=== PATIENT | female | born 1950 | race Caucasian/White ===

== ENCOUNTER 2017-08-01 09:49 | Inpatient (IN) ==
--- NOTE | 2017-08-01 10:32 | Cat Scan Report ---
CLINICAL INFORMATION: History of seizures. Decreased level consciousness question CVA COMPARISON: None. TECHNIQUE: 2.5 mm helical slices were obtained in the skull base to vertex. Following reconstruction, axial reformatted images were reviewed at bone and parenchymal windows. The exam was performed using radiation dose optimization techniques including, but not limited to, automated exposure control, adjustment of the mA and/or kV according to patient size and use of iterative reconstruction technique. FINDINGS: The ventricles, sulci, fissures, and cisterns are normal in size and configuration. No extra-axial fluid collections are identified. The cerebrum, brainstem and cerebellum are unremarkable. There is no evidence of hemorrhage, mass effect, or edema. Bone windows show benign hyperostosis in the inner skull table of the frontal temporal calvaria. IMPRESSION: No intracerebral abnormality. Interpreted and Authenticated by: Zach Tang 08/01/17
[2017-08-01 11:10] LABS: Basophils # (Auto) 0 K/mcL (0.0-0.3); Basophils % (Auto) 0.6 % (0.0-2.0); Eosinophils # (Auto) 0.2 K/mcL (0.0-0.7); Eosinophils % (Auto) 2.1 % (0.0-7.0); Granulocytes % (Auto) 66.1 % (38.0-78.0); Lymphocytes # (Auto) 1.5 K/mcL (1.5-4.8); Lymphocytes % (Auto) 19.6 % (15.5-49.0); Mean Cell Volume 93.9 fL (80.0-100.0); Mean Corpuscular HGB Conc 34.3 g/dL (31.0-36.0); Mean Corpuscular Hemoglobin 32.2 pg (26.0-34.0); Monocytes # (Auto) 0.9 K/mcL (0.1-0.9); Monocytes % (Auto) 11.6 % (1.0-12.0); Platelet Count 291 K/mcL (140-440); RBC 4.17 M/mcL (4.00-5.20); Red Cell Distribution Width 12.4 % (11.5-14.5)
--- NOTE | 2017-08-01 11:11 | Emergency Department Note ---
Altered Mental Status HPI - General Chief Complaint: Altered Mental Status Stated Complaint: Altered LOC Time Seen by Provider: 08/01/17 11:04 Source: patient Mode of arrival: ambulatory Limitations: no limitations - History of Present Illness HPI Narrative: This 66-year-old female comes in brought by her family. She lives alone and was in her usual state of mind 3 days ago when she was last called by 1 of her family members. Today she is accompanied by her brother Geovani, sister- in-law Jeri who is to Geovani, and her sister Coco. Patient reportedly called another brother named Bill who called Coco the sister and the 3 of these people Geovani, Jeri, Coco went to her home. She had called Dr. Herron' s office and Skyla had called 911 from his office. This was due to apparent confusion. They found her weak and very difficult to get into the car. EMS had evaluated her and she was brought by private car here. She was quite wobbly but no specific extremity weakness per se. She seems some confused. She could not find her purse. She wondered about her car thinking it was in town. She is very private about her health and medical conditions and so there is a question of some of the history and difficult to obtain from these pleasant family members. Patient reports a history of her urine being brown for 1 week. She also reports that she stopped taking her medications around a week ago and that she stopped drinking water around a week ago. She says she was told to do this. She reports that Medicare has put a motion detector in her home. Also that the density trap for her so she could get out. She admits to a fall recently when going up stairs but no head injury. She states that Medicare has decided "to play God" and there was a loss of coverage of some of her medications. She has a history of insomnia, her previous past medical history includes schizophrenia and depression but she denies schizophrenia. She has significant pauses in the answers to her questions were family states that this is normal. - Related Data Home Medications Medication Instructions Recorded Confirmed buspirone 5 mg tablet 5 mg PO TID PRN tab 03/26/15 03/16/17 cyclobenzaprine 10 mg tablet 10 mg PO TID PRN tab 03/26/15 03/16/17 dicyclomine 20 mg tablet 20 mg PO QDAY tab 03/26/15 03/16/17 orphenadrine citrate ER 100 mg See Dose Instructions PO .COMPLEX 03/26/15 tablet,extended release tab bimatoprost 0.01 % eye drops 1 drp OPHTHALMIC QPM ml 05/23/15 03/16/17 omeprazole 20 mg capsule,delayed 20 mg PO .COMPLEX cap 07/07/17 release Previous Rx's Medication Instructions Recorded Acetaminophen W/Codeine #3 1 tab PO Q6HP PRN #20 tab 05/28/16 [Tylenol #3] albendazole 200 mg tablet 400 mg PO BID #20 tab 06/01/16 silver ER topical gel,extended 1 applic TOPICAL QDAY #7.4 ml 06/01/16 release albuterol sulfate HFA 90 2 puff INHALATION Q6H PRN #18 g 08/04/16 mcg/actuation aerosol inhaler nortriptyline 25 mg capsule 25 mg PO QHS #30 cap 08/11/16 meclizine 25 mg tablet 25 mg PO QDAY PRN #30 tab 10/27/16 gemfibrozil 600 mg tablet 600 mg PO BID #60 tab 11/29/16 olanzapine 10 mg tablet 10 mg PO QDAY #30 tab 12/23/16 clindamycin 150 mg capsule 150 mg PO BID #20 cap 03/25/17 duloxetine 60 mg capsule,delayed 60 mg PO QDAY #90 cap 04/08/17 release phenytoin sodium extended 100 mg See Dose Instructions PO .COMPLEX 04/08/17 capsule #360 cap armodafinil 150 mg tablet 150 mg PO .COMPLEX #60 tab 04/22/17 oxybutynin chloride 5 mg tablet 10 mg PO BID PRN #120 tab 05/12/17 carvedilol 12.5 mg tablet 12.5 mg PO BID #60 tab 06/20/17 Allergies Allergy/AdvReac Type Severity Reaction Status Date / Time Amoxicillin Allergy Unknown Hives Verified 08/01/17 09:59 azithromycin Allergy Unknown Unknown Verified 08/01/17 09:59 Penicillins Allergy Unknown Unknown Verified 08/01/17 09:59 cefuroxime [From Ceftin] Allergy Diarrhea Verified 08/01/17 09:59 ciprofloxacin [From Cipro] Allergy Hives Verified 08/01/17 09:59 sulfamethoxazole Allergy Hives Verified 08/01/17 09:59 [From ] trimethoprim [From ] Allergy Hives Verified 08/01/17 09:59 Tetracycline AdvReac Unknown Unknown Verified 08/01/17 09:59 Review of Systems Constitutional: Reports: weakness. Denies: fever, chills Eyes: Reports: vision change (Has a history of macular degeneration.) ENT ED: Reports: other (Dry throat/mouth) Cardiovascular: Reports: other (Previously her heart was beating really fast. She was on Corgard 40 mg but this was increased to 80 mg but this was years ago. ). Denies: chest pain, palpitations Respiratory: Denies: cough, shortness of breath Gastrointestinal: Denies: nausea, vomiting, diarrhea, constipation Genitourinary: Reports: frequency (In her medications I find oxybutynin and darifenacin.) Neurological: Reports: headache (Intermittently), weakness, paresthesias ( Sometimes of her left leg.) Psychiatric: Reports: depression. Denies: anxiety Hematological/Lymphatic: Reports: other (Is not on any anticoagulants. She does take Excedrin sometimes for headaches.) Past Medical History - Past Medical History Medical history: Reports: hyperlipidemia, hypertension, other. Denies: atrial fibrillation, cancer, CVA, dementia, diabetes, myocardial infarction Psychiatric history: Reports: depression (She relates this to the passing of her brother Pipe, in January but family corrects the timing on this to be March.), schizophrenia Surgical history ED: Reports: cataract - Social History smoking status: Never smoker Alcohol use: Reports: None Drug use: Reports: none Physical Exam Limitations: no limitations General appearance: alert, in no apparent distress Head: atraumatic, normocephalic Eye: Present: PERRL, EOMI, other (Bilateral IOL) ENT: mucous membranes dry, other (Bilateral cerumen impaction) Neck: Present: trachea midline. Absent: tenderness, lymphadenopathy, thyromegaly Respiratory: Present: normal lung sounds bilaterally. Absent: respiratory distress, wheezes, stridor, accessory muscle use, prolonged expiratory phase Cardiovascular: Present: regular rate, normal rhythm. Absent: systolic murmur, diastolic murmur Abdominal: Present: soft. Absent: distention, tenderness Extremities: Absent: pedal edema, pretibial edema Back: Absent: CVA tenderness (R), CVA tenderness (L) Neurological: Present: alert, oriented X3, other (Was oriented to circumstances and place as well. Oriented in time. Thought that the president was Alli. There is a significant pause with her eyes staring not looking always at me for 3-6 seconds before responding to questions.) Psychiatric: Present: flat affect. Absent: agitated, anxious, manic Skin: Present: warm, dry Course Vital Signs Temperature 98.4 F 08/01/17 09:51 Pulse Rate 68 08/01/17 09:51 Respiratory Rate 18 08/01/17 09:51 Blood Pressure 141/63 08/01/17 09:51 Pulse Oximetry (%) 98 08/01/17 09:51 Temperature 98.4 F 08/01/17 09:51 Pulse Rate 65 08/01/17 13:31 Respiratory Rate 16 08/01/17 13:31 Blood Pressure 129/49 08/01/17 13:31 Pulse Oximetry (%) 100 08/01/17 13:31 Altered Mental Status - [facility] Narrative Medical decision making narrative: Altered mental status with mainly confusion. No focal deficits encountered on exam. CT was done quickly and was negative. Labs pending including phenytoin level and UDS. Possible psychosis or missed medications causing such. Some paranoid ideation. Possible need for APS to help with home circumstances. 12:02 PM UA seems positive for UTI. Anion gap was 27 so serum alcohol, salicylate and lactic acid added. 1:00 PM CPK was elevated at 2600. Case was discussed with hospitalist, Dr. Lubin, with agreement that patient needs to be monitored and treated. Ceftriaxone 1 g given. She has multiple antibiotic allergies. Cephalexin previously was diarrhea only. She had multiple other hive-like reactions to penicillin, amoxicillin, ciprofloxacin. Magnesium and phosphorus were also added. Patient will be admitted to telemetry bed. Overall seems relatively stable. She does not have particular signs of distress. Needing to get back on her medications and be monitored and stabilized from her psychiatric site if things seems important as well. [place] was involved early on but will have to wait until she is stabilized before further intervention could be or need to be made. Discussions with staff and family includes that patient is a lifelong chronic severe hoarder and taking her out of her home environment could certainly be a difficult thing for her. - Lab Data Result diagrams: 08/01/17 10:03 08/01/17 10:03 Lab Results 08/01/17 08/01/17 08/01/17 Range/Units 10:03 10:03 10:03 WBC 7.8 (4.5-11.0) K/mcL RBC 4.17 (4.00-5.20) M/mcL Hgb 13.4 (12.0-15.0) g/dL Hct 39.1 (36.0-48.0) % POC Hct 38.0 (36.0-48.0) % MCV 93.9 (80.0-100.0) fL MCH 32.2 (26.0-34.0) pg MCHC 34.3 (31.0-36.0) g/dL RDW 12.4 (11.5-14.5) % Plt Count 291 (140-440) K/mcL MPV 7.9 (7.4-10.4) fL Gran % 66.1 (38.0-78.0) % Lymph % (Auto) 19.6 (15.5-49.0) % [place] % (Auto) 11.6 (1.0-12.0) % Eos % (Auto) 2.1 (0.0-7.0) % Baso % (Auto) 0.6 (0.0-2.0) % Gran # 5.2 (1.8-8.0) K/mcL Lymph # (Auto) 1.5 (1.5-4.8) K/mcL [place] # (Auto) 0.9 (0.1-0.9) K/mcL Eos # (Auto) 0.2 (0.0-0.7) K/mcL Baso # (Auto) 0 (0.0-0.3) K/mcL POC PT 16.1 H (11.9-14.5) sec POC INR 1.4 H (0.9-1.2) APTT 29 (20-37) sec VBG Lactic Acid (0.5-2.2) mmol/L POC Sodium 139 (133-145) mmol/L Sodium 140 (133-145) mmol/L POC Potassium 3.7 (3.3-5.1) mmol/L Potassium 3.8 (3.3-5.1) mmol/L POC Chloride 107 (96-108) mmol/L Chloride 100 (96-108) mmol/L Carbon Dioxide 13 L (22-30) mmol/L POC Total CO2 15 L (22-30) mmol/L Anion Gap 27.0 H (8-16) POC BUN 19 (8-23) mg/dl BUN 20 (8-23) mg/dl Creatinine 0.8 (0.6-1.1) mg/dl POC Creatinine 0.5 L (0.6-1.1) mg/dl GFR Calculation 77 Glucose 166 H (70-105) mg/dL POC Glucose 160 H (70-105) mg/dL Calcium 9.8 (8.6-10.4) mg/dl POC WB Ioniz Calcium 1.23 (1.16-1.32) mmol/L Total Bilirubin 0.5 (0.0-1.0) mg/dL AST 92 H (0-37) U/l ALT 31 (0-40) U/l Alkaline Phosphatase 155 H (39-117) U/L Total Creatine Kinase (24-170) IU/L CK-MB (CK-2) (0-2.9) ng/ml Troponin T (0-0.03) ng/ml Total Protein 7.1 (5.9-8.4) gm/dL Albumin 4.4 (3.2-5.2) gm/dL Globulin 2.7 (2.2-3.7) gm/dL Albumin/Globulin Ratio 1.6 (1.0-2.3) Urine Color Urine Appearance Urine pH (5.0-9.0) Ur Specific [place] (1.000-1.035) Urine Protein (NEG) mg/dL Urine Glucose (UA) (NEG) mg/dL Urine Ketones (NEG) mg/dL Urine Occult Blood (<0.03) mg/dL Urine Nitrate (NEG) Urine Bilirubin (NEG) mg/dL Urine Urobilinogen (NEG) mg/dL Ur Leukocyte Esterase (NEG) /uL Urine RBC (0-1) /hpf Urine WBC (0-4) /hpf Ur Squamous Epith Cells (0-4) /hpf Ur Transition Epith Cell (0-2) /hpf Urine Bacteria (0) /hpf Hyaline Casts (0-2) /lpf Ur Culture Indicated? Salicylates mg/dL Urine Opiates Screen (NONDETECTED) Urine Methadone Screen (NONDETECTED) Ur Barbiturates Screen (NONDETECTED) Phenytoin ug/mL Phenytoin Dose Pheny Last Dose Time Ur Phencyclidine Scrn (NONDETECTED) Ur Amphetamines Screen (NONDETECTED) U Benzodiazepines Scrn (NONDETECTED) Urine Cocaine Screen (NONDETECTED) U Marijuana (THC) Screen (NONDETECTED) Ethyl Alcohol (<0.010) gm/dl 08/01/17 08/01/17 08/01/17 Range/Units 10:03 10:03 10:03 WBC (4.5-11.0) K/mcL RBC (4.00-5.20) M/mcL Hgb (12.0-15.0) g/dL Hct (36.0-48.0) % POC Hct (36.0-48.0) % MCV (80.0-100.0) fL MCH (26.0-34.0) pg MCHC (31.0-36.0) g/dL RDW (11.5-14.5) % Plt Count (140-440) K/mcL MPV (7.4-10.4) fL Gran % (38.0-78.0) % Lymph % (Auto) (15.5-49.0) % [place] % (Auto) (1.0-12.0) % Eos % (Auto) (0.0-7.0) % Baso % (Auto) (0.0-2.0) % Gran # (1.8-8.0) K/mcL Lymph # (Auto) (1.5-4.8) K/mcL [place] # (Auto) (0.1-0.9) K/mcL Eos # (Auto) (0.0-0.7) K/mcL Baso # (Auto) (0.0-0.3) K/mcL POC PT (11.9-14.5) sec POC INR (0.9-1.2) APTT (20-37) sec VBG Lactic Acid (0.5-2.2) mmol/L POC Sodium (133-145) mmol/L Sodium (133-145) mmol/L POC Potassium (3.3-5.1) mmol/L Potassium (3.3-5.1) mmol/L POC Chloride (96-108) mmol/L Chloride (96-108) mmol/L Carbon Dioxide (22-30) mmol/L POC Total CO2 (22-30) mmol/L Anion Gap (8-16) POC BUN (8-23) mg/dl BUN (8-23) mg/dl Creatinine (0.6-1.1) mg/dl POC Creatinine (0.6-1.1) mg/dl GFR Calculation Glucose (70-105) mg/dL POC Glucose (70-105) mg/dL Calcium (8.6-10.4) mg/dl POC WB Ioniz Calcium (1.16-1.32) mmol/L Total Bilirubin (0.0-1.0) mg/dL AST (0-37) U/l ALT (0-40) U/l Alkaline Phosphatase (39-117) U/L Total Creatine Kinase 2633 H (24-170) IU/L CK-MB (CK-2) 12.5 H (0-2.9) ng/ml Troponin T < 0.01 (0-0.03) ng/ml Total Protein (5.9-8.4) gm/dL Albumin (3.2-5.2) gm/dL Globulin (2.2-3.7) gm/dL Albumin/Globulin Ratio (1.0-2.3) Urine Color Urine Appearance Urine pH (5.0-9.0) Ur Specific [place] (1.000-1.035) Urine Protein (NEG) mg/dL Urine Glucose (UA) (NEG) mg/dL Urine Ketones (NEG) mg/dL Urine Occult Blood (<0.03) mg/dL Urine Nitrate (NEG) Urine Bilirubin (NEG) mg/dL Urine Urobilinogen (NEG) mg/dL Ur Leukocyte Esterase (NEG) /uL Urine RBC (0-1) /hpf Urine WBC (0-4) /hpf Ur Squamous Epith Cells (0-4) /hpf Ur Transition Epith Cell (0-2) /hpf Urine Bacteria (0) /hpf Hyaline Casts (0-2) /lpf Ur Culture Indicated? Salicylates mg/dL Urine Opiates Screen (NONDETECTED) Urine Methadone Screen (NONDETECTED) Ur Barbiturates Screen (NONDETECTED) Phenytoin 1.9 ug/mL Phenytoin Dose Not Reportable Pheny Last Dose Time Not Reportable Ur Phencyclidine Scrn (NONDETECTED) Ur Amphetamines Screen (NONDETECTED) U Benzodiazepines Scrn (NONDETECTED) Urine Cocaine Screen (NONDETECTED) U Marijuana (THC) Screen (NONDETECTED) Ethyl Alcohol (<0.010) gm/dl 08/01/17 08/01/17 08/01/17 Range/Units 10:03 10:56 10:57 WBC (4.5-11.0) K/mcL RBC (4.00-5.20) M/mcL Hgb (12.0-15.0) g/dL Hct (36.0-48.0) % POC Hct (36.0-48.0) % MCV (80.0-100.0) fL MCH (26.0-34.0) pg MCHC (31.0-36.0) g/dL RDW (11.5-14.5) % Plt Count (140-440) K/mcL MPV (7.4-10.4) fL Gran % (38.0-78.0) % Lymph % (Auto) (15.5-49.0) % [place] % (Auto) (1.0-12.0) % Eos % (Auto) (0.0-7.0) % Baso % (Auto) (0.0-2.0) % Gran # (1.8-8.0) K/mcL Lymph # (Auto) (1.5-4.8) K/mcL [place] # (Auto) (0.1-0.9) K/mcL Eos # (Auto) (0.0-0.7) K/mcL Baso # (Auto) (0.0-0.3) K/mcL POC PT (11.9-14.5) sec POC INR (0.9-1.2) APTT (20-37) sec VBG Lactic Acid (0.5-2.2) mmol/L POC Sodium (133-145) mmol/L Sodium (133-145) mmol/L POC Potassium (3.3-5.1) mmol/L Potassium (3.3-5.1) mmol/L POC Chloride (96-108) mmol/L Chloride (96-108) mmol/L Carbon Dioxide (22-30) mmol/L POC Total CO2 (22-30) mmol/L Anion Gap (8-16) POC BUN (8-23) mg/dl BUN (8-23) mg/dl Creatinine (0.6-1.1) mg/dl POC Creatinine (0.6-1.1) mg/dl GFR Calculation Glucose (70-105) mg/dL POC Glucose (70-105) mg/dL Calcium (8.6-10.4) mg/dl POC WB Ioniz Calcium (1.16-1.32) mmol/L Total Bilirubin (0.0-1.0) mg/dL AST (0-37) U/l ALT (0-40) U/l Alkaline Phosphatase (39-117) U/L Total Creatine Kinase (24-170) IU/L CK-MB (CK-2) (0-2.9) ng/ml Troponin T (0-0.03) ng/ml Total Protein (5.9-8.4) gm/dL Albumin (3.2-5.2) gm/dL Globulin (2.2-3.7) gm/dL Albumin/Globulin Ratio (1.0-2.3) Urine Color Yellow Urine Appearance Hazy Urine pH 5.0 (5.0-9.0) Ur Specific [place] 1.017 (1.000-1.035) Urine Protein 30 A (NEG) mg/dL Urine Glucose (UA) Negative (NEG) mg/dL Urine Ketones 80 A (NEG) mg/dL Urine Occult Blood 0.03 A (<0.03) mg/dL Urine Nitrate Neg (NEG) Urine Bilirubin Neg (NEG) mg/dL Urine Urobilinogen 2.0 A (NEG) mg/dL Ur Leukocyte Esterase 250 A (NEG) /uL Urine RBC 1 (0-1) /hpf Urine WBC 48 H (0-4) /hpf Ur Squamous Epith Cells < 1 (0-4) /hpf Ur Transition Epith Cell < 1 (0-2) /hpf Urine Bacteria Many A (0) /hpf Hyaline Casts 2 (0-2) /lpf Ur Culture Indicated? Yes Salicylates mg/dL Urine Opiates Screen None detected (NONDETECTED) Urine Methadone Screen None detected (NONDETECTED) Ur Barbiturates Screen None detected (NONDETECTED) Phenytoin ug/mL Phenytoin Dose Pheny Last Dose Time Ur Phencyclidine Scrn None detected (NONDETECTED) Ur Amphetamines Screen None detected (NONDETECTED) U Benzodiazepines Scrn None detected (NONDETECTED) Urine Cocaine Screen None detected (NONDETECTED) U Marijuana (THC) Screen None detected (NONDETECTED) Ethyl Alcohol < 0.010 (<0.010) gm/dl 08/01/17 08/01/17 Range/Units 12:22 12:22 WBC (4.5-11.0) K/mcL RBC (4.00-5.20) M/mcL Hgb (12.0-15.0) g/dL Hct (36.0-48.0) % POC Hct (36.0-48.0) % MCV (80.0-100.0) fL MCH (26.0-34.0) pg MCHC (31.0-36.0) g/dL RDW (11.5-14.5) % Plt Count (140-440) K/mcL MPV (7.4-10.4) fL Gran % (38.0-78.0) % Lymph % (Auto) (15.5-49.0) % [place] % (Auto) (1.0-12.0) % Eos % (Auto) (0.0-7.0) % Baso % (Auto) (0.0-2.0) % Gran # (1.8-8.0) K/mcL Lymph # (Auto) (1.5-4.8) K/mcL [place] # (Auto) (0.1-0.9) K/mcL Eos # (Auto) (0.0-0.7) K/mcL Baso # (Auto) (0.0-0.3) K/mcL POC PT (11.9-14.5) sec POC INR (0.9-1.2) APTT (20-37) sec VBG Lactic Acid 1.1 (0.5-2.2) mmol/L POC Sodium (133-145) mmol/L Sodium (133-145) mmol/L POC Potassium (3.3-5.1) mmol/L Potassium (3.3-5.1) mmol/L POC Chloride (96-108) mmol/L Chloride (96-108) mmol/L Carbon Dioxide (22-30) mmol/L POC Total CO2 (22-30) mmol/L Anion Gap (8-16) POC BUN (8-23) mg/dl BUN (8-23) mg/dl Creatinine (0.6-1.1) mg/dl POC Creatinine (0.6-1.1) mg/dl GFR Calculation Glucose (70-105) mg/dL POC Glucose (70-105) mg/dL Calcium (8.6-10.4) mg/dl POC WB Ioniz Calcium (1.16-1.32) mmol/L Total Bilirubin (0.0-1.0) mg/dL AST (0-37) U/l ALT (0-40) U/l Alkaline Phosphatase (39-117) U/L Total Creatine Kinase (24-170) IU/L CK-MB (CK-2) (0-2.9) ng/ml Troponin T (0-0.03) ng/ml Total Protein (5.9-8.4) gm/dL Albumin (3.2-5.2) gm/dL Globulin (2.2-3.7) gm/dL Albumin/Globulin Ratio (1.0-2.3) Urine Color Urine Appearance Urine pH (5.0-9.0) Ur Specific [place] (1.000-1.035) Urine Protein (NEG) mg/dL Urine Glucose (UA) (NEG) mg/dL Urine Ketones (NEG) mg/dL Urine Occult Blood (<0.03) mg/dL Urine Nitrate (NEG) Urine Bilirubin (NEG) mg/dL Urine Urobilinogen (NEG) mg/dL Ur Leukocyte Esterase (NEG) /uL Urine RBC (0-1) /hpf Urine WBC (0-4) /hpf Ur Squamous Epith Cells (0-4) /hpf Ur Transition Epith Cell (0-2) /hpf Urine Bacteria (0) /hpf Hyaline Casts (0-2) /lpf Ur Culture Indicated? Salicylates < 0.3 mg/dL Urine Opiates Screen (NONDETECTED) Urine Methadone Screen (NONDETECTED) Ur Barbiturates Screen (NONDETECTED) Phenytoin ug/mL Phenytoin Dose Pheny Last Dose Time Ur Phencyclidine Scrn (NONDETECTED) Ur Amphetamines Screen (NONDETECTED) U Benzodiazepines Scrn (NONDETECTED) Urine Cocaine Screen (NONDETECTED) U Marijuana (THC) Screen (NONDETECTED) Ethyl Alcohol (<0.010) gm/dl Disposition Pt seen by [facility]BAC[facility] ROLLER/PA only: No Clinical Impression: Confusion, Paranoid ideation, Bacterial cystitis Mental status change Qualifiers: Altered mental status type: unspecified Qualified Code(s): R41.82 - Altered mental status, unspecified Rhabdomyolysis Qualifiers: Rhabdomyolysis type: non-traumatic Qualified Code(s): M62.82 - Rhabdomyolysis Disposition: Xfer As Inpt ([facility]) Referrals: Cali Herron MD [Primary Care Provider] -
[2017-08-01 11:23] LABS: ALT/SGPT 31 U/l (0-40); Albumin 4.4 gm/dL (3.2-5.2); Albumin/Globulin Ratio 1.6 (1.0-2.3); Alkaline Phosphatase 155 U/L (39-117); Blood Urea Nitrogen 20 mg/dl (8-23)
[2017-08-01 11:35] LABS: Creatine Kinase MB 12.5 ng/ml (0-2.9)
[2017-08-01 11:47] LABS: Appearance,Urine HAZY; Bacteria,Urine MANY /hpf (0); Bilirubin,Urine NEG (NEG); Color,Urine YELLOW; Glucose,Urine (UA) NEGATIVE (NEG); Leukocyte Esterase,Urine 250 /uL (NEG); Nitrate,Urine NEG (NEG); Protein,Urine 30 mg/dL (NEG); Specific Gravity,Urine 1.017 (1.000-1.035); Urine Blood 0.03 mg/dL (<0.03); Urine Hyaline Cast 2 /lpf (0-2); Urine RBC 1 /hpf (0-1); Urine Squamous Epithelial Cell < 1 /hpf (0-4); Urine Transitional Epi Cells < 1 /hpf (0-2); Urine WBC 48 /hpf (0-4)
[2017-08-01 12:02] LABS: Amphetamine Screen,Urine NONE DETECTED (NONDETECTED); Benzodiazepines Screen,Urine NONE DETECTED (NONDETECTED); Cocaine Screen,Urine NONE DETECTED (NONDETECTED); Opiate Screen,Urine NONE DETECTED (NONDETECTED)
[2017-08-01] MEDS ORDERED: LACTATED RINGERS 1,000 ML IV ONE (12:26)
[2017-08-01] MEDS ORDERED: cefTRIAXone 1 GM in DEXTROSE 5% IN WATER 50 ML IV SCH (14:00)
[2017-08-01 14:25] LABS: Magnesium 1.8 mg/dL (1.6-2.5)
--- NOTE | 2017-08-01 15:20 | Internal Med History&Physical ---
Medical - H&P: HPI Patient information: Note initiated : 08/01/17 at 3:19 pm Service Date, if different from initiated Date: [] Patient: Bibi Murrell a 66 y/o F admitted on for Altered LOC. Chief Complaint: Found confused and weak by family History of present illness: Ms. Murrell is a 66 year old F with a history of schizophrenia, glaucoma, seizures who is brought in by her family because of weakness and confusion. History is obtained in interviewing the patient as well as her family, reviewing records in the chart. This morning the patient called one of her brothers. She seemed confused. Another brother, his as well as his sister saw the patient and her home. She was confused and weak. She had some complaints of people being in her home. She gave a history of being told that she had to be on "bed rest". Paramedics were called and she was eventually brought to the hospital after evaluation by private vehicle. When I interviewed the patient, she says that she's been at home in bed for at least a week. She states that there were people in her house that told her that she had to be at bed rest. She noted that [place], and the people had been sent by Medicare to keep her from going to the hospital. Though she reports that was "not working" and she was getting weaker. During the week that she was in bed, she is apparently up using the commode though is complaining of being very weak and difficult to stand from the commode. She's had minimal water or oral intake during that time, and has stopped taking her medicines. She states that she is filled a pill container ( pharmacy sized pill bottle) with water and drank approximately 2 of those a day. She states she may have been in bed for longer than a week. At one point she apparently was on the floor, had to scoot herself to the stairs, to help pull herself to a standing position. Patient has a constant refrain of Medicare changing around her medications and not paying for some and that she was then told to stop taking all of them. This seems to plate into her perception that Medicare and sent people to her home to install motion detectors and to care for her there to keep her from coming to the hospital. In discussing with her family, one of them had a phone conversation with her a few days ago and she seemed her normal self. The last visited her about a week ago apparently. Patient complains of her legs aching. She "feels wobbly" on standing. This is gotten worse over the last several days or week. She complains of a dry mouth. She complains of ringing in her ear which is chronic and about the same as usual. She has noted heartburn symptoms in the last week or so which are more frequently and more intense than usual for her. She has not had any chest pain , abdominal pain, nausea, vomiting, dysuria. She feels cold, though she feels cold most the time. She has noted decreased urine output and her urine has darkened. She denies any attempts or thoughts of self harm, no ingestions of antifreeze, brake fluid or other solvents. No thoughts of harming others. In reviewing clinic notes, I see in March she was seen by primary care, at which point some of her medicines had to be changed due to her chcf and change in insurance policies and having to find new formulary alternatives. The emergency department, she was acidotic with an anion gap metabolic acidosis though a normal lactate. She also had rhabdomyolysis with CPK in the 2600 range. She is being admitted from the hospital for further evaluation and treatment of metabolic acidosis and rhabdomyolysis. Review of systems: Except as noted in history of present illness, the remainder of 12 point review of systems is negative Medical - H&P: PMH Medical history: Hypertension, essential (Chronic) Hyperlipemia (Chronic) Depressive disorder (Chronic) recurrent, recent grief reaction from brother's Schizophrenia (Chronic) Unspec/Chronic Menopausal syndrome (Chronic) Menopausal-Postmenopausal Disorder NOS Postmenopausal related mood disorder (Resolved) Acute bronchitis (Acute) Repetitive strain injury of lower back (Acute) Trigger finger, acquired (Chronic) Neck sprain and strain (Resolved) Impacted cerumen (Resolved) Decubitus ulcer of buttock, stage 2 (Acute) Surgical history: No reported surgeries Pertinent family history: Father had CVA at 80, also had DM Social history: The patient lives alone. 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 She does not smoke or drink. Medical - H&P: Meds Home Medications Medication Instructions Recorded Confirmed Type buspirone 5 mg tablet 5 mg PO TID tab 03/26/15 08/01/17 History orphenadrine citrate ER 100 mg 1 - 3 tab PO DAILYP PRN tab 03/26/15 08/01/17 History tablet,extended release bimatoprost 0.01 % eye drops 1 drp OU HS ml 05/23/15 08/01/17 History Acetaminophen W/Codeine #3 1 tab PO Q6HP PRN #20 tab 05/28/16 08/01/17 Rx [Tylenol #3] albuterol sulfate HFA 90 2 puff INHALATION Q6H PRN #18 g 08/04/16 08/01/17 Rx mcg/actuation aerosol inhaler nortriptyline 25 mg capsule 25 mg PO QHS #30 cap 08/11/16 08/01/17 Rx meclizine 25 mg tablet 25 mg PO QDAY PRN #30 tab 10/27/16 08/01/17 Rx gemfibrozil 600 mg tablet 600 mg PO BID #60 tab 11/29/16 08/01/17 Rx olanzapine 10 mg tablet 10 mg PO QDAY #30 tab 12/23/16 08/01/17 Rx duloxetine 60 mg capsule,delayed 60 mg PO QDAY #90 cap 04/08/17 08/01/17 Rx release oxybutynin chloride 5 mg tablet 10 mg PO BID PRN #120 tab 05/12/17 08/01/17 Rx carvedilol 12.5 mg tablet 12.5 mg PO BID #60 tab 06/20/17 08/01/17 Rx omeprazole 20 mg capsule,delayed 20 mg PO ACB cap 07/07/17 08/01/17 History release Armodafinil [Nuvigil] 150 mg PO BID@0400,1100 08/01/17 08/01/17 History Nadolol [Corgard] 80 mg PO DAILY 08/01/17 08/01/17 History Phenytoin Sod [Dilantin] 100 mg PO DAILY@0800,1200 08/01/17 08/01/17 History Phenytoin Sodium Extended 200 mg PO HS 08/01/17 08/01/17 History [Phenytek] Allergies Allergy/AdvReac Type Severity Reaction Status Date / Time azithromycin Allergy Unknown Unknown Verified 08/01/17 09:59 Penicillins Allergy Unknown Hives Verified 08/01/17 16:46 cefuroxime [From Ceftin] Allergy Diarrhea Verified 08/01/17 09:59 ciprofloxacin [From Cipro] Allergy Hives Verified 08/01/17 09:59 sulfamethoxazole Allergy Hives Verified 08/01/17 09:59 [From Septra] trimethoprim [From Septra] Allergy Hives Verified 08/01/17 09:59 Tetracycline AdvReac Unknown Unknown Verified 08/01/17 09:59 Medical - H&P: Exam - Constitutional Vitals: Temp Pulse Resp BP Pulse Ox 98.4 F 73 13 130/73 100 08/01/17 09:51 08/01/17 14:15 08/01/17 14:15 08/01/17 14:15 08/01/17 14:15 Exam: General: Alert, in no acute distress, lying on the emergency department gurney. HEENT: Normocephalic. Pupils are 4 mm and equally round and reactive to light. Extraocular movements are intact without nystagmus. Sclera are anicteric. No conjunctival injection. Oropharynx is with tachy mucous membranes, no lip or gum lesions. Tongue is midline. Neck: Supple, no meningismus. No thyromegaly. Chest: Clear to auscultation bilaterally with no rales or wheezes. No accessory muscle use. Cardiovascular: Regular rate and rhythm without murmur gallop or rub. Carotid pulses are 2+ without bruit. There is no lower extremity edema. JVP is normal. Abdomen: Soft, nontender without guarding or rebound. Active bowel sounds. No hepatosplenomegaly. Lymphatic: No cervical or supraclavicular lymphadenopathy. There is 1 subcentimeter submental lymph node on the right is palpable. Skin: Warm, dry. No rash. Skin turgor is normal Musculoskeletal: No joint erythema or tenderness. Normal range of motion in the upper and lower extremities. Strength 5-/5 in upper and lower extremities without focal weakness. Digits without cyanosis or clubbing. Neuro: Alert, oriented to person, place and appears to be oriented to situation. Cranial nerves II through XII intact (VF not tested). Sensation intact to light touch. DTR 2+ in the upper and lower extremity. Psychiatric: Affect appears a bit flat, there is a delay in responses to questions, though family notes that is somewhat chronic. She makes good eye contact during the interview. Responses to questions appeared to be goal- directed. She reports visual hallucinations of people being in her house and installing motion detectors. Denies auditory hallucinations. Denies any suicidal thoughts or intent. Denies any homicidal thoughts or intent. Medical - H&P: Reslt - Labs CBC & Chem 7: 08/01/17 10:03 08/01/17 17:50 Labs: Short CBC 08/01/17 Range/Units 10:03 WBC 7.8 (4.5-11.0) K/mcL Hgb 13.4 (12.0-15.0) g/dL Hct 39.1 (36.0-48.0) % Plt Count 291 (140-440) K/mcL BMP 08/01/17 10:03 Sodium 140 Potassium 3.8 Chloride 100 Carbon Dioxide 13 L BUN 20 Creatinine 0.8 Glucose 166 H Calcium 9.8 Cardiac Enzymes 08/01/17 08/01/17 Range/Units 10:03 10:03 Total Creatine Kinase 2633 H (24-170) IU/L CK-MB (CK-2) 12.5 H (0-2.9) ng/ml Troponin T < 0.01 (0-0.03) ng/ml Liver Function 08/01/17 Range/Units 10:03 Total Bilirubin 0.5 (0.0-1.0) mg/dL AST 92 H (0-37) U/l ALT 31 (0-40) U/l Alkaline Phosphatase 155 H (39-117) U/L Albumin 4.4 (3.2-5.2) gm/dL Urine 08/01/17 Range/Units 10:56 Urine Color Yellow Urine Appearance Hazy Urine pH 5.0 (5.0-9.0) Ur Specific [place] 1.017 (1.000-1.035) Urine Protein 30 A (NEG) mg/dL Urine Glucose (UA) Negative (NEG) mg/dL Urine also positive for ketones; positive for leukocyte esterase, 48 white cells and many bacteria/HPF on microscopic. - Imaging and Cardiology CT scan - head Additional comments: IMPRESSION: No intracerebral abnormality Medical - H&P: A/P (1) Metabolic acidosis Current visit: Yes Status: Acute (2) Delusions Current visit: Yes Status: Acute (3) Bacterial cystitis Current visit: Yes Status: Acute (4) Rhabdomyolysis Current visit: Yes Status: Acute (5) Schizophrenia Problem details: Unspec/Chronic Current visit: Yes Status: Chronic - Narrative A/P Narrative: 66-year-old female with a history of schizophrenia, depression, seizure disorder , on phenytoin, presents with confusion and weakness. She has delusions, and subsequently has metabolic acidosis and rhabdomyolysis likely related to prolonged inactivity and starvation. Anion gap metabolic acidosis. Serum bicarbonate 13, anion gap 27 at presentation. Patient denies any ingestions and salicylates and ethanol undetectable. Denies any suicidality or ingestions. Lactate is normal. Urinalysis without evidence of crystals. She does have a history of being at home with minimal by mouth intake and being in bed for approximately a week, possibly longer. She does have ketones in her urine. This may be starvation ketosis with a metabolic acidosis, as no other etiology has been found. Plan: 1. Inpatient admission, as anticipated greater than 2 minutes were required to correct acidosis as well as expected electrolyte abnormalities. 2. Fluid hydration, follow anion gap 3. Close attention to electrolytes, particularly potassium with correction of acidosis 4. Follow remainder of electrolytes during introduction of nourishment. In particular follow phosphorus. Rhabdomyolysis mild. Likely secondary to being in bed most of the time for the last week or 2. Plan: IV fluids and hydration, follow CPK. Starvation ketosis. Ketones in the urine, no evidence of DKA. Suspect this is due to decreased food intake over the last week or so. Plan: Reintroduce diet, follow electrolytes as noted above. Schizophrenia with delusions. Patient has delusions of Medicare sending people into her home to keep her from going to the hospital. Also delusions and complaints of Medicare not covering her medications that she needs. This latter may stem from the need to change some medications for formulary reasons when she retired in insurance changed earlier this year. Unclear what triggered the current episode. No evidence of intent for self-harm or for harm of others. She is easily redirectable. Plan: Resume antipsychotic medications. Urinary tract infection. His may have contributed to her decline in function and development of delusions. Patient reports that cefuroxime causes diarrhea. She has multiple other drug allergies. She apparently did not have hives or rash with cefuroxime. She is amenable to trying ceftriaxone as initial treatment for UTI. As she has not had a rash or other reaction to cephalosporin , this likely will not cross-react with her penicillin allergy. Plan: Ceftriaxone, follow-up urine culture. Seizure disorder. Cannot find details in initial review of chart. Has been on phenytoin at least as far back as 2014. No reported seizures. Phenytoin level subtherapeutic at presentation. Plan: Resume phenytoin at home dose. CODE STATUS is full code.
[2017-08-01] MEDS ORDERED: ONDANSETRON 4 MG/2 ML VIAL IV PRN (17:07)
[2017-08-01] MEDS: LACTATED RINGERS 1,000 ML IV SCH (17:51)
[2017-08-01 19:40] LABS: Blood Urea Nitrogen 14 mg/dl (8-23)
[2017-08-01] MEDS ORDERED: OXYBUTYNIN CHLORIDE 5 MG TABLET PO PRN (20:17)
[2017-08-01] MEDS: PHENYTOIN SOD 100 MG CAPSULE PO SCH (21:01)
[2017-08-01] MEDS: NORTRIPTYLINE 25 MG CAPSULE PO SCH (21:02)
[2017-08-01] MEDS: CARVEDILOL 12.5 MG TABLET PO SCH (21:02)
[2017-08-01] MEDS: busPIRone 5 MG TABLET PO SCH (21:02)
[2017-08-01] MEDS: BIMATOPROST OU SCH (21:09)
[2017-08-01] MEDS ORDERED: POTASSIUM PHOSPHATE 20 MEQ in DEXTROSE 5% IN WATER 250 ML IV PRN (22:22)
[2017-08-01] MEDS ORDERED: POTASSIUM CHLORIDE 20 MEQ in DEXTROSE 5% IN WATER 250 ML IV ONE (22:22)
[2017-08-01] MEDS ORDERED: POTASSIUM CHLORIDE 20 MEQ in DEXTROSE 5% IN WATER 250 ML IV PRN (22:24)
[2017-08-02] MEDS: LACTATED RINGERS 1,000 ML IV SCH ×5 (00:48→22:00)
[2017-08-02 02:53] LABS: ALT/SGPT 21 U/l (0-40); Albumin 3.2 gm/dL (3.2-5.2); Albumin/Globulin Ratio 1.7 (1.0-2.3); Alkaline Phosphatase 115 U/L (39-117); Bilirubin,Direct < 0.2 mg/dL (0.0-0.3); Blood Urea Nitrogen 12 mg/dl (8-23); Gamma Glutamyl Transpeptidase 66 U/L (5-36); Magnesium 1.5 mg/dL (1.6-2.5)
[2017-08-02] MEDS ORDERED: POTASSIUM CHLORIDE 20 MEQ/10 ML VIAL IV ONE (03:34)
[2017-08-02] MEDS ORDERED: MAGNESIUM SULFATE 2 GM/50 ML BAG IV ONE (03:34)
[2017-08-02] MEDS ORDERED: MAGNESIUM SULFATE 2 GM/50 ML BAG IV PRN (03:50)
[2017-08-02 06:47] LABS: ALT/SGPT 21 U/l (0-40); Albumin/Globulin Ratio 1.4 (1.0-2.3); Alkaline Phosphatase 116 U/L (39-117); Bilirubin,Direct < 0.2 mg/dL (0.0-0.3); Blood Urea Nitrogen 10 mg/dl (8-23); Creatine Kinase 792 IU/L (24-170); Gamma Glutamyl Transpeptidase 65 U/L (5-36); Magnesium 2.5 mg/dL (1.6-2.5); Uric Acid 9.4 mg/dL (2.5-8.0)
[2017-08-02] MEDS: CARVEDILOL 12.5 MG TABLET PO SCH ×2 (07:51→17:56)
[2017-08-02] MEDS: PHENYTOIN SOD 100 MG CAPSULE PO SCH ×3 (07:51→21:22)
--- NOTE | 2017-08-02 08:02 | Internal Med Progress Note ---
Medical - PN: Subj Patient information: Note initiated : 08/02/17 at 7:57 am Service Date, if different from initiated Date: [] Patient: Bibi Murrell 66 y/o F admitted on 08/01/17 for Altered LOC. Chief Complaint: f/u acidosis, rhabdo Interval history: August 01: Admitted after family noticed she sounded confused on the phone. Was weak. Found to have rhabdomyolysis, anion gap metabolic acidosis with ketosis. Underlying schizophrenia, with paranoid delusions that she been told to stay in bed by the people in her house who been sent by Medicare help take care of her social she wouldn't go to the hospital. Had been down in bed without eating for about a week by her account. August 02: Acidosis is improved though still persist. Electrolytes have dropped, as were required repletion of potassium, magnesium and now phosphorus. Appetite good, eating well. Less concerned about Medicare today, though comments "I should be covered". - Constitutional Vitals: Vital Signs Temp Pulse Resp BP Pulse Ox 97.8 F 67 16 125/54 100 08/02/17 03:49 08/01/17 17:35 08/02/17 03:49 08/02/17 03:49 08/02/17 03:49 Period Temp Pulse Resp BP Sys/Jessica Pulse Ox Last 24 Hr 97.8 F-98.4 F 61-73 10-20 68-142/44-103 95-100 Intake and Output 08/01/17 08/02/17 08/02/17 21:59 05:59 13:59 Intake Total 650 / 650 1603 / 1603 Output Total 300 / 300 500 / 500 300 / 300 Balance 350 / 350 1103 / 1103 -300 / -300 Weight 177 lb 2 oz Intake & Output: Intake & Output 08/01/17 08/02/17 08/02/17 21:59 05:59 13:59 Intake Total 650 / 650 1603 / 1603 Output Total 300 / 300 500 / 500 300 / 300 Balance 350 / 350 1103 / 1103 -300 / -300 Weight 177 lb 2 oz Intake: IV 50 / 50 1423 / 1423 Lactated Ringers 1,000 ml @ 150 1423 / 1423 mls/hr IV .Q6H40M [facility] Rx#: [id number] Rocephin 1 gm In Dextrose 5% in 50 / 50 Water 50 ml @ 100 mls/hr IV Q24H [facility] Rx#:[id number] Oral 600 / 600 180 / 180 Output: Void Amount 300 / 300 500 / 500 300 / 300 Other: # Bowel Movements 0 Exam: General: Sitting up in chair in no acute distress Chest: Clear, respirations unlabored Cardio vascular: Regular, no edema Abdomen: Soft, active bowel sounds Neuro: Alert, oriented to person and place. Nonfocal Psych: Affect is mildly flat, good eye contact, less but delay with responses today. Seems to be less evidence of delusion today. No auditory or visual hallucinations. Medical - PN: Obj Da - Labs CBC & Chem 7: 08/01/17 10:03 08/02/17 05:08 Labs: Abnormal Lab Results 08/02/17 08/02/17 08/01/17 05:08 01:50 17:50 POC PT POC INR Potassium 3.1 L Carbon Dioxide 18 L 19 L 15 L POC Total CO2 Anion Gap 17.0 H 17.0 H 23.0 H POC Creatinine Glucose 182 H 120 H POC Glucose Uric Acid 9.4 H 10.0 H Calcium 8.5 L Phosphorus 2.5 L Magnesium 1.5 L GGT 65 H 66 H AST 41 H 46 H Alkaline Phosphatase Total Creatine Kinase 792 H CK-MB (CK-2) Total Protein 5.1 L 5.1 L Albumin 3.0 L Globulin 2.1 L 1.9 L Triglycerides 231 H 241 H Urine Protein Urine Ketones Urine Occult Blood Urine Urobilinogen Ur Leukocyte Esterase Urine WBC Urine Bacteria 08/01/17 08/01/17 08/01/17 10:56 10:03 10:03 POC PT POC INR Potassium Carbon Dioxide 13 L POC Total CO2 15 L Anion Gap 27.0 H POC Creatinine 0.5 L Glucose 166 H POC Glucose 160 H Uric Acid Calcium Phosphorus Magnesium GGT AST 92 H Alkaline Phosphatase 155 H Total Creatine Kinase 2633 H CK-MB (CK-2) 12.5 H Total Protein Albumin Globulin Triglycerides Urine Protein 30 A Urine Ketones 80 A Urine Occult Blood 0.03 A Urine Urobilinogen 2.0 A Ur Leukocyte Esterase 250 A Urine WBC 48 H Urine Bacteria Many A 08/01/17 10:03 POC PT 16.1 H POC INR 1.4 H Potassium Carbon Dioxide POC Total CO2 Anion Gap POC Creatinine Glucose POC Glucose Uric Acid Calcium Phosphorus Magnesium GGT AST Alkaline Phosphatase Total Creatine Kinase CK-MB (CK-2) Total Protein Albumin Globulin Triglycerides Urine Protein Urine Ketones Urine Occult Blood Urine Urobilinogen Ur Leukocyte Esterase Urine WBC Urine Bacteria Meds: Medications Acetaminophen (Tylenol) 650 mg PO Q6HP PRN PRN Reason: PAIN/FEVER > 101 Buspirone HCl (Buspar) 5 mg PO TID [facility] Last Admin: 08/01/17 21:02 Dose: 5 mg Carvedilol (Coreg) 6.25 mg PO BIDCC [facility] Last Admin: 08/02/17 07:51 Dose: 6.25 mg Ceftriaxone Sodium (Rocephin) 1 gm IV DAILY [facility] Duloxetine HCl (Cymbalta) 60 mg PO DAILY [facility] Enoxaparin Sodium (Lovenox) 40 mg SQ DAILY [facility] Lactated Ringer's (Lactated Ringers) 1,000 mls @ 150 mls/hr IV .Q6H40M [facility] Last Admin: 08/02/17 07:00 Dose: Not Given Potassium Phosphate 20 meq/ (Dextrose) 254.5455 mls @ 127.273 mls/hr IV PRN PRN PRN Reason: phos less than 1.6 Potassium Chloride 20 meq/ (Dextrose) 260 mls @ 130 mls/hr IV PRN PRN PRN Reason: administer for K less tahn 3.5 Magnesium Sulfate (Magnesium Sulfate) 2 gm in 50 mls @ 50 mls/hr IV PRN PRN PRN Reason: mag less than 1.7 Nortriptyline HCl (Pamelor) 25 mg PO QHS [facility] Last Admin: 08/01/17 21:02 Dose: 25 mg Olanzapine (Zyprexa) 10 mg PO DAILY [facility] Ondansetron HCl (Zofran) 4 mg IV Q4HP PRN PRN Reason: Nausea And Vomiting Oxybutynin Chloride (Ditropan) 10 mg PO BIDP PRN PRN Reason: bladder spasms Last Admin: 08/01/17 21:02 Dose: 10 mg Bimatoprost [Lumigan (] Ophth Dps) 1 dose OU HS [facility] Last Admin: 08/01/17 21:09 Dose: 1 dose Phenytoin Sodium (Dilantin) 100 mg PO DAILY@0800,1200 [facility] Last Admin: 08/02/17 07:51 Dose: 100 mg Phenytoin Sodium (Dilantin) 200 mg PO HS [facility] Last Admin: 08/01/17 21:01 Dose: 200 mg Pneumococcal Polyvalent Vaccine (Pneumovax 23) 0.5 ml IM .ONCE ONE Stop: 08/02/17 10:01 Medical - PN: A/P - Time Spent With Patient Total time spent is greater than 50% in coordination of care (as documented) at patient's floor/unit and/or counseling patient: (1) Metabolic acidosis Status: Acute Current Visit: Yes (2) Delusions Status: Acute Current Visit: Yes (3) Bacterial cystitis Status: Acute Current Visit: Yes (4) Rhabdomyolysis Status: Acute Current Visit: Yes (5) Schizophrenia Problem details: Unspec/Chronic Status: Chronic Current Visit: Yes - Narrative A/P Narrative: 66-year-old female with a history of schizophrenia, depression, seizure disorder , on phenytoin, presented with confusion and weakness. She has delusions, and subsequently has metabolic acidosis and rhabdomyolysis likely related to prolonged inactivity and starvation. Anion gap metabolic acidosis. Improving, though still present. Suspect may be starvation ketosis with a metabolic acidosis, as no other etiology has been found. Plan: Continue with hydration, replete electrolytes as needed. Rhabdomyolysis, mild. Improving. Likely secondary to being in bed most of the time for the last week or more. Plan: Continue IV fluids and hydration, follow CPK, suspect will normalize by Wed. Starvation ketosis. Ketones in the urine, no evidence of DKA. Suspect this is due to decreased food intake over the last week or so. Plan: Continue to reintroduce diet, follow electrolytes. Will keep on telemetry due to anticipated flux in electrolytes. Schizophrenia with delusions. Improved after resuming medications. At admission, patient had delusions of Medicare sending people into her home to keep her from going to the hospital. Also delusions and complaints of Medicare not covering her medications that she needs. This latter may stem from the need to change some medications for formulary reasons when she retired in insurance changed earlier this year. UTI may have triggered the current episode. No evidence of intent for self-harm or for harm of others. Plan: Resumed antipsychotic medications. Urinary tract infection. His may have contributed to her decline in function and development of delusions. Cefuroxime causes diarrhea, but is tolerating ceftriaxone. Plan: Continue ceftriaxone, follow-up urine culture. Seizure disorder. Cannot find details in initial review of chart. Has been on phenytoin at least as far back as 2014. No reported seizures. Phenytoin level subtherapeutic at presentation. Plan: Resume phenytoin at home dose. Medical - PN: Qual - Stroke Symptom Onset Unknown: No - VTE Deep Vein Thrombosis/Pulmonary Embolism Present on Admission: No
[2017-08-02] MEDS: busPIRone 5 MG TABLET PO SCH ×3 (09:50→21:21)
[2017-08-02] MEDS: DULoxetine 30 MG CAPSULE PO SCH (09:51)
[2017-08-02] MEDS: OLANZapine 5 MG TABLET PO SCH (09:51)
[2017-08-02] MEDS: ENOXAPARIN 40 MG/0.4 ML SYRINGE SQ SCH (09:51)
[2017-08-02] MEDS: cefTRIAXone 1 GM VIAL IV SCH (09:52)
[2017-08-02] MEDS ORDERED: FLU VACC QS2017-18 36MOS UP/PF 60 MCG/0.5 ML SYRINGE IM ONE (10:00)
[2017-08-02] MEDS ORDERED: PNEUMOCOCCAL 23-VAL P-SAC VAC 0.5 ML VIAL IM ONE (10:00)
[2017-08-02] MEDS ORDERED: cefTRIAXone 1 GM in DEXTROSE 5% IN WATER 50 ML IV SCH (14:00)
[2017-08-02 17:38] LABS: Blood Urea Nitrogen 11 mg/dl (8-23); Magnesium 1.9 mg/dL (1.6-2.5)
[2017-08-02] MEDS: NEUTRA PHOS 1 PACKET PO SCH (21:20)
[2017-08-02] MEDS: NORTRIPTYLINE 25 MG CAPSULE PO SCH (21:21)
[2017-08-02] MEDS: ACETAMINOPHEN 325 MG TABLET PO PRN (21:21)
[2017-08-02] MEDS: BIMATOPROST OU SCH (21:24)
[2017-08-03] MEDS: LACTATED RINGERS 1,000 ML IV SCH ×2 (00:08→04:41)
[2017-08-03 06:15] LABS: ALT/SGPT 17 U/l (0-40); Albumin/Globulin Ratio 1.7 (1.0-2.3); Alkaline Phosphatase 108 U/L (39-117); Bilirubin,Direct < 0.2 mg/dL (0.0-0.3); Blood Urea Nitrogen 10 mg/dl (8-23); Gamma Glutamyl Transpeptidase 63 U/L (5-36); Magnesium 1.6 mg/dL (1.6-2.5); Uric Acid 6.8 mg/dL (2.5-8.0)
[2017-08-03] MEDS ORDERED: POTASSIUM CHLORIDE 20 MEQ PACKET PO ONE ×2 (06:24→17:39)
[2017-08-03] MEDS: ENOXAPARIN 40 MG/0.4 ML SYRINGE SQ SCH (08:47)
[2017-08-03] MEDS: NEUTRA PHOS 1 PACKET PO SCH (08:47)
[2017-08-03] MEDS: cefTRIAXone 1 GM VIAL IV SCH (08:48)
[2017-08-03] MEDS: OLANZapine 5 MG TABLET PO SCH (08:48)
[2017-08-03] MEDS: PHENYTOIN SOD 100 MG CAPSULE PO SCH ×2 (08:48→14:20)
[2017-08-03] MEDS: CARVEDILOL 12.5 MG TABLET PO SCH ×2 (08:49→17:55)
[2017-08-03] MEDS: busPIRone 5 MG TABLET PO SCH ×2 (08:49→17:55)
[2017-08-03] MEDS: DULoxetine 30 MG CAPSULE PO SCH (08:51)
[2017-08-03] MEDS: ACETAMINOPHEN 325 MG TABLET PO PRN (08:59)
--- NOTE | 2017-08-03 14:02 | Discharge Summary ---
Medical - DS: Prov Patient information: Note initiated : 08/03/17 at 1:58 pm Service Date, if different from initiated Date: [] Patient: Bibi Murrell 66 y/o F admitted on 08/01/17 for Altered LOC/Metabolic Acidosis, Bacterial Cystitis. Chief Complaint: [] Date of admission: 08/01/17 16:23 Discharge date: 08/03/17 Primary care physician: Cali Herron Admitting clinician: Liz Garcia Consults: 08/01/17 14:09 Consult to Physician [CONS] Stat Comment: Consulting Provider: Liz Garcia Reason For Exam: Physician to Consult Discharging clinician: Anamaria Lerma Medical - DS: Meds - Discharge Medications Prescriptions: Nitrofurantoin Monohyd/M-Cryst [Macrobid 100 mg Capsule] 100 mg PO BID #14 cap Active and Home Medications: Home Medications buspirone 5 mg tablet 5 mg PO TID tab 03/26/15 [History Confirmed 08/01/17 Last Taken Unknown] orphenadrine citrate ER 100 mg tablet,extended release 1 - 3 tab PO DAILYP PRN tab 03/26/15 [History Confirmed 08/01/17 Last Taken Unknown] bimatoprost 0.01 % eye drops 1 drp OU HS ml 05/23/15 [History Confirmed Last Taken Unknown] Acetaminophen W/Codeine #3 [Tylenol #3] 1 tab PO Q6HP PRN #20 tab 05/28/16 [Rx Confirmed 08/01/17 Last Taken Unknown] albuterol sulfate HFA 90 mcg/actuation aerosol inhaler 2 puff INHALATION Q6H PRN #18 g 08/04/16 [Rx Confirmed 08/01/17 Last Taken Unknown] nortriptyline 25 mg capsule 25 mg PO QHS #30 cap 08/11/16 [Rx Confirmed Last Taken Unknown] meclizine 25 mg tablet 25 mg PO QDAY PRN #30 tab 10/27/16 [Rx Confirmed Last Taken Unknown] gemfibrozil 600 mg tablet 600 mg PO BID #60 tab 11/29/16 [Rx Confirmed 08/01/17 Last Taken Unknown] olanzapine 10 mg tablet 10 mg PO QDAY #30 tab 12/23/16 [Rx Confirmed 08/01/17 Last Taken Unknown] duloxetine 60 mg capsule,delayed release 60 mg PO QDAY #90 cap 04/08/17 [Rx Confirmed 08/01/17 Last Taken Unknown] oxybutynin chloride 5 mg tablet 10 mg PO BID PRN #120 tab 05/12/17 [Rx Confirmed 08/01/17 Last Taken Unknown] carvedilol 12.5 mg tablet 12.5 mg PO BID #60 tab 06/20/17 [Rx Confirmed Last Taken Unknown] omeprazole 20 mg capsule,delayed release 20 mg PO ACB cap 07/07/17 [History Confirmed 08/01/17 Last Taken Unknown] Armodafinil [Nuvigil] 150 mg PO BID@0400,1100 08/01/17 [History Confirmed Last Taken Unknown] Nadolol [Corgard] 80 mg PO DAILY 08/01/17 [History Confirmed 08/01/17 Last Taken Unknown] Phenytoin Sod [Dilantin] 100 mg PO DAILY@0800,1200 08/01/17 [History Confirmed 08/01/17 Last Taken Unknown] Phenytoin Sodium Extended [Phenytek] 200 mg PO HS 08/01/17 [History Confirmed Last Taken Unknown] Medical - DS: Hosp Hospital course: Ms. Murrell is a 66 year old F with a history of schizophrenia, glaucoma, seizures who is brought in by her family because of weakness and confusion. History is obtained in interviewing the patient as well as her family, reviewing records in the chart. The morning of admission the patient called one of her brothers. She seemed confused. Another brother, his as well as his sister saw the patient at her home. She was confused and weak. She had some complaints of people being in her home. She gave a history of being told that she had to be on "bed rest" . Paramedics were called and she was eventually brought to the hospital. According to the patient she has been at home in bed for at least a week. She states that there were people in her house that told her that she had to be at bed rest. She noted that [place], and the people had been sent by Medicare to keep her from going to the hospital. Though she reports that was "not working" and she was getting weaker. During the week that she was in bed, she is apparently up using the commode though is complaining of being very weak and difficult to stand from the commode. She's had minimal water or oral intake during that time, and has stopped taking her medicines. She states that she is filled a pill container (pharmacy sized pill bottle) with water and drank approximately 2 of those a day. She states she may have been in bed for longer than a week. At one point she apparently was on the floor, had to scoot herself to the stairs, to help pull herself to a standing position. Patient has a constant concern of Medicare changing around her medications and not paying for some and that she was then told to stop taking all of them. This seems to plate into her perception that Medicare and sent people to her home to install motion detectors and to care for her there to keep her from coming to the hospital. In discussing with her family, one of them had a phone conversation with her a few days ago and she seemed her normal self. The last visited her about a week ago apparently. In reviewing clinic notes in March she was seen by primary care, at which point some of her medicines had to be changed due to her chcf and change in insurance policies and having to find new formulary alternatives. The emergency department, she was acidotic with an anion gap metabolic acidosis though a normal lactate. She also had rhabdomyolysis with CPK in the 2600 range. She is being admitted from the hospital for further evaluation and treatment of metabolic acidosis and rhabdomyolysis. The patient was treated with IV fluids and replacement of electrolytes, She responded to treatment very well, at the time of discharge today her ck was improved significantly and she was able to resume oral intake. The patient behavior was also much improved, after resumption of her home medications. she has h/o seizure disorder and takes dilantin for same, her level was subtherapeutic on admission, I expect this to normalize once she is more compliant. The patient was offered placement to rehab which she declined, she was offered home health and home PT which was also declined, the patient is a hoarder and does not want anyone to come in. I had [facility] review her case to see if she would meet criteria or warrant inpatient hospitalization, however after evaluation the patient did not meet criteria for admission. The patients case was reviewed with family who are concerned with the patients living condition, but are aware this is a chr issue for her, we offered adult protective services which was declined at this time. The patient at baseline is stable, and it seems that her acute change in mental status was due to changes done to her chr medication as she switched from work place insurance to medicare. The patient also lost her brother which may have exacerbated the issue. The patient UA is suggestive of UTI, klebsiella, was given IV Rocephin in hospital, she apparently is allergic to many antibiotics. She will be discharged on macrobid 100mg bid. x 7 days At this time however the patient is hemodynamically stable, tolerating po diet well, she is weak but does not wish any intervention. She is willing to to go outpatient PT which will be ordered. The patients family has been advised to monitor her closely Discharge diagnosis: Rhabdomyolysis, Starvation Ketosis, Delusions/ paranoia. - Time Spent with Patient Total time spent providing and/or coordinating discharge services: Greater than 30 minutes Medical - DS: Exam - Constitutional Vitals: Vital Signs Temp Pulse Pulse Resp BP BP Pulse Ox 08/03/17 12:00 99.6 F H 89 18 108/60 96 08/03/17 08:00 99.8 F H 79 18 112/98 96 08/03/17 04:00 98.8 F 81 16 128/58 97 08/03/17 00:00 98.8 F 87 16 115/49 95 08/02/17 20:00 98.4 F 84 16 126/47 98 08/02/17 17:08 100.0 F H 81 16 119/53 100 08/02/17 17:05 100.0 F H 16 119/53 98 Intake and Output 08/02/17 08/03/17 08/03/17 21:59 05:59 13:59 Intake Total 2893 / 2893 1300 / 1300 630 / 630 Output Total 251 / 251 Balance 2642 / 2642 1300 / 1300 630 / 630 Intake: IV 1992 1000 / 1000 Lactated Ringers 1,000 ml @ 150 1992 1000 / 1000 mls/hr IV .[id number] [facility] Rx#: [id number] Oral 900 / 900 300 / 300 630 / 630 Output: Void Amount 250 / 250 # of times incontinent of urine Other: Meal Nourishment/Supplement Lunch Percent of Meal Consumed 100% 75% Feeding Ability Assist with Tray Set Up # Voids 1 1 # Bowel Movements 1 1 Weight 187 lb Additional comments: Constitutional; Afebrile, cooperative, alert, not in distress. Eyes- No icterus, , No periorbital swelling Ears- Ext ear normal, hearing normal to conversation. Neck- Midline trachea, supple Respiratory system: Air Entry equal on both sides, No crackles or wheezing, no rhonchi. CVS- Rate rhythm regular, S1,S2 heard, no gallop, no rub. Abdomen- Soft nontender abdomen, no organomegaly, no tenderness, no guarding or rigidity, [employer]- AOOx3, moving all extremities, no gross focal deficit noted. Medical - DS: Data Labs on day of discharge: Labs from last 24 hours 08/03/17 08/03/17 08/02/17 03:36 03:36 16:28 Sodium 141 142 Potassium 3.5 3.4 Chloride 104 104 Carbon Dioxide 22 22 Anion Gap 15.0 16.0 BUN 10 11 Creatinine 0.5 L 0.8 GFR Calculation 102 77 Glucose 170 H 156 H Uric Acid 6.8 Calcium 8.1 L 8.9 Phosphorus 2.1 L 1.8 L Magnesium 1.6 1.9 Total Bilirubin 0.2 Direct Bilirubin < 0.2 GGT 63 H AST 27 ALT 17 Alkaline Phosphatase 108 Lactate Dehydrogenase 218 Total Creatine Kinase 365 H Total Protein 4.8 L Albumin 3.0 L Globulin 1.8 L Albumin/Globulin Ratio 1.7 Triglycerides 186 H Medical - DS: A/P - Patient/Caregiver Discharge Instructions Activity: increase activity as tolerated Diet: Regular Diet Additional Instructions: Take Your medications as prescribed by your Primary care doctor Use pill box or pill bubbles to help manage your prescription. If you are confused about your medications call your doctors office You also have UTI and need antibiotics, I have prescribed some make sure you take those as prescribed. Go to the ER if any worsening of condition, chest pain, shortness of breath and of fever or any other concerning symptom. Follow up with your PCP in 1 week. Prescriptions: Nitrofurantoin Monohyd/M-Cryst [Macrobid 100 mg Capsule] 100 mg PO BID #14 cap - Follow up Plan Follow up with: Cali Herron MD [Primary Care Provider] - 08/10/17 11:15 am Disposition: Home, Self-Care Prognosis: Fair Rehab Potential: Fair I certify that the patient requires SNF services: No Overall status at discharge: patient is progressing back to baseline Medical - DS: Qual - VTE Deep Vein Thrombosis/Pulmonary Embolism Present on Admission: No
== END 2017-08-03 19:15 | disposition home or self-care (01) | DRG 558 ==
LOC: ED 09:49 → ICU 16:23
PROVIDERS: ADMIT Internal Medicine; ATTEND Internal Medicine

== ENCOUNTER 2021-03-07 20:42 | Inpatient (IN) ==
--- NOTE | 2021-03-07 21:25 | Emergency Department Note ---
Altered Mental Status HPI General Chief Complaint: Altered Mental Status Stated Complaint: altered mental status Time Seen by Provider: 03/07/21 21:17 Source: EMS Mode of arrival: EMS Limitations: altered mental status History of Present Illness HPI Narrative: 70-year-old female arrives by EMS patient was last seen last night by her sister. Sister felt that she was acting strange last night. Today her brother checked on her and patient was on the toilet, and leaning her neck to the left. Patient states she may have fallen. Patient is sleepy is confused. She is oriented to self only. No additional history is available at this time. Patient does have a history of diabetes hypertension depression schizophrenia. No prior history of stroke or heart attack per the brothers who give some history. Related Data Previous Rx's Medication Instructions Recorded albuterol sulfate 90 mcg/actuation 2 puff INHALATION Q6H PRN #18 g 08/04/16 aerosol inhaler TRUEplus Lancets 28 gauge #400 each NS 09/26/17 True Metrix Glucose Meter #1 each NS 09/26/17 metformin 850 mg tablet 850 mg PO BID #180 tab 11/22/17 sitagliptin 100 mg tablet 100 mg PO QDAY #90 tab 11/28/17 phenytoin sodium extended 100 mg See Rx Instructions PO .COMPLEX 12/01/17 capsule #60 cap duloxetine 60 mg capsule,delayed 60 mg PO QDAY #30 cap 12/21/17 release gemfibrozil 600 mg tablet 600 mg PO BID #60 tab 12/21/17 olanzapine 10 mg tablet 10 mg PO QDAY #30 tab 12/21/17 oxybutynin chloride 10 mg 10 mg PO QDAY #30 tab 01/23/18 tablet,extended release 24 hr omeprazole 40 mg capsule,delayed 40 mg PO ACB #90 cap 03/27/18 release alendronate 70 mg tablet 70 mg PO QWEEK #12 tab 03/29/18 latanoprost 0.005 % eye drops 1 drp OPHTHALMIC .COMPLEX #7.5 ml 03/29/18 True Metrix Glucose Test Strip #100 each NS 05/29/18 carvedilol 12.5 mg tablet 12.5 mg PO BID #60 tab 07/06/18 dextromethorphan-guaifenesin 30 1 tab PO Q12H #20 tab 08/28/18 mg-600 mg tablet extended hr buspirone 5 mg tablet 5 mg PO TID #90 tab 09/07/18 nortriptyline 25 mg capsule 25 mg PO QHS #30 cap 09/07/18 meclizine 12.5 mg PO BID PRN #10 tab 02/07/21 nitrofurantoin monohyd/m-cryst 100 mg PO BID #14 cap 02/07/21 [Macrobid] Allergies Allergy/AdvReac Type Severity Reaction Status Date / Time azithromycin Allergy Unknown Unknown Verified 02/17/21 18:34 Penicillins Allergy Unknown Hives Verified 02/17/21 18:34 cefuroxime [From Ceftin] Allergy Diarrhea Verified 02/17/21 18:34 ciprofloxacin [From Cipro] Allergy Hives Verified 02/17/21 18:34 sulfamethoxazole Allergy Hives Verified 02/17/21 18:34 [From Septra] trimethoprim [From Septra] Allergy Hives Verified 02/17/21 18:34 tetracycline [Tetracycline] AdvReac Unknown Unknown Verified 02/17/21 18:34 Review of Systems ROS ROS Narrative: Unobtainable due to altered mental status PFSH Narrative Patient History Narrative: Narrative: Medical/Surgical/Family History All Active Problems (Updated 03/08/21 @ 00:40 by Raheem Germain MD) Acute dehydration (Acute) Acute UTI (urinary tract infection) (Acute) Abrasion of ankle without infection (Acute) Pressure sore on ankle (Acute) Diabetic keto-acidosis (Acute) Acute alteration in mental status (Acute) Hypokalemia (Acute) Metabolic acidosis (Acute) Diabetes mellitus type 2 in nonobese (Chronic) Excessive cerumen in both ear canals (Acute) Mental status change (Acute) Confusion (Acute) Paranoid ideation (Acute) Bacterial cystitis (Acute) Rhabdomyolysis (Acute) Metabolic acidosis (Acute) Delusions (Acute) GERD (gastroesophageal reflux disease) (Chronic) Diabetes mellitus type 2 in nonobese (Chronic) Pyelonephritis (Acute) Decubitus Ulcer (Acute) Paronychia of finger of left hand (Acute) Diarrhea of presumed infectious origin (Chronic) Decubitus Ulcer (Acute) Diarrhea due to drug (Acute) Trigger finger, acquired (Chronic) Schizophrenia (Chronic) Menopausal syndrome (Chronic) Hypertension, essential (Chronic) Hyperlipemia (Chronic) Depressive disorder (Chronic) Medical History (Updated 03/08/21 @ 00:40 by Raheem Germain MD) Acute bronchitis Decubitus ulcer of buttock, stage 2 Depressive disorder recurrent, recent grief reaction from brother's Hyperlipemia Hypertension, essential Impacted cerumen Menopausal syndrome Menopausal-Postmenopausal Disorder NOS Neck sprain and strain Postmenopausal related mood disorder Repetitive strain injury of lower back Schizophrenia Unspec/Chronic Trigger finger, acquired Type 2 diabetes mellitus Surgical History History of colonoscopy (04/04/18) No history of previous surgery Family History Unknown Diabetes mellitus Cardiac disease Malignant neoplasm colon cancer Presence of cardiac pacemaker Father Cerebrovascular accident, Onset Age: 80 Malignant neoplasm of colon Family/Other Malignant neoplasm of colon uncle Social History Smoking Status: Never smoker Alcohol Intake Frequency: holiday/special occasion only Exam Narrative Narrative: \ Constitutional: Awake alert no acute distress well-nourished well-developed HEENT: Normocephalic, atraumatic PERRLA, EOMI, oral mucosa moist, pharynx clear, Neck: Supple, no lymphadenopathy, no JVD, mild diffuse paracervical tenderness Lungs: Breathing unlabored, lungs clear Cardiac: Regular rate and rhythm, normal distal pulses, GI: Soft nontender nondistended no guarding no rebound Musculoskeletal: No obvious deformities or, Neuro: Sleepy but arousable oriented to name only. Will hold both of her arms above without being supported and not hitting the bed. Does not keep either of her legs above the bed without being supported. Psychiatric: Unable to assess Skin: Warm dry no rash, cap refill less than 2 seconds General Limitations: altered mental status Course Consultations Consultation #1: Discussed with Dr. Pineda who agrees to admit patient. Time: 00:25 Vital Signs Vital signs: Vital Signs Pulse Rate 100 H 03/07/21 20:46 Blood Pressure 145/58 03/07/21 20:46 Pulse Oximetry (%) 99 03/07/21 20:46 Temperature 98.4 F 03/07/21 20:52 Pulse Rate 96 H 03/07/21 23:34 Respiratory Rate 16 03/08/21 00:16 Blood Pressure 145/63 03/08/21 00:16 Pulse Oximetry (%) 100 03/07/21 23:34 MDM MDM Narrative Medical decision making narrative: 70-year-old female was found by her brothers this evening confused on the toilet. Patient has history of diabetes. Also has some psychiatric history including schizophrenia and depression. Patient states she may have fallen but this is unclear as she was confused. CT of the brain and cervical spine showed no acute abnormality chest x-ray was clear basic labs came back showing a normal CBC metabolic profile sodium 146 potassium 2.9 chloride 106 bicarb 9 BUN 23 creatinine 0.9 glucose 192 with an anion gap of 31 beta hydroxybutyrate was elevated 6.25. Suspect a component acute diabetic ketoacidosis although glucose only 192 so possibility of starvation ketosis is also a .. ABG showed pH 7.36 PCO2 23 PO2 101 bicarb of 13. Urine dip showed specific gravity 1.025+ for ketones negative for nitrite negative leukocyte esterase negative glucose. Patient given IV fluids. Started on D5 normal saline with 20 mEq of potassium . Patient will be admitted for further evaluation treatment. Case discussed with hospitalist Dr. Pineda who agrees to admit patient. Placed on sliding scale insulin rather than insulin drip at this time as it is not clear that the ketoacidosis is entirely due to diabetes.. Lab Data Result diagrams: 03/07/21 21:26 03/07/21 21:25 Labs: Lab Results 03/07/21 03/07/21 03/07/21 Range/Units 21:25 21:25 21:25 WBC (4.5-11.0) K/mcL RBC (4.00-5.20) M/mcL Hgb (12.0-15.0) g/dL Hct (36.0-48.0) % MCV (80.0-100.0) fL MCH (26.0-34.0) pg MCHC (31.0-36.0) g/dL RDW (11.5-14.5) % Plt Count (140-440) K/mcL MPV (7.4-10.4) fL Seg Neutrophils % (38-78) % Band Neutrophils % (0-10) % Lymphocytes % (15-49) % Monocytes % (Manual) (1-12) % Platelet Estimate (Normal) RBC Morphology (Normal) Sodium 146 H (133-145) mmol/L Potassium 2.9 L* (3.3-5.1) mmol/L Chloride 106 (96-108) mmol/L Carbon Dioxide 9 L* (22-30) mmol/L Anion Gap 31.0 H (8.0-16.0) BUN 23 (8-23) mg/dL Creatinine 0.9 (0.6-1.1) mg/dL POC Creatinine 0.5 L (0.6-1.2) mg/dL GFR Calculation 65 Glucose 192 H (70-105) mg/dL Calcium 10.3 (8.6-10.4) mg/dL Total Bilirubin 0.4 (0.1-1.0) mg/dL AST 28 (<32) U/L ALT 15 (<40) U/L Alkaline Phosphatase 104 (39-117) U/L Total Creatine Kinase 626 H (24-170) U/L Troponin T < 0.01 (<0.03) ng/mL Total Protein 6.8 (5.9-8.4) gm/dL Albumin 4.7 (3.2-5.2) gm/dL Globulin 2.1 L (2.2-3.7) gm/dL Albumin/Globulin Ratio 2.2 (1.0-2.3) Beta-Hydroxybutyrate (<0.27) mmol/L Phenytoin ug/mL Ethyl Alcohol (<0.010) gm/dL 03/07/21 03/07/21 03/07/21 Range/Units 21:25 21:26 21:26 WBC 7.8 (4.5-11.0) K/mcL RBC 3.71 L (4.00-5.20) M/mcL Hgb 12.7 (12.0-15.0) g/dL Hct 36.6 (36.0-48.0) % MCV 98.7 (80.0-100.0) fL MCH 34.2 H (26.0-34.0) pg MCHC 34.7 (31.0-36.0) g/dL RDW 14.3 (11.5-14.5) % Plt Count 168 (140-440) K/mcL MPV 10.3 (7.4-10.4) fL Seg Neutrophils % 79 H (38-78) % Band Neutrophils % 2 (0-10) % Lymphocytes % 10 L (15-49) % Monocytes % (Manual) 9 (1-12) % Platelet Estimate Normal (Normal) RBC Morphology Normal (Normal) Sodium (133-145) mmol/L Potassium (3.3-5.1) mmol/L Chloride (96-108) mmol/L Carbon Dioxide (22-30) mmol/L Anion Gap (8.0-16.0) BUN (8-23) mg/dL Creatinine (0.6-1.1) mg/dL POC Creatinine (0.6-1.2) mg/dL GFR Calculation Glucose (70-105) mg/dL Calcium (8.6-10.4) mg/dL Total Bilirubin (0.1-1.0) mg/dL AST (<32) U/L ALT (<40) U/L Alkaline Phosphatase (39-117) U/L Total Creatine Kinase (24-170) U/L Troponin T (<0.03) ng/mL Total Protein (5.9-8.4) gm/dL Albumin (3.2-5.2) gm/dL Globulin (2.2-3.7) gm/dL Albumin/Globulin Ratio (1.0-2.3) Beta-Hydroxybutyrate (<0.27) mmol/L Phenytoin 1.1 ug/mL Ethyl Alcohol < 0.010 (<0.010) gm/dL 03/07/21 Range/Units 23:02 WBC (4.5-11.0) K/mcL RBC (4.00-5.20) M/mcL Hgb (12.0-15.0) g/dL Hct (36.0-48.0) % MCV (80.0-100.0) fL MCH (26.0-34.0) pg MCHC (31.0-36.0) g/dL RDW (11.5-14.5) % Plt Count (140-440) K/mcL MPV (7.4-10.4) fL Seg Neutrophils % (38-78) % Band Neutrophils % (0-10) % Lymphocytes % (15-49) % Monocytes % (Manual) (1-12) % Platelet Estimate (Normal) RBC Morphology (Normal) Sodium (133-145) mmol/L Potassium (3.3-5.1) mmol/L Chloride (96-108) mmol/L Carbon Dioxide (22-30) mmol/L Anion Gap (8.0-16.0) BUN (8-23) mg/dL Creatinine (0.6-1.1) mg/dL POC Creatinine (0.6-1.2) mg/dL GFR Calculation Glucose (70-105) mg/dL Calcium (8.6-10.4) mg/dL Total Bilirubin (0.1-1.0) mg/dL AST (<32) U/L ALT (<40) U/L Alkaline Phosphatase (39-117) U/L Total Creatine Kinase (24-170) U/L Troponin T (<0.03) ng/mL Total Protein (5.9-8.4) gm/dL Albumin (3.2-5.2) gm/dL Globulin (2.2-3.7) gm/dL Albumin/Globulin Ratio (1.0-2.3) Beta-Hydroxybutyrate 6.25 H (<0.27) mmol/L Phenytoin ug/mL Ethyl Alcohol (<0.010) gm/dL ED POC Tests ED POC Tests: RADHA - SARS Antigen Negative Radiology Data Radiology results reviewed: Yes I reviewed the patient's radiology results. Radiology results narrative: CT of the head without contrast shows no acute infarct hemorrhage or mass-effect per radiology. CT of the cervical spine. Allergy shows no acute fracture or subluxation, there is multilevel degenerative disc disease, C4-5 through C6-7 annular bulges with osteophyte complex with mild spinal stenosis EKG Data EKG #1: EKG attestation: Yes I reviewed and interpreted this EKG. and Yes There are no EKG findings of acute coronary syndrome EKG results narrative: EKG performed at 2127 shows sinus rhythm rate of [address] changes PACs present CC TIME Critical Care Time Critical Care Time: Yes Total Critical Care Time: 35 Attestation: 35 minutes of critical care performed including history physical interpretation of labs consultation with hospitalist. Without intervention patient could have decompensation with first further worsening of metabolic derangements and potentially . Discharge Plan Patient/Caregiver Discharge Instructions Pt seen by INTERVENTIONAL TECH/PA only: No Clinical Impression: Diabetic keto-acidosis, Acute alteration in mental status, Hypokalemia, Metabolic acidosis Patient Disposition: Xfer As Inpt ([facility]) Condition: Serious Follow up with: Cali Herron MD [Primary Care Provider] - Prescriptions: No Action albuterol sulfate 90 mcg/actuation HFA aerosol inhaler 2 puff INHALATION Q6H PRN (Reason: for cough wheeze or shortness of breath) Qty: 18 RF: 12 (DME) lancets [TRUEplus Lancets] 28 gauge misc See Dose Instructions .ROUTE .MEDSUPPLY Qty: 400 RF: 3 (DME) blood-glucose meter [True Metrix Glucose Meter] misc See Dose Instructions .ROUTE .MEDSUPPLY Qty: 1 RF: 0 metformin 850 mg tablet 850 mg PO BID Qty: 180 RF: 3 Hold Instructions: stomach problem recheck on the at her appointment phenytoin sodium extended 100 mg capsule See Rx Instructions PO .COMPLEX Qty: 60 RF: 12 duloxetine 60 mg capsule,delayed release(DR/EC) 60 mg PO QDAY Qty: 30 RF: 12 gemfibrozil 600 mg tablet 600 mg PO BID Qty: 60 RF: 12 olanzapine 10 mg tablet 10 mg PO QDAY Qty: 30 RF: 12 oxybutynin chloride 10 mg tablet extended release 24hr 10 mg PO QDAY Qty: 30 RF: 12 omeprazole 40 mg capsule,delayed release(DR/EC) 40 mg PO ACB Qty: 90 RF: 3 alendronate [Fosamax] 70 mg tablet 70 mg PO QWEEK Qty: 12 RF: 3 latanoprost 0.005 % drops 1 drp OPHTHALMIC .COMPLEX Qty: 7.5 RF: 12 carvedilol 12.5 mg tablet 12.5 mg PO BID Qty: 60 RF: 12 buspirone 5 mg tablet 5 mg PO TID Qty: 90 RF: 12 nortriptyline 25 mg capsule 25 mg PO QHS Qty: 30 RF: 12 sitagliptin [Januvia] 100 mg tablet 100 mg PO QDAY Qty: 90 RF: 3 (DME) blood sugar diagnostic [True Metrix Glucose Test Strip] strip See Dose Instructions .ROUTE .MEDSUPPLY Qty: 100 RF: 3 dextromethorphan-guaifenesin [Mucinex DM] 30-600 mg tablet extended release 12 hr 1 tab PO Q12H Qty: 20 RF: 0 nitrofurantoin monohyd/m-cryst [Macrobid] 100 mg capsule 100 mg PO BID Qty: 14 RF: 0 meclizine 12.5 mg tablet 12.5 mg PO BID PRN (Reason: dizziness) Qty: 10 RF: 0
[2021-03-07] MEDS ORDERED: 0.9 % SODIUM CHLORIDE 1,000 ML IV SCH (21:30)
[2021-03-07 21:32] LABS: POC Creatinine 0.5 mg/dL (0.6-1.2)
[2021-03-07 22:24] LABS: Hematocrit 36.6 % (36.0-48.0); Hemoglobin 12.7 g/dL (12.0-15.0); Mean Cell Volume 98.7 fL (80.0-100.0); Mean Corpuscular HGB Conc 34.7 g/dL (31.0-36.0); Mean Platelet Volume 10.3 fL (7.4-10.4); Platelet Count 168 K/mcL (140-440); RBC 3.71 M/mcL (4.00-5.20); Red Cell Distribution Width 14.3 % (11.5-14.5); WBC 7.8 K/mcL (4.5-11.0)
[2021-03-07 22:34] LABS: Creatine Kinase 626 U/L (24-170)
[2021-03-07 22:36] LABS: Dilantin Test 1.1 ug/mL
[2021-03-07 22:38] LABS: Alcohol, Blood < 10.0 mg/dL; Alcohol,Blood < 0.010 gm/dL (<0.010)
[2021-03-07 22:43] LABS: ALT/SGPT 15 U/L (<40); AST/SGOT 28 U/L (<32); Albumin 4.7 gm/dL (3.2-5.2); Albumin/Globulin Ratio 2.2 (1.0-2.3); Alkaline Phosphatase 104 U/L (39-117); Bilirubin,Total 0.4 mg/dL (0.1-1.0); Blood Urea Nitrogen 23 mg/dL (8-23); Calcium 10.3 mg/dL (8.6-10.4); Carbon Dioxide 9 mmol/L (22-30); Chloride 106 mmol/L (96-108); Globulin 2.1 gm/dL (2.2-3.7); Glomerular Filtration Rate 65; Glucose 192 mg/dL (70-105)
[2021-03-07] MEDS ORDERED: 0.9 % SODIUM CHLORIDE 1,000 ML IV ONE (22:58)
[2021-03-07 23:15] LABS: Band Neutrophils % 2 % (0-10); Lymphocytes % 10 % (15-49); Monocytes % (Manual) 9 % (1-12); Platelet Estimate NORMAL (Normal); RBC Morphology NORMAL (Normal); Segmented Neutrophils % 79 % (38-78)
[2021-03-07] MEDS ORDERED: SODIUM BICARBONATE 50 MEQ/50 ML VIAL IV ONE (23:24)
[2021-03-08] MEDS ORDERED: DEXTROSE 5%-NS W/20MEQ KCL 1,000 ML IV SCH (00:15)
[2021-03-08] MEDS ORDERED: DEXTROSE 50% 50 ML VIAL IV PRN ×2 (00:37→01:04)
[2021-03-08] MEDS ORDERED: DEXTROSE 31 GM ORAL.SUSP PO PRN ×2 (00:37→01:04)
[2021-03-08] MEDS ORDERED: POTASSIUM CHLORIDE 40 MEQ in DEXTROSE 5% IN WATER 500 ML IV ONE ×2 (01:23→17:30)
[2021-03-08 01:58] LABS: Appearance,Urine CLEAR (Clear); Bilirubin,Urine Negative (Negative); Color,Urine YELLOW; Culture Indicated,Urine No; Glucose,Urine (UA) Negative (Negative); Ketones,Urine 80 mg/dL (Negative); Leukocyte Esterase,Urine Negative /ug (Negative); Mucus,Urine FEW /hpf; Nitrate,Urine Negative (Negative); Protein,Urine 30 mg/dL (Negative); Specific Gravity,Urine 1.014 (1.000-1.035); Urine Blood Negative (Negative); Urine RBC < 1 /hpf (0-3); Urine Squamous Epithelial Cell 0 /hpf (0-4); Urine WBC 1 /hpf (0-4); Urobilinogen,Urine Negative
[2021-03-08] MEDS: INSULIN LISPRO 1 UNIT/0.01 ML UNIT SQ SCH ×9 (02:10→23:51)
[2021-03-08] MEDS ORDERED: POTASSIUM CHLORIDE 20 MEQ/10 ML VIAL IV ONE ×2 (02:11→20:47)
[2021-03-08 05:30] LABS: Basophils # (Auto) 0.01 K/mcL (0.00-0.20); Basophils % (Auto) 0.2 % (0.0-2.0); Eosinophils # (Auto) 0.12 K/mcL (0.00-0.70); Eosinophils % (Auto) 2.3 % (0.0-7.0); Hematocrit 30.7 % (36.0-48.0); Hemoglobin 10.7 g/dL (12.0-15.0); Lymphocytes # (Auto) 1.11 K/mcL (1.50-4.80); Mean Cell Volume 97.2 fL (80.0-100.0); Mean Corpuscular HGB Conc 34.9 g/dL (31.0-36.0); Mean Platelet Volume 10.1 fL (7.4-10.4); Monocytes # (Auto) 0.65 K/mcL (0.10-0.90); Monocytes % (Auto) 12.3 % (1.0-12.0); Neutrophils % (Auto) 64.2 % (38.0-78.0); Platelet Count 125 K/mcL (140-440); RBC 3.16 M/mcL (4.00-5.20); WBC 5.3 K/mcL (4.5-11.0)
[2021-03-08 05:54] LABS: ALT/SGPT 14 U/L (<40); AST/SGOT 28 U/L (<32); Albumin 3.8 gm/dL (3.2-5.2); Albumin/Globulin Ratio 2.2 (1.0-2.3); Alkaline Phosphatase 82 U/L (39-117); Bilirubin,Direct < 0.2 mg/dL (0-0.3); Bilirubin,Total 0.3 mg/dL (0.1-1.0); Blood Urea Nitrogen 13 mg/dL (8-23); Calcium 8.9 mg/dL (8.6-10.4); Carbon Dioxide 18 mmol/L (22-30); Chloride 115 mmol/L (96-108); Globulin 1.7 gm/dL (2.2-3.7); Glomerular Filtration Rate 88; Glucose 208 mg/dL (70-105); Lactate Dehydrogenase 176 U/L (135-225); Phosphorous 1.2 mg/dL (2.5-4.5); Triglycerides 125 mg/dL (<150); Uric Acid 9.8 mg/dL (2.5-8.0)
--- NOTE | 2021-03-08 06:41 | XRay Report ---
CLINICAL INFORMATION: Acute mental status change COMPARISON: 02/07/2021 TECHNIQUE: Portable FINDINGS: The heart size, mediastinum and pulmonary vessels are unremarkable. The lungs are clear. There are no effusions. 3-4 loose bodies in the right glenohumeral joint ranging up to 1 cm appreciated.. IMPRESSION: Normal chest. Loose bodies in the right glenohumeral joint Interpreted and Authenticated by: Zach Tang 03/08/21
--- NOTE | 2021-03-08 07:00 | Cat Scan Report ---
CLINICAL INFORMATION: Obtundation COMPARISON: 02/07/2021 TECHNIQUE: 2.5 mm helical slices were obtained in the skull base to vertex. Following reconstruction, axial reformatted images were reviewed at bone and parenchymal windows. The exam was performed using radiation dose optimization techniques including, but not limited to, automated exposure control, adjustment of the mA and/or kV according to patient size and use of iterative reconstruction technique. FINDINGS: The ventricles, sulci, fissures, and cisterns are symmetrically enlarged patible with mild age-related atrophy. No extra-axial fluid collections are identified. Severe hyperostosis frontalis interna is unchanged. Mild chronic ischemic changes in the cerebral white matter are stable.. There is no evidence of hemorrhage, mass effect, or edema. Bone windows show no osseous abnormality. IMPRESSION: Mild atrophy and minimal chronic ischemic changes in the deep cerebral white matter - stable. No acute finding. Interpreted and Authenticated by: Zach Tang 03/08/21
[2021-03-08] MEDS ORDERED: INSULIN LISPRO 1 UNIT/0.01 ML UNIT SQ SCH (07:30)
[2021-03-08] MEDS ORDERED: MAGNESIUM SULFATE 2 GM/50 ML BAG IV ONE (07:39)
--- NOTE | 2021-03-08 07:39 | Internal Med History&Physical ---
HPI History of Present Illness Patient information: Note initiated : 03/08/21 at 7:31 am Service Date, if different from initiated Date: [] Patient: Bibi Murrell a 70 y/o F admitted on 03/08/21 for altered mental status. Chief Complaint: [] History of present illness: Ms. Murrell is a 70 year old F Was brought in by EMS after she was found on the toilet by her brother for unknown duration but was on the toilet for least 2 hours while this brother was there waiting for her to be done. per EMS She was unable answer questions, she knew where she was at but did not answer any other questions. Sister felt she was acting strange prior to being found. Per sister she has had quite a bit of diarrhea recently as well. No episodes since admission. Unable to gather any history from the patient as she will not answer questions. Patient did have a similar presentation July 2017. At that time his felt related to starvation ketosis. She is found to be anion gap metabolic acidosis. pH is 7.36, positive ketones and blood in urine. Blood glucose only 192. Patient found to be mildly hyponatremic and hypokalemic as well . CT brain and chest x-ray unremarkable. January she had a UTI with Klebsiella and a gram-positive. UA this time unremark able. She was quite agitated overnight and needed one-on-one but is now sleeping Review of Systems: Unable to gather as patient would not answer questions PFS PFS All Active Problems (Updated 03/08/21 @ 00:40 by Raheem Germain MD) Acute dehydration (Acute) Acute UTI (urinary tract infection) (Acute) Abrasion of ankle without infection (Acute) Pressure sore on ankle (Acute) Diabetic keto-acidosis (Acute) Acute alteration in mental status (Acute) Hypokalemia (Acute) Metabolic acidosis (Acute) Diabetes mellitus type 2 in nonobese (Chronic) Excessive cerumen in both ear canals (Acute) Mental status change (Acute) Confusion (Acute) Paranoid ideation (Acute) Bacterial cystitis (Acute) Rhabdomyolysis (Acute) Metabolic acidosis (Acute) Delusions (Acute) GERD (gastroesophageal reflux disease) (Chronic) Diabetes mellitus type 2 in nonobese (Chronic) Pyelonephritis (Acute) Decubitus Ulcer (Acute) Paronychia of finger of left hand (Acute) Diarrhea of presumed infectious origin (Chronic) Decubitus Ulcer (Acute) Diarrhea due to drug (Acute) Trigger finger, acquired (Chronic) Schizophrenia (Chronic) Menopausal syndrome (Chronic) Hypertension, essential (Chronic) Hyperlipemia (Chronic) Depressive disorder (Chronic) Medical History (Updated 03/08/21 @ 00:40 by Raheem Germain MD) Acute bronchitis Decubitus ulcer of buttock, stage 2 Depressive disorder recurrent, recent grief reaction from brother's Hyperlipemia Hypertension, essential Impacted cerumen Menopausal syndrome Menopausal-Postmenopausal Disorder NOS Neck sprain and strain Postmenopausal related mood disorder Repetitive strain injury of lower back Schizophrenia Unspec/Chronic Trigger finger, acquired Type 2 diabetes mellitus Surgical History History of colonoscopy (04/04/18) No history of previous surgery Family History Unknown Diabetes mellitus Cardiac disease Malignant neoplasm colon cancer Presence of cardiac pacemaker Father Cerebrovascular accident, Onset Age: 80 Malignant neoplasm of colon Family/Other Malignant neoplasm of colon uncle Social History (Updated 08/28/18 @ 10:28 by Cali Herron MD) household members: alone lives independently: Yes marital status: single alcohol intake frequency: holiday/special occasion only MEDS/ALLERGIES Home Medications and Allergies Home Medications Medication Instructions Recorded Confirmed Type albuterol sulfate 90 mcg/actuation 2 puff INHALATION Q6H PRN #18 g 08/04/16 03/08/21 Rx aerosol inhaler TRUEplus Lancets 28 gauge #400 each NS 09/26/17 03/08/21 Rx True Metrix Glucose Meter #1 each NS 09/26/17 03/08/21 Rx sitagliptin 100 mg tablet 100 mg PO QDAY #90 tab 11/28/17 03/08/21 Rx phenytoin sodium extended 100 mg See Rx Instructions PO .COMPLEX 12/01/17 03/08/21 Rx capsule #60 cap duloxetine 60 mg capsule,delayed 60 mg PO QDAY #30 cap 12/21/17 03/08/21 Rx release gemfibrozil 600 mg tablet 600 mg PO BID #60 tab 12/21/17 03/08/21 Rx oxybutynin chloride 10 mg 10 mg PO QDAY #30 tab 01/23/18 03/08/21 Rx tablet,extended release 24 hr omeprazole 40 mg capsule,delayed 40 mg PO ACB #90 cap 03/27/18 03/08/21 Rx release True Metrix Glucose Test Strip #100 each NS 05/29/18 03/08/21 Rx carvedilol 12.5 mg tablet 12.5 mg PO BID #60 tab 07/06/18 03/08/21 Rx buspirone 7.5 mg PO BID 03/08/21 03/08/21 History meclizine 12.5 mg PO TID 03/08/21 03/08/21 History metformin 500 mg PO BID 03/08/21 03/08/21 History nortriptyline 50 mg PO QHS 03/08/21 03/08/21 History olanzapine 10 mg PO QHS 03/08/21 03/08/21 History Allergies Allergy/AdvReac Type Severity Reaction Status Date / Time azithromycin Allergy Unknown Unknown Verified 02/17/21 18:34 Penicillins Allergy Unknown Hives Verified 02/17/21 18:34 cefuroxime [From Ceftin] Allergy Diarrhea Verified 02/17/21 18:34 ciprofloxacin [From Cipro] Allergy Hives Verified 02/17/21 18:34 sulfamethoxazole Allergy Hives Verified 02/17/21 18:34 [From Septra] trimethoprim [From Septra] Allergy Hives Verified 02/17/21 18:34 tetracycline [Tetracycline] AdvReac Unknown Unknown Verified 02/17/21 18:34 EXAM Constitutional Vitals: Temp Pulse Resp BP Pulse Ox 97.6 F 88 14 135/65 100 03/08/21 04:01 03/08/21 07:01 03/08/21 07:01 03/08/21 07:01 03/08/21 07:01 Exam: General: drowsy, No acute Distress Eyes/N/T: EOMI, PERRL, dMM Head/Neck: neck supple, normocephalic atraumatic CV: RRR, No murmurs, normal s1/s2 Pulm: Clear b/l, no wheezing/rhonchi/rales Abd: soft, nontender, +BS x4 Ext: no clubbing/cyanosis/edema Neuro: Was agitated overnight requiring one-on-one but is not sleeping now and will arouse partially to sternal rub and opens eyes. Follows commands but does not answer questions symmetrical strength b/l upper/lower, sensations intact b/l upper/lower Skin: warm/dry DATA Data Completed and Pending Labs: Labs from last 24 hours 03/08/21 03/08/21 03/08/21 05:07 05:06 00:48 WBC 5.3 RBC 3.16 L Hgb 10.7 L Hct 30.7 L MCV 97.2 MCH 33.9 MCHC 34.9 RDW 14.0 Plt Count 125 L MPV 10.1 Neut % (Auto) 64.2 Lymph % (Auto) 21.0 Citrus % (Auto) 12.3 H Eos % (Auto) 2.3 Baso % (Auto) 0.2 Lymph # (Auto) 1.11 L [place] # (Auto) 0.65 Eos # (Auto) 0.12 Baso # (Auto) 0.01 Seg Neutrophils % Band Neutrophils % Lymphocytes % Monocytes % (Manual) Absolute Neutrophils 3.39 Platelet Estimate RBC Morphology Sodium 149 H Potassium 3.2 L Chloride 115 H Carbon Dioxide 18 L Anion Gap 16.0 BUN 13 Creatinine 0.7 POC Creatinine GFR Calculation 88 Glucose 208 H Uric Acid 9.8 H Calcium 8.9 Phosphorus 1.2 L Magnesium 1.4 L Total Bilirubin 0.3 Direct Bilirubin < 0.2 GGT 31 AST 28 ALT 14 Alkaline Phosphatase 82 Lactate Dehydrogenase 176 Total Creatine Kinase Troponin T Total Protein 5.5 L Albumin 3.8 Globulin 1.7 L Albumin/Globulin Ratio 2.2 Triglycerides 125 Beta-Hydroxybutyrate Urine Color Yellow Urine Appearance Clear Urine pH 5.[address] [place] 1.014 Urine Protein 30 A Urine Glucose (UA) Negative Urine Ketones 80 A Urine Occult Blood Negative Urine Nitrate Negative Urine Bilirubin Negative Urine Urobilinogen Negative Ur Leukocyte Esterase Negative Urine RBC < 1 Urine WBC 1 Ur Squamous Epith Cells 0 Urine Bacteria None Urine Mucus Few A Ur Culture Indicated? No Urine Opiates Screen Ur Opiates Confirm Ur Oxycodone Screen Urine Methadone Screen Ur Methadone Confirm Ur Barbiturates Screen Ur Barbiturate Confirm Phenytoin Ur Phencyclidine Scrn Urine PCP Confirm Ur Amphetamines Screen U Amphetamines Confirm U Benzodiazepines Scrn U Benzodiazepine Confm Urine Cocaine Screen Urine Cocaine Confirm U Cannabinoids Confirm U Marijuana (THC) Screen Ethyl Alcohol 03/07/21 03/07/21 03/07/21 23:02 21:56 21:26 WBC RBC Hgb Hct MCV MCH MCHC RDW Plt Count MPV Neut % (Auto) Lymph % (Auto) Citrus % (Auto) Eos % (Auto) Baso % (Auto) Lymph # (Auto) [place] # (Auto) Eos # (Auto) Baso # (Auto) Seg Neutrophils % Band Neutrophils % Lymphocytes % Monocytes % (Manual) Absolute Neutrophils Platelet Estimate RBC Morphology Sodium Potassium Chloride Carbon Dioxide Anion Gap BUN Creatinine POC Creatinine GFR Calculation Glucose Uric Acid Calcium Phosphorus Magnesium Total Bilirubin Direct Bilirubin GGT AST ALT Alkaline Phosphatase Lactate Dehydrogenase Total Creatine Kinase Troponin T Total Protein Albumin Globulin Albumin/Globulin Ratio Triglycerides Beta-Hydroxybutyrate 6.25 H Urine Color Urine Appearance Urine pH Ur Specific [place] Urine Protein Urine Glucose (UA) Urine Ketones Urine Occult Blood Urine Nitrate Urine Bilirubin Urine Urobilinogen Ur Leukocyte Esterase Urine RBC Urine WBC Ur Squamous Epith Cells Urine Bacteria Urine Mucus Ur Culture Indicated? Urine Opiates Screen Pending Ur Opiates Confirm Pending Ur Oxycodone Screen Pending Urine Methadone Screen Pending Ur Methadone Confirm Pending Ur Barbiturates Screen Pending Ur Barbiturate Confirm Pending Phenytoin 1.1 Ur Phencyclidine Scrn Pending Urine PCP Confirm Pending Ur Amphetamines Screen Pending U Amphetamines Confirm Pending U Benzodiazepines Scrn Pending U Benzodiazepine Confm Pending Urine Cocaine Screen Pending Urine Cocaine Confirm Pending U Cannabinoids Confirm Pending U Marijuana (THC) Screen Pending Ethyl Alcohol 03/07/21 03/07/21 03/07/21 21:26 21:25 21:25 WBC 7.8 RBC 3.71 L Hgb 12.7 Hct 36.6 MCV 98.7 MCH 34.2 H MCHC 34.7 RDW 14.3 Plt Count 168 MPV 10.3 Neut % (Auto) Lymph % (Auto) Citrus % (Auto) Eos % (Auto) Baso % (Auto) Lymph # (Auto) [place] # (Auto) Eos # (Auto) Baso # (Auto) Seg Neutrophils % 79 H Band Neutrophils % 2 Lymphocytes % 10 L Monocytes % (Manual) 9 Absolute Neutrophils Platelet Estimate Normal RBC Morphology Normal Sodium Potassium Chloride Carbon Dioxide Anion Gap BUN Creatinine POC Creatinine GFR Calculation Glucose Uric Acid Calcium Phosphorus Magnesium Total Bilirubin Direct Bilirubin GGT AST ALT Alkaline Phosphatase Lactate Dehydrogenase Total Creatine Kinase Troponin T < 0.01 Total Protein Albumin Globulin Albumin/Globulin Ratio Triglycerides Beta-Hydroxybutyrate Urine Color Urine Appearance Urine pH Ur Specific [place] Urine Protein Urine Glucose (UA) Urine Ketones Urine Occult Blood Urine Nitrate Urine Bilirubin Urine Urobilinogen Ur Leukocyte Esterase Urine RBC Urine WBC Ur Squamous Epith Cells Urine Bacteria Urine Mucus Ur Culture Indicated? Urine Opiates Screen Ur Opiates Confirm Ur Oxycodone Screen Urine Methadone Screen Ur Methadone Confirm Ur Barbiturates Screen Ur Barbiturate Confirm Phenytoin Ur Phencyclidine Scrn Urine PCP Confirm Ur Amphetamines Screen U Amphetamines Confirm U Benzodiazepines Scrn U Benzodiazepine Confm Urine Cocaine Screen Urine Cocaine Confirm U Cannabinoids Confirm U Marijuana (THC) Screen Ethyl Alcohol < 0.010 03/07/21 03/07/21 21:25 21:25 WBC RBC Hgb Hct MCV MCH MCHC RDW Plt Count MPV Neut % (Auto) Lymph % (Auto) [place] % (Auto) Eos % (Auto) Baso % (Auto) Lymph # (Auto) [place] # (Auto) Eos # (Auto) Baso # (Auto) Seg Neutrophils % Band Neutrophils % Lymphocytes % Monocytes % (Manual) Absolute Neutrophils Platelet Estimate RBC Morphology Sodium 146 H Potassium 2.9 L* Chloride 106 Carbon Dioxide 9 L* Anion Gap 31.0 H BUN 23 Creatinine 0.9 POC Creatinine 0.5 L GFR Calculation 65 Glucose 192 H Uric Acid Calcium 10.3 Phosphorus Magnesium Total Bilirubin 0.4 Direct Bilirubin GGT AST 28 ALT 15 Alkaline Phosphatase 104 Lactate Dehydrogenase Total Creatine Kinase 626 H Troponin T Total Protein 6.8 Albumin 4.7 Globulin 2.1 L Albumin/Globulin Ratio 2.2 Triglycerides Beta-Hydroxybutyrate Urine Color Urine Appearance Urine pH Ur Specific [place] Urine Protein Urine Glucose (UA) Urine Ketones Urine Occult Blood Urine Nitrate Urine Bilirubin Urine Urobilinogen Ur Leukocyte Esterase Urine RBC Urine WBC Ur Squamous Epith Cells Urine Bacteria Urine Mucus Ur Culture Indicated? Urine Opiates Screen Ur Opiates Confirm Ur Oxycodone Screen Urine Methadone Screen Ur Methadone Confirm Ur Barbiturates Screen Ur Barbiturate Confirm Phenytoin Ur Phencyclidine Scrn Urine PCP Confirm Ur Amphetamines Screen U Amphetamines Confirm U Benzodiazepines Scrn U Benzodiazepine Confm Urine Cocaine Screen Urine Cocaine Confirm U Cannabinoids Confirm U Marijuana (THC) Screen Ethyl Alcohol A/P Narrative A/P Narrative: A: *likely starvation ketosis (h/o same): -improving *AG MEt acidosis: improved with IVF *Encephalopathy: *DM: A1c *Dehydration w/hypernatremia: *Hypomagnesemia/hypophosphatemia/hypokalemia: *HTN/HLD: *GERD: *Schizophrenia: *h/o persistently elevated CPK: is on gemfibrozil which could be a cause *h/o Sz d/o: on phenytoin *Diarrhea: none since admit P: -D5W, f/u sodium and other electrolytes -SSI -cont psych meds -cont BB -f/u cpk, d/c gemfibrozil and f/u with PCP -stool studies, c. diff if diarrhea -dietary consult - -PT/OT -CM for placement needs -ppx: lonvenox/home ppi Time Spent With Patient Time: Total time spent is greater than 50% in coordination of care (as documented) at patient's floor/unit and/or counseling patient: QUALITY VTE Deep Vein Thrombosis/Pulmonary Embolism Present on Admission: No
--- NOTE | 2021-03-08 07:44 | Cat Scan Report ---
CLINICAL INFORMATION: Trauma COMPARISON: Cervical spine CT 02/07/2021 TECHNIQUE: 0.625 mm helical slices were obtained from the skull base through the superior T2 end plate, and following reconstruction, 2.5 mm sagittal, coronal and axial reformations were then processed. The exam was reviewed at bone and soft tissue windows. The exam was performed using radiation dose optimization techniques including, but not limited to, automated exposure control, adjustment of the mA and/or kV according to patient size and use of iterative reconstruction technique. FINDINGS: The sagittal reformatted images show the cervical spine is anatomically aligned. There is no fracture or other osseous abnormality. The cervical cord is normal in contour and caliber without hemorrhage or other abnormality. Multinodular thyroid adenoma is stable. Small amount of calcific plaque present in the carotid bifurcations. No other soft tissue abnormalities. Lung apices are normal. The C2-3 and C3-4 disc levels are normal. At C4-5, mild broad disc protrusion mildly impinges the anterior thecal sac. At C5-6, moderate broad disc protrusion left-sided asymmetry results in moderate left lateral recess narrowing. There is impingement of the exiting left C6 nerve root. Mild central canal narrowing noted. At C6-7, moderate broad disc protrusion with left-sided asymmetry results in severe left lateral recess/ IV foraminal narrowing with impingement of the exiting left C7 nerve root. Mild central canal narrowing The C7-T1 disc level is normal IMPRESSION: No fracture or posttraumatic change. Multilevel degeneration. At C5-6 and C6-7, significant left lateral recess and IV foraminal narrowing results in exiting left C6 and left C7 nerve root impingement. Please correlate with left upper extremity radiculopathy Interpreted and Authenticated by: Zach Tang 03/08/21
[2021-03-08] MEDS ORDERED: POTASSIUM PHOSPHATE 20 MEQ in DEXTROSE 5% IN WATER 250 ML IV ONE (08:00)
[2021-03-08] MEDS: DEXTROSE 5% IN WATER 1,000 ML IV SCH ×3 (08:07→17:22)
[2021-03-08 08:37] LABS: Acetaminophen < 5.0 ug/mL; Salicylate < 0.3 mg/dL
[2021-03-08 08:58] LABS: Hemoglobin A1C 4.9 % Hgb (4.0-6.0)
[2021-03-08] MEDS ORDERED: PHOSPHORUS 250 MG TABLET PO SCH (09:00)
[2021-03-08] MEDS ORDERED: POTASSIUM CHLORIDE 20 MEQ TABLET PO PRN ×2 (11:06)
[2021-03-08] MEDS ORDERED: POLYETHYLENE GLYCOL 3350 17 GM PACKET PO PRN (11:06)
[2021-03-08] MEDS ORDERED: ONDANSETRON 4 MG/2 ML VIAL IV PRN (11:06)
[2021-03-08] MEDS ORDERED: POTASSIUM CHLORIDE 40 MEQ in DEXTROSE 5% IN WATER 500 ML IV PRN (11:06)
[2021-03-08] MEDS ORDERED: ACETAMINOPHEN 325 MG TABLET PO PRN (11:06)
[2021-03-08] MEDS ORDERED: SENNOSIDES 1 TABLET PO PRN (11:06)
[2021-03-08] MEDS ORDERED: IPRATROPIUM/ALBUTEROL 3 ML AMPUL.NEB NEB PRN (11:06)
[2021-03-08] MEDS ORDERED: MECLIZINE 25 MG TABLET PO PRN (11:16)
--- NOTE | 2021-03-08 15:33 | EKG ---
[facility] Test Date: 2021-03-07 Pat Name: Bibi Murrell Department: ED Room: Gender: Female Licensed Audiologist: : 1950 Requested By: Raheem Germain Order Number: [id number] Reading MD: Geronimo Kay M.D. Measurements Intervals [place] Rate: 96 P: 27 RI: 180 QRS: 14 QRSD: 82 T: 239 QT: 350 QTc: 443 Interpretive Statements Sinus rhythm Atrial premature complexes Borderline repolarization abnormality Since previous ECG of 02-07-2021, sinus rhythm, shorter QTc, ABNORMAL TRACING Electronically Signed On 03-08-2021 15:32:45 PDT by Geronimo Kay M.D. /[facility] [place]/[id number]
[2021-03-08] MEDS: 0.9 % SODIUM CHLORIDE 10 ML SYRINGE IV SCH ×2 (16:01→21:35)
[2021-03-08 17:14] LABS: Phosphorous 1.9 mg/dL (2.5-4.5)
[2021-03-08] MEDS: CARVEDILOL 12.5 MG TABLET PO SCH (17:22)
[2021-03-08 17:27] LABS: Blood Urea Nitrogen 8 mg/dL (8-23); Calcium 8.4 mg/dL (8.6-10.4); Carbon Dioxide 18 mmol/L (22-30); Chloride 109 mmol/L (96-108); Glomerular Filtration Rate 93; Glucose 118 mg/dL (70-105)
[2021-03-08] MEDS ORDERED: POTASSIUM CHLORIDE 20 MEQ TABLET PO ONE (17:30)
[2021-03-08] MEDS ORDERED: MAGNESIUM SULFATE 8.12 MEQ in DEXTROSE 5% IN WATER 50 ML IV ONE (17:30)
[2021-03-08] MEDS ORDERED: 0.45 % SODIUM CHLORIDE 1,000 ML IV SCH (17:45)
[2021-03-08] MEDS: PHENYTOIN SOD 100 MG CAPSULE PO SCH (21:26)
[2021-03-08] MEDS: PHOSPHORUS 250 MG TABLET PO SCH (21:27)
[2021-03-08] MEDS: NORTRIPTYLINE 25 MG CAPSULE PO SCH (21:27)
[2021-03-08] MEDS: busPIRone 5 MG TABLET PO SCH (21:27)
[2021-03-08] MEDS: OLANZapine 5 MG TABLET PO SCH (21:27)
[2021-03-08] MEDS ORDERED: INSULIN LISPRO 1 UNIT/0.01 ML UNIT SQ ONE (23:53)
[2021-03-09] MEDS ORDERED: DEXTROSE 50% 50 ML VIAL IV PRN
[2021-03-09] MEDS: INSULIN LISPRO 1 UNIT/0.01 ML UNIT SQ SCH ×5 (03:33→21:29)
[2021-03-09] MEDS: 0.9 % SODIUM CHLORIDE 10 ML SYRINGE IV SCH ×3 (05:40→21:35)
--- NOTE | 2021-03-09 07:15 | Internal Med Progress Note ---
SUBJECTIVE Subjective Patient information: Note initiated : 03/09/21 at 7:07 am Service Date, if different from initiated Date: [] Patient: Bibi Murrell a 70 y/o F admitted on 03/08/21 for altered mental status. Chief Complaint: [] Interval history: History of present illness: Ms. Murrell is a 70 year old F Was brought in by EMS after she was found on the toilet by her brother for unknown duration but was on the toilet for least 2 hours while this brother was there waiting for her to be done. per EMS She was unable answer questions, she knew where she was at but did not answer any other questions. Sister felt she was acting strange prior to being found. Per sister she has had quite a bit of diarrhea recently as well. No episodes since admission. Unable to gather any history from the patient as she will not answer questions. Patient did have a similar presentation July 2017. At that time his felt related to starvation ketosis. She is found to be anion gap metabolic acidosis. pH is 7.36, positive ketones and blood in urine. Blood glucose only 192. Patient found to be mildly hyponatremic and hypokalemic as well . CT brain and chest x-ray unremarkable. January she had a UTI with Klebsiella and a gram-positive. UA this time u nremarkable. She was quite agitated overnight and needed one-on-one but is now sleeping 03/09 Patient feeling better. She says she slept for the first time in a long time. No new complaints. Potassium much improved. Phosphorus still low. Review of Systems: denies headache/fever/chills/nausea/vomiting/chest or abdominal pain/cough/dyspnea/diarrhea. Otherwise see above. Constitutional Vitals: Vital Signs Temp Pulse Resp BP Pulse Ox 97.8 F 76 18 121/51 100 03/09/21 02:35 03/09/21 06:01 03/09/21 06:01 03/09/21 06:01 03/09/21 06:01 Period Temp Pulse Resp BP Sys/Jessica Pulse Ox Last 24 Hr 97.4 F-99.8 F 56-85 12-19 91-144/47-75 98-100 Intake and Output 03/08/21 03/09/21 03/09/21 21:59 05:59 13:59 Intake Total 1060 520 Output Total 302 3 Balance 758 517 Weight 73.119 kg Intake & Output: Intake & Output 03/08/21 03/09/21 03/09/21 21:59 05:59 13:59 Intake Total 1060 520 Output Total 302 3 Balance 758 517 Weight 73.119 kg Intake: IV 1060 520 Sodium Chloride 0.45% 1,000 ml 100 0 @ 50 mls/hr IV .Q20H [facility] Rx#: [id number] Dextrose 5% in Water 1,000 ml @ 908 100 mls/hr IV .Q10H [facility] Rx#: [id number] Magnesium Sulfate 8.12 Meq In 52 Dextrose 5% in Water 50 ml @ 52 mls/hr IV ONCE ONE Rx#: [id number] Potassium Chloride 40 Meq In 520 Dextrose 5% in Water 500 ml @ 130 mls/hr IV ONCE ONE Rx#: [id number] Oral 0 Output: Void Amount 300 # of times incontinent of urine 2 3 Other: Urine Appearance Clear Urine Color Dark Yellow Urine Odor Normal # Voids 1 Exam: General: Awake, no acute Distress Eyes/N/T: EOMI, Head/Neck: neck supple, CV: RRR, No murmurs, Pulm: Clear b/l, no wheezing/rhonchi/rales Abd: soft, nontender, +BS x4 Ext: no clubbing/cyanosis/edema Neuro: Alert. Answering questions appropriately. Follows commands and moves extremities Skin: warm/dry OBJ DATA Labs CBC & Chem 7: 03/08/21 05:07 03/09/21 05:05 Labs: Abnormal Lab Results 03/08/21 03/08/21 03/08/21 16:00 05:07 05:06 RBC 3.16 L Hgb 10.7 L Hct 30.7 L MCH Plt Count 125 L [place] % (Auto) 12.3 H Lymph # (Auto) 1.11 L Seg Neutrophils % Lymphocytes % Sodium 149 H Potassium 2.9 L* 3.2 L Chloride 109 H 115 H Carbon Dioxide 18 L 18 L Anion Gap POC Creatinine Glucose 118 H 208 H Uric Acid 9.8 H Calcium 8.4 L Phosphorus 1.9 L 1.2 L Magnesium 1.4 L Total Creatine Kinase Total Protein 5.5 L Globulin 1.7 L Beta-Hydroxybutyrate Urine Protein Urine Ketones Urine Mucus 03/08/21 03/07/21 03/07/21 00:48 23:02 21:26 RBC 3.71 L Hgb Hct MCH 34.2 H Plt Count [place] % (Auto) Lymph # (Auto) Seg Neutrophils % 79 H Lymphocytes % 10 L Sodium Potassium Chloride Carbon Dioxide Anion Gap POC Creatinine Glucose Uric Acid Calcium Phosphorus Magnesium Total Creatine Kinase Total Protein Globulin Beta-Hydroxybutyrate 6.25 H Urine Protein 30 A Urine Ketones 80 A Urine Mucus Few A 03/07/21 03/07/21 21:25 21:25 RBC Hgb Hct MCH Plt Count [place] % (Auto) Lymph # (Auto) Seg Neutrophils % Lymphocytes % Sodium 146 H Potassium 2.9 L* Chloride Carbon Dioxide 9 L* Anion Gap 31.0 H POC Creatinine 0.5 L Glucose 192 H Uric Acid Calcium Phosphorus Magnesium Total Creatine Kinase 626 H Total Protein Globulin 2.1 L Beta-Hydroxybutyrate Urine Protein Urine Ketones Urine Mucus Meds: Medications Acetaminophen (Acetaminophen 325 Mg Tablet) 650 mg PO Q6HP PRN PRN Reason: PAIN/FEVER > 101 Albuterol/Ipratropium (Ipratropium/Albuterol 3 Ml Ampul.Neb) 3 ml NEB Q4HP PRN PRN Reason: Shortness Of Breath Buspirone HCl (Buspirone 5 Mg Tablet) 7.5 mg PO BID [facility] Last Admin: 03/08/21 21:27 Dose: 7.5 mg Documented by: Carvedilol (Carvedilol 12.5 Mg Tablet) 12.5 mg PO BIDCC [facility] Last Admin: 03/08/21 17:22 Dose: 12.5 mg Documented by: Dextrose (Dextrose 50% 50 Ml Vial) 0 ml IV UD PRN PRN Reason: Hypoglycemia Diagnostic Test (Pha) (Accu-Chek 1 Each Strip) 1 each FS Q4H [facility] Last Admin: 03/09/21 03:30 Dose: 1 each Documented by: Duloxetine HCl (Duloxetine 30 Mg Capsule) 60 mg PO DAILY [facility] Enoxaparin Sodium (Enoxaparin 40 Mg/0.4 Ml Syringe) 40 mg SQ DAILY [facility] Glucose (Dextrose 31 Gm Oral.Susp) 15 gm PO PRN PRN PRN Reason: Hypoglycemia Potassium Chloride 40 meq/ (Dextrose) 520 mls @ 130 mls/hr IV UD PRN PRN Reason: Potassium < 3 Magnesium Sulfate (Magnesium Sulfate) 2 gm in 50 mls @ 50 mls/hr IV UD PRN PRN Reason: Magnesium </= 1.6 Sodium Chloride (Sodium Chloride 0.45%) 1,000 mls @ 50 mls/hr IV .Q20H [facility] Last Infusion: 03/09/21 02:27 Dose: 50 mls/hr Documented by: Insulin Human Lispro (Insulin Lispro 1 Unit/0.01 Ml Unit) 0 unit SQ Q4H [facility]; Protocol Last Admin: 03/09/21 03:33 Dose: Not Given Documented by: Meclizine HCl (Meclizine 25 Mg Tablet) 12.5 mg PO TIDP PRN PRN Reason: Vertigo Nortriptyline HCl (Nortriptyline 25 Mg Capsule) 50 mg PO [facility] Last Admin: 03/08/21 21:27 Dose: 50 mg Documented by: Olanzapine (Olanzapine 5 Mg Tablet) 10 mg PO [facility] Last Admin: 03/08/21 21:27 Dose: 10 mg Documented by: Omeprazole (Omeprazole 20 Mg Capsule) 40 mg PO ACB [facility] Ondansetron HCl (Ondansetron 4 Mg/2 Ml Vial) 4 mg IV Q4HP PRN PRN Reason: Nausea And Vomiting Oxybutynin Chloride (Oxybutynin Chloride 5 Mg Tab.Xl.24h) 10 mg PO DAILY [facility] Phenytoin Sodium (Phenytoin Sod 100 Mg Capsule) 200 mg PO [facility] Last Admin: 03/08/21 21:26 Dose: 200 mg Documented by: Polyethylene Glycol (Polyethylene Glycol 3350 17 Gm Packet) 17 gm PO DAILYP PRN PRN Reason: Constipation Potassium Chloride (Potassium Chloride 20 Meq Tablet) 40 meq PO UD PRN PRN Reason: Potssium is 3-3.5 Potassium Chloride (Potassium Chloride 20 Meq Tablet) 40 meq PO UD PRN PRN Reason: Potassium < 3 Senna (Sennosides 1 Tablet) 2 tab PO DAILYP PRN PRN Reason: Constipation Sodium Chloride (0.9 % Sodium Chloride 10 Ml Syringe) 10 ml IV Q8 [facility] Last Admin: 03/09/21 05:40 Dose: 10 ml Documented by: Sodium Phosphate (Phosphorus 250 Mg Tablet) 250 mg PO BID [facility] Stop: 03/09/21 09:01 Last Admin: 03/08/21 21:27 Dose: 250 mg Documented by: A/P Narrative A/P Narrative: A: *likely starvation ketosis (h/o same): -improving *AG MEt acidosis: improved with IVF *Encephalopathy: 2/2 above + underly psych -much improved *Schizophrenia: *DM: A1c *Dehydration w/hypernatremia: *Hypomagnesemia/hypophosphatemia/hypokalemia: *HTN/HLD: *GERD: *h/o persistently elevated CPK on past/current labs: is on gemfibrozil which could be a cause *h/o Sz d/o: on phenytoin *Diarrhea: none since admit P: -s/p IVF -replace electrolytes -SSI -cont psych meds -cont come coreg but decrease -f/u cpk, d/c gemfibrozil and f/u with PCP -stool studies, c. diff if diarrhea -dietary consult - -PT/OT -CM for placement needs -ppx: lonvenox/home ppi Time Spent With Patient Time: Total time spent is greater than 50% in coordination of care (as documented) at patient's floor/unit and/or counseling patient: QUALITY VTE Deep Vein Thrombosis/Pulmonary Embolism Present on Admission: No
[2021-03-09] MEDS: OMEPRAZOLE 20 MG CAPSULE PO SCH (07:17)
[2021-03-09] MEDS: CARVEDILOL 12.5 MG TABLET PO SCH ×3 (07:18→17:18)
[2021-03-09 07:57] LABS: ALT/SGPT 15 U/L (<40); AST/SGOT 33 U/L (<32); Albumin 3.3 gm/dL (3.2-5.2); Albumin/Globulin Ratio 2.1 (1.0-2.3); Alkaline Phosphatase 79 U/L (39-117); Bilirubin,Direct < 0.2 mg/dL (0-0.3); Bilirubin,Total 0.3 mg/dL (0.1-1.0); Blood Urea Nitrogen 4 mg/dL (8-23); Calcium 8.1 mg/dL (8.6-10.4); Carbon Dioxide 17 mmol/L (22-30); Chloride 113 mmol/L (96-108); Globulin 1.6 gm/dL (2.2-3.7); Glomerular Filtration Rate 99; Glucose 113 mg/dL (70-105); Lactate Dehydrogenase 222 U/L (135-225); Phosphorous 1.7 mg/dL (2.5-4.5); Triglycerides 133 mg/dL (<150); Uric Acid 6.8 mg/dL (2.5-8.0)
[2021-03-09] MEDS: busPIRone 5 MG TABLET PO SCH ×2 (08:23→21:33)
[2021-03-09] MEDS: ENOXAPARIN 40 MG/0.4 ML SYRINGE SQ SCH (08:23)
[2021-03-09] MEDS: OXYBUTYNIN CHLORIDE 5 MG TAB.XL.24H PO SCH (08:24)
[2021-03-09] MEDS: PHOSPHORUS 250 MG TABLET PO SCH ×3 (08:24→21:33)
[2021-03-09] MEDS: DULoxetine 30 MG CAPSULE PO SCH (08:24)
[2021-03-09] MEDS ORDERED: POTASSIUM PHOSPHATE 40 MEQ in DEXTROSE 5% IN WATER 500 ML IV ONE (09:00)
[2021-03-09] MEDS: MAGNESIUM SULFATE 2 GM/50 ML BAG IV PRN (09:23)
[2021-03-09] MEDS: PHENYTOIN SOD 100 MG CAPSULE PO SCH (21:30)
[2021-03-09] MEDS: OLANZapine 5 MG TABLET PO SCH (21:30)
[2021-03-09] MEDS: NORTRIPTYLINE 25 MG CAPSULE PO SCH (21:33)
[2021-03-10] MEDS: 0.9 % SODIUM CHLORIDE 10 ML SYRINGE IV SCH ×3 (04:49→20:50)
[2021-03-10] MEDS: OMEPRAZOLE 20 MG CAPSULE PO SCH (06:58)
[2021-03-10 06:59] LABS: ALT/SGPT 15 U/L (<40); AST/SGOT 24 U/L (<32); Albumin/Globulin Ratio 1.6 (1.0-2.3); Alkaline Phosphatase 88 U/L (39-117); Bilirubin,Direct < 0.2 mg/dL (0-0.3); Bilirubin,Total 0.2 mg/dL (0.1-1.0); Blood Urea Nitrogen 8 mg/dL (8-23); Calcium 8.6 mg/dL (8.6-10.4); Carbon Dioxide 22 mmol/L (22-30); Chloride 111 mmol/L (96-108); Creatine Kinase 182 U/L (24-170); Globulin 1.9 gm/dL (2.2-3.7); Glomerular Filtration Rate 99; Glucose 126 mg/dL (70-105); Lactate Dehydrogenase 202 U/L (135-225); Phosphorous 2.6 mg/dL (2.5-4.5); Triglycerides 184 mg/dL (<150); Uric Acid 5.3 mg/dL (2.5-8.0)
[2021-03-10] MEDS: INSULIN LISPRO 1 UNIT/0.01 ML UNIT SQ SCH ×5 (07:10→20:20)
[2021-03-10] MEDS: CARVEDILOL 12.5 MG TABLET PO SCH ×3 (08:42→17:02)
[2021-03-10] MEDS: ENOXAPARIN 40 MG/0.4 ML SYRINGE SQ SCH (08:42)
[2021-03-10] MEDS: DULoxetine 30 MG CAPSULE PO SCH (08:45)
[2021-03-10] MEDS: OXYBUTYNIN CHLORIDE 5 MG TAB.XL.24H PO SCH (08:45)
[2021-03-10] MEDS: busPIRone 5 MG TABLET PO SCH ×2 (08:45→20:19)
[2021-03-10] MEDS: MAGNESIUM SULFATE 2 GM/50 ML BAG IV PRN (09:00)
--- NOTE | 2021-03-10 15:45 | Internal Med Progress Note ---
SUBJECTIVE Subjective Patient information: Note initiated : 03/10/21 at 3:41 pm Service Date, if different from initiated Date: [] Patient: Bibi Murrell 70 y/o F admitted on 03/08/21 for altered mental status. Chief Complaint: [] Interval history: Pt is feeling well. No CP,SOB, N/V, fever, chills . A&Ox 2. comfortable. Constitutional Vitals: Vital Signs Temp Pulse Resp BP Pulse Ox 97.4 F 74 23 H 109/61 98 03/10/21 12:00 03/10/21 14:19 03/10/21 14:19 03/10/21 14:01 03/10/21 14:19 Period Temp Pulse Resp BP Sys/Jessica Pulse Ox Last 24 Hr 97.4 F-98.8 F 66-98 10-24 108-144/49-110 97-100 Intake and Output 03/10/21 03/10/21 03/10/21 05:59 13:59 21:59 Intake Total 240 390 Output Total 575 375 Balance -335 15 Intake & Output: Intake & Output 03/10/21 03/10/21 03/10/21 05:59 13:59 21:59 Intake Total 240 390 Output Total 575 375 Balance -335 15 Intake: IV 50 Oral 240 340 Output: Void Amount 575 375 Other: Meal Breakfast Percent of Meal Consumed 100% Urine Appearance Clear Urine Color Bright Yellow Urine Odor Normal Stool Size Large Stool Color Brown Stool Consistency Formed # Voids 1 Additional findings Additional findings: General: Awake , A&Ox 2. No acute Distress Eyes/N/T: EOMI, Head/Neck: neck supple, No JVD CV: RRR, No murmurs, Pulm: Clear b/l, no wheezing/rhonchi/rales Abd: soft, nontender, +BS x4 Ext: no clubbing/cyanosis/edema Neuro: Alert. Answering questions appropriately. Follows commands and moves extremities Skin: warm/dry OBJ DATA Labs CBC & Chem 7: 03/08/21 05:07 03/10/21 05:00 Labs: Abnormal Lab Results 03/10/21 03/09/21 03/09/21 05:00 05:05 05:05 RBC Hgb Hct MCH Plt Count [place] % (Auto) Lymph # (Auto) Seg Neutrophils % Lymphocytes % Sodium Potassium Chloride 111 H 113 H Carbon Dioxide 17 L Anion Gap BUN 4 L Creatinine 0.5 L 0.5 L POC Creatinine Glucose 126 H 113 H Uric Acid Calcium 8.1 L Phosphorus 1.7 L Magnesium 1.5 L AST 33 H Total Creatine Kinase 182 H 462 H Total Protein 4.9 L 4.9 L Albumin 3.0 L Globulin 1.9 L 1.6 L Triglycerides 184 H Beta-Hydroxybutyrate 1.70 H Urine Protein Urine Ketones Urine Mucus 03/08/21 03/08/21 03/08/21 16:00 05:07 05:06 RBC 3.16 L Hgb 10.7 L Hct 30.7 L MCH Plt Count 125 L [place] % (Auto) 12.3 H Lymph # (Auto) 1.11 L Seg Neutrophils % Lymphocytes % Sodium 149 H Potassium 2.9 L* 3.2 L Chloride 109 H 115 H Carbon Dioxide 18 L 18 L Anion Gap BUN Creatinine POC Creatinine Glucose 118 H 208 H Uric Acid 9.8 H Calcium 8.4 L Phosphorus 1.9 L 1.2 L Magnesium 1.4 L AST Total Creatine Kinase Total Protein 5.5 L Albumin Globulin 1.7 L Triglycerides Beta-Hydroxybutyrate Urine Protein Urine Ketones Urine Mucus 03/08/21 03/07/21 03/07/21 00:48 23:02 21:26 RBC 3.71 L Hgb Hct MCH 34.2 H Plt Count [place] % (Auto) Lymph # (Auto) Seg Neutrophils % 79 H Lymphocytes % 10 L Sodium Potassium Chloride Carbon Dioxide Anion Gap BUN Creatinine POC Creatinine Glucose Uric Acid Calcium Phosphorus Magnesium AST Total Creatine Kinase Total Protein Albumin Globulin Triglycerides Beta-Hydroxybutyrate 6.25 H Urine Protein 30 A Urine Ketones 80 A Urine Mucus Few A 03/07/21 03/07/21 21:25 21:25 RBC Hgb Hct MCH Plt Count [place] % (Auto) Lymph # (Auto) Seg Neutrophils % Lymphocytes % Sodium 146 H Potassium 2.9 L* Chloride Carbon Dioxide 9 L* Anion Gap 31.0 H BUN Creatinine POC Creatinine 0.5 L Glucose 192 H Uric Acid Calcium Phosphorus Magnesium AST Total Creatine Kinase 626 H Total Protein Albumin Globulin 2.1 L Triglycerides Beta-Hydroxybutyrate Urine Protein Urine Ketones Urine Mucus Meds: Medications Acetaminophen (Acetaminophen 325 Mg Tablet) 650 mg PO Q6HP PRN PRN Reason: PAIN/FEVER > 101 Last Admin: 03/10/21 06:58 Dose: 650 mg Documented by: Albuterol/Ipratropium (Ipratropium/Albuterol 3 Ml Ampul.Neb) 3 ml NEB Q4HP PRN PRN Reason: Shortness Of Breath Buspirone HCl (Buspirone 5 Mg Tablet) 7.5 mg PO BID [facility] Last Admin: 03/10/21 08:45 Dose: 7.5 mg Documented by: [facility]il[facility] ([facility]5 [facility] Last Admin: 03/10/21 08:42 Dose: 6.25 mg Documented by: Dextrose (Dextrose 50% 50 Ml Vial) 0 ml IV UD PRN PRN Reason: Hypoglycemia Diagnostic Test (Pha) (Accu-Chek 1 Each Strip) 1 each FS [facility] Last Admin: 03/10/21 11:56 Dose: 1 each Documented by: Duloxetine HCl (Duloxetine 30 Mg Capsule) 60 mg PO DAILY [facility] Last Admin: 03/10/21 08:45 Dose: 60 mg Documented by: Enoxaparin Sodium (Enoxaparin 40 Mg/0.4 Ml Syringe) 40 mg SQ DAILY [facility] Last Admin: 03/10/21 08:42 Dose: 40 mg Documented by: Glucose (Dextrose 31 Gm Oral.Susp) 15 gm PO PRN PRN PRN Reason: Hypoglycemia Potassium Chloride 40 meq/ (Dextrose) 520 mls @ 130 mls/hr IV UD PRN PRN Reason: Potassium < 3 Magnesium Sulfate (Magnesium Sulfate) 2 gm in 50 mls @ 50 mls/hr IV UD PRN PRN Reason: Magnesium </= 1.6 Last Infusion: 03/10/21 10:02 Dose: Infused Documented by: Insulin Human Lispro (Insulin Lispro 1 Unit/0.01 Ml Unit) 0 unit SQ [facility]; Protocol Last Admin: 03/10/21 11:56 Dose: 3 units Documented by: Meclizine HCl (Meclizine 25 Mg Tablet) 12.5 mg PO TIDP PRN PRN Reason: Vertigo Nortriptyline HCl (Nortriptyline 25 Mg Capsule) [address] [facility] Last Admin: 03/09/21 21:33 Dose: 50 mg Documented by: Olanzapine (Olanzapine 5 Mg Tablet) [address] [facility] Last Admin: 03/09/21 21:30 Dose: 10 mg Documented by: Omeprazole (Omeprazole 20 Mg Capsule) 40 mg PO ACB [facility] Last Admin: 03/10/21 06:58 Dose: 40 mg Documented by: Ondansetron HCl (Ondansetron 4 Mg/2 Ml Vial) 4 mg IV Q4HP PRN PRN Reason: Nausea And Vomiting Oxybutynin Chloride (Oxybutynin Chloride 5 Mg Tab.Xl.24h) 10 mg PO DAILY [facility] Last Admin: 03/10/21 08:45 Dose: 10 mg Documented by: Phenytoin Sodium (Phenytoin Sod 100 Mg Capsule) 200 mg PO HS [facility] Last Admin: 03/09/21 21:30 Dose: 200 mg Documented by: Polyethylene Glycol (Polyethylene Glycol 3350 17 Gm Packet) 17 gm PO DAILYP PRN PRN Reason: Constipation Potassium Chloride (Potassium Chloride 20 Meq Tablet) 40 meq PO UD PRN PRN Reason: Potssium is 3-3.5 Potassium Chloride (Potassium Chloride 20 Meq Tablet) 40 meq PO UD PRN PRN Reason: Potassium < 3 Senna (Sennosides 1 Tablet) 2 tab PO DAILYP PRN PRN Reason: Constipation Sodium Chloride (0.9 % Sodium Chloride 10 Ml Syringe) 10 ml IV Q8 [facility] Last Admin: 03/10/21 14:52 Dose: 10 ml Documented by: A/P Narrative A/P Narrative: 70 year old F was brought in by EMS after she was found on the toilet by her brother for unknown duration but was on the toilet for least 2 hours while this brother was there waiting for her to be done. per EMS She was unable answer questions, she knew where she was at but did not answer any other questions. Sister felt she was acting strange prior to being found. # Suspect starvation ketosis (h/o same): - Improved. Dietitian following. # Anion gap acidosis: improved with IVF # Acute Metabolic Encephalopathy: 2/2 above + underly psych - Much improved. Now A&Ox 2. - Cont home Psych meds # Deconditioning. - Cont PT/OT -CM for placement needs # Schizophrenia: # DM: A1c 6.4. Cont SSI # HTN Cont come Coreg but decrease # Dehydration w/hypernatremia:Rxed with IVF. # Hypomagnesemia/hypophosphatemia/hypokalemia: # H/o persistently elevated CPK on past/current labs: is on Gemfibrozil which could be a cause - CPK Peaked 2633. Trended down to 180. Cont to Hold Gemfibrozil and f/u with PCP # H/o Sz d/o: on Phenytoin # Diarrhea: none since admit. -Stool studies, c. diff if diarrhea -DVT ppx Lonvenox/home ppi Code. services coordinator Spent With Patient Time: Total time spent is greater than 50% in coordination of care (as documented) at patient's floor/unit and/or counseling patient: QUALITY VTE Deep Vein Thrombosis/Pulmonary Embolism Present on Admission: No
[2021-03-10] MEDS ORDERED: POLYETHYLENE GLYCOL 3350 17 GM PACKET PO PRN (16:55)
[2021-03-10] MEDS ORDERED: POTASSIUM CHLORIDE 40 MEQ in DEXTROSE 5% IN WATER 500 ML IV PRN (16:55)
[2021-03-10] MEDS ORDERED: MAGNESIUM SULFATE 2 GM/50 ML BAG IV PRN (16:55)
[2021-03-10] MEDS ORDERED: ACETAMINOPHEN 325 MG TABLET PO PRN (16:55)
[2021-03-10] MEDS ORDERED: IPRATROPIUM/ALBUTEROL 3 ML AMPUL.NEB NEB PRN (16:55)
[2021-03-10] MEDS ORDERED: ONDANSETRON 4 MG/2 ML VIAL IV PRN (16:55)
[2021-03-10] MEDS ORDERED: MECLIZINE 25 MG TABLET PO PRN (16:55)
[2021-03-10] MEDS ORDERED: DEXTROSE 50% 50 ML VIAL IV PRN (16:55)
[2021-03-10] MEDS ORDERED: DEXTROSE 31 GM ORAL.SUSP PO PRN (16:55)
[2021-03-10] MEDS ORDERED: POTASSIUM CHLORIDE 20 MEQ TABLET PO PRN ×2 (16:55)
[2021-03-10] MEDS ORDERED: SENNOSIDES 1 TABLET PO PRN (16:55)
[2021-03-10] MEDS ORDERED: PHENYTOIN SOD 100 MG CAPSULE PO SCH (21:00)
[2021-03-10] MEDS ORDERED: NORTRIPTYLINE 25 MG CAPSULE PO SCH (21:00)
[2021-03-10] MEDS ORDERED: OLANZapine 5 MG TABLET PO SCH (21:00)
[2021-03-11] MEDS: 0.9 % SODIUM CHLORIDE 10 ML SYRINGE IV SCH ×2 (05:39→14:06)
[2021-03-11] MEDS: INSULIN LISPRO 1 UNIT/0.01 ML UNIT SQ SCH ×2 (07:20→11:54)
[2021-03-11] MEDS ORDERED: OMEPRAZOLE 20 MG CAPSULE PO SCH (07:30)
[2021-03-11] MEDS: CARVEDILOL 12.5 MG TABLET PO SCH (07:42)
[2021-03-11] MEDS ORDERED: OXYBUTYNIN CHLORIDE 5 MG TAB.XL.24H PO SCH (09:00)
[2021-03-11] MEDS ORDERED: DULoxetine 30 MG CAPSULE PO SCH (09:00)
[2021-03-11] MEDS ORDERED: ENOXAPARIN 40 MG/0.4 ML SYRINGE SQ SCH (09:00)
[2021-03-11] MEDS: busPIRone 5 MG TABLET PO SCH (09:17)
--- NOTE | 2021-03-11 13:02 | Internal Med Progress Note ---
SUBJECTIVE Subjective Patient information: Note initiated : 03/11/21 at 12:58 pm Service Date, if different from initiated Date: [] Patient: Bibi Murrell 70 y/o F admitted on 03/08/21 for altered mental status. Chief Complaint: Interval history: Pt is feeling well. No overnight issues. Comfortable. No CP,SOB, N/V, fever, chills . A&Ox 3 Constitutional Vitals: Vital Signs Temp Pulse Resp BP Pulse Ox 99.2 F H 87 16 136/65 99 03/11/21 11:57 03/10/21 22:42 03/11/21 11:57 03/11/21 11:57 03/11/21 11:57 Period Temp Pulse Resp BP Sys/Jessica Pulse Ox Last 24 Hr 98.1 F-99.2 F 74-94 14-27 108-157/52-79 96-100 Intake and Output 03/10/21 03/11/21 03/11/21 21:59 05:59 13:59 Intake Total 360 240 Output Total 400 1125 Balance -40 -885 Weight 76.022 kg Intake & Output: Intake & Output 03/10/21 03/11/21 03/11/21 21:59 05:59 13:59 Intake Total 360 240 Output Total 400 1125 Balance -40 -885 Weight 76.022 kg Intake: Oral 360 240 Output: Void Amount 400 1125 Other: Meal Dinner Percent of Meal Consumed 50% Feeding Ability Independent Urine Appearance Cloudy Urine Color Bright Yellow Bright Yellow Urine Odor Strong Normal Exam: General: Awake , A&Ox 3. No acute Distress. Comfortable. Eyes/N/T: EOMI, Head/Neck: neck supple, No JVD CV: RRR, No murmurs, Pulm: Clear b/l, no wheezing/rhonchi/rales Abd: soft, nontender, +BS x4 Ext: no clubbing/cyanosis/edema Neuro: Alert. Answering questions appropriately. Follows commands and moves extremities Skin: warm/dry. No rash OBJ DATA Labs CBC & Chem 7: 03/08/21 05:07 03/10/21 05:00 Labs: Abnormal Lab Results 03/10/21 03/09/21 03/09/21 05:00 05:05 05:05 Potassium Chloride 111 H 113 H Carbon Dioxide 17 L BUN 4 L Creatinine 0.5 L 0.5 L Glucose 126 H 113 H Calcium 8.1 L Phosphorus 1.7 L Magnesium 1.5 L AST 33 H Total Creatine Kinase 182 H 462 H Total Protein 4.9 L 4.9 L Albumin 3.0 L Globulin 1.9 L 1.6 L Triglycerides 184 H Beta-Hydroxybutyrate 1.70 H 03/08/21 16:00 Potassium 2.9 L* Chloride 109 H Carbon Dioxide 18 L BUN Creatinine Glucose 118 H Calcium 8.4 L Phosphorus 1.9 L Magnesium AST Total Creatine Kinase Total Protein Albumin Globulin Triglycerides Beta-Hydroxybutyrate Meds: Medications Acetaminophen (Acetaminophen 325 Mg Tablet) 650 mg PO Q6HP PRN PRN Reason: PAIN/FEVER > 101 Albuterol/Ipratropium (Ipratropium/Albuterol 3 Ml Ampul.Neb) 3 ml NEB Q4HP PRN PRN Reason: Shortness Of Breath Buspirone HCl (Buspirone 5 Mg Tablet) 7.5 mg PO BID [facility] Last Admin: 03/11/21 09:17 Dose: 7.5 mg Documented by: Carvedilol (Carvedilol 12.5 Mg Tablet) 6.25 mg PO BIDCC [facility] Last Admin: 03/11/21 07:42 Dose: 6.25 mg Documented by: Dextrose (Dextrose 50% 50 Ml Vial) 0 ml IV UD PRN PRN Reason: Hypoglycemia Diagnostic Test (Pha) (Accu-Chek 1 Each Strip) 1 each FS ACHS [facility] Last Admin: 03/11/21 11:53 Dose: 1 each Documented by: Duloxetine HCl (Duloxetine 30 Mg Capsule) 60 mg PO DAILY [facility] Last Admin: 03/11/21 09:17 Dose: 60 mg Documented by: Enoxaparin Sodium (Enoxaparin 40 Mg/0.4 Ml Syringe) 40 mg SQ DAILY [facility] Last Admin: 03/11/21 09:18 Dose: 40 mg Documented by: Glucose (Dextrose 31 Gm Oral.Susp) 15 gm PO PRN PRN PRN Reason: Hypoglycemia Magnesium Sulfate (Magnesium Sulfate) 2 gm in 50 mls @ 50 mls/hr IV UD PRN PRN Reason: Magnesium </= 1.6 Potassium Chloride 40 meq/ (Dextrose) 520 mls @ 130 mls/hr IV UD PRN PRN Reason: Potassium < 3 Insulin Human Lispro (Insulin Lispro 1 Unit/0.01 Ml Unit) 0 unit SQ [facility]; Protocol Last Admin: 03/11/21 11:54 Dose: 3 units Documented by: Meclizine HCl (Meclizine 25 Mg Tablet) 12.5 mg PO TIDP PRN PRN Reason: Vertigo Nortriptyline HCl (Nortriptyline 25 Mg Capsule) 50 mg PO [facility] Last Admin: 03/10/21 20:20 Dose: 50 mg Documented by: Olanzapine (Olanzapine 5 Mg Tablet) 10 mg PO [facility] Last Admin: 03/10/21 20:20 Dose: 10 mg Documented by: Omeprazole (Omeprazole 20 Mg Capsule) 40 mg PO ACB [facility] Last Admin: 03/11/21 07:41 Dose: 40 mg Documented by: Ondansetron HCl (Ondansetron 4 Mg/2 Ml Vial) 4 mg IV Q4HP PRN PRN Reason: Nausea And Vomiting Oxybutynin Chloride (Oxybutynin Chloride 5 Mg Tab.Xl.24h) 10 mg PO DAILY [facility] Last Admin: 03/11/21 09:18 Dose: 10 mg Documented by: Phenytoin Sodium (Phenytoin Sod 100 Mg Capsule) 200 mg PO [facility] Last Admin: 03/10/21 20:19 Dose: 200 mg Documented by: Polyethylene Glycol (Polyethylene Glycol 3350 17 Gm Packet) 17 gm PO DAILYP PRN PRN Reason: Constipation Potassium Chloride (Potassium Chloride 20 Meq Tablet) 40 meq PO UD PRN PRN Reason: Potssium is 3-3.5 Potassium Chloride (Potassium Chloride 20 Meq Tablet) 40 meq PO UD PRN PRN Reason: Potassium < 3 Senna (Sennosides 1 Tablet) 2 tab PO DAILYP PRN PRN Reason: Constipation Sodium Chloride (0.9 % Sodium Chloride 10 Ml Syringe) 10 ml IV Q8 [facility] Last Admin: 03/11/21 05:39 Dose: 10 ml Documented by: A/P Narrative A/P Narrative: 70 year old F was brought in by EMS after she was found on the toilet by her brother for unknown duration but was on the toilet for least 2 hours while this brother was there waiting for her to be done. per EMS She was unable answer questions, she knew where she was at but did not answer any other questions. Sister felt she was acting strange prior to being found. # Suspect starvation ketosis (h/o same): - Resolve. Dietitian following. # Anion gap acidosis: AG 16, Co2 of 17. resolved with IVF. # Acute Metabolic Encephalopathy: 2/2 above + underly psych -Resolved. Alert oriented X3 now. - Cont home Psych meds # Deconditioning. - Cont PT/OT -CM for placement needs # Schizophrenia: Stable. Continue home medication. # DM: A1c 6.4. Cont SSI # HTN Cont come Coreg but decrease # Hypomagnesemia/hypophosphatemia/hypokalemia: # H/o persistently elevated CPK on past/current labs: is on Gemfibrozil which could be a cause - CPK Peaked 2633. Trended down to 180. Cont to Hold Gemfibrozil and f/u with PCP # H/o Sz d/o: on Phenytoin # Diarrhea: none since admit. -Stool studies, c. diff if diarrhea -DVT ppx Lovenox/home ppi Code. full Disposition: Patient is ready for SNF versus home with home health/PT/OT. Time Spent With Patient Time: Total time spent is greater than 50% in coordination of care (as documented) at patient's floor/unit and/or counseling patient: QUALITY VTE Deep Vein Thrombosis/Pulmonary Embolism Present on Admission: No
--- NOTE | 2021-03-11 15:40 | Discharge Summary ---
Discharge Provider Provider Patient information: Note initiated : 03/11/21 at 3:37 pm Service Date, if different from initiated Date: Patient: Bibi Murrell 70 y/o F admitted on 03/08/21 for altered mental status. Chief Complaint: AMS Date of admission: 03/08/21 01:37 Discharge date: 03/11/21 Primary care physician: Cali Herron Discharge Meds Discharge Medications Home Medications albuterol sulfate 90 mcg/actuation aerosol inhaler 2 puff INHALATION Q6H PRN #18 g 08/04/16 [Rx Confirmed 03/08/21 Last Taken Unknown] TRUEplus Lancets 28 gauge #400 each NS 09/26/17 [Rx Confirmed 03/08/21 Last Taken Unknown] True Metrix Glucose Meter #1 each NS 09/26/17 [Rx Confirmed 03/08/21 Last Taken Unknown] sitagliptin 100 mg tablet 100 mg PO QDAY #90 tab 11/28/17 [Rx Confirmed 03/08/21 Last Taken Unknown] phenytoin sodium extended 100 mg capsule See Rx Instructions PO .COMPLEX #60 cap 12/01/17 [Rx Confirmed 03/08/21 Last Taken Unknown] duloxetine 60 mg capsule,delayed release 60 mg PO QDAY #30 cap 12/21/17 [Rx Confirmed 03/08/21 Last Taken Unknown] gemfibrozil 600 mg tablet 600 mg PO BID #60 tab 12/21/17 [Rx Confirmed 03/08/21 Last Taken Unknown] oxybutynin chloride 10 mg tablet,extended release 24 hr 10 mg PO QDAY #30 tab 01/23/18 [Rx Confirmed 03/08/21 Last Taken Unknown] omeprazole 40 mg capsule,delayed release 40 mg PO ACB #90 cap 03/27/18 [Rx Confirmed 03/08/21 Last Taken Unknown] True Metrix Glucose Test Strip #100 each NS 05/29/18 [Rx Confirmed 03/08/21 Last Taken Unknown] carvedilol 12.5 mg tablet 12.5 mg PO BID #60 tab 07/06/18 [Rx Confirmed 03/08/21 Last Taken Unknown] buspirone 7.5 mg PO BID 03/08/21 [History Confirmed 03/08/21 Last Taken Unknown] meclizine 12.5 mg PO TID 03/08/21 [History Confirmed 03/08/21 Last Taken Unknown] metformin 500 mg PO BID 03/08/21 [History Confirmed 03/08/21 Last Taken Unknown] nortriptyline 50 mg PO QHS 03/08/21 [History Confirmed 03/08/21 Last Taken Unknown] olanzapine 10 mg PO QHS 03/08/21 [History Confirmed 03/08/21 Last Taken Unknown] COURSE Hospital Course Hospital course: 70 year old F was brought in by EMS after she was found on the toilet by her brother for unknown duration but was on the toilet for least 2 hours while this brother was there waiting for her to be done. per EMS She was unable answer questions, she knew where she was at but did not answer any other questions. Sister felt she was acting strange prior to being found. # Suspect starvation ketosis (h/o same): - Resolve. Dietitian following. # Anion gap acidosis: AG 16, Co2 of 17. resolved with IVF. # Acute Metabolic Encephalopathy: 2/2 above + underly psych -Resolved. Alert oriented X3 now. - Cont home Psych meds # Deconditioning. - Cont PT/OT. Dced to SNF. # Schizophrenia: Stable. Continue home medication. # DM: A1c 6.4. Resume home medication. # HTN Cont come Coreg but decrease # Hypomagnesemia/hypophosphatemia/hypokalemia: # H/o persistently elevated CPK on past/current labs: is on Gemfibrozil which could be a cause - CPK Peaked 2633. Trended down to 180. Cont to Hold Gemfibrozil and f/u with PCP # H/o Sz d/o: on Phenytoin # Diarrhea: none since admit. - Stool studies, c. diff if diarrhea -DVT ppx Lovenox/home ppi Code. full Disposition: Patient discharged [facility] Condition on discharge: Hemodynamically stable. Tolerated p.o. Discharge activity: As tolerated Discharge diet: Diabetic diet Discharge medication: See med reconciliation form Discharge follow-up: Primary care physician within 1 week for post hospital follow-up Discharge diagnosis: Acute Encephalopathy. Toxic and metabolic. Resolved. Time Spent with Patient Time attestation: Total time spent providing and/or coordinating discharge services: Time spent: Greater than 30 minutes Specific discharge activities: 36 minutes EXAM Constitutional Vitals: Temp Pulse Resp BP Pulse Ox 99.2 F H 87 16 136/65 99 03/11/21 11:57 03/10/21 22:42 03/11/21 11:57 03/11/21 11:57 03/11/21 11:57 Additional findings Additional findings: Awake , A&Ox 3. No acute Distress. Comfortable. Eyes/N/T: EOMI, Head/Neck: neck supple, No JVD CV: RRR, No murmurs, Pulm: Clear b/l, no wheezing/rhonchi/rales Abd: soft, nontender, +BS x4 Ext: no clubbing/cyanosis/edema Neuro: Alert. Answering questions appropriately. Follows commands and moves extremities Discharge Plan Patient/Caregiver Discharge Instructions Activity: increase activity as tolerated Diet: Regular Diet Prescriptions: Continued albuterol sulfate 90 mcg/actuation HFA aerosol inhaler 2 puff INHALATION Q6H PRN (Reason: for cough wheeze or shortness of breath) Qty: 18 RF: 12 phenytoin sodium extended 100 mg capsule See Rx Instructions PO .COMPLEX Qty: 60 RF: 12 duloxetine 60 mg capsule,delayed release(DR/EC) 60 mg PO QDAY Qty: 30 RF: 12 gemfibrozil 600 mg tablet 600 mg PO BID Qty: 60 RF: 12 oxybutynin chloride 10 mg tablet extended release 24hr 10 mg PO QDAY Qty: 30 RF: 12 omeprazole 40 mg capsule,delayed release(DR/EC) 40 mg PO ACB Qty: 90 RF: 3 carvedilol 12.5 mg tablet 12.5 mg PO BID Qty: 60 RF: 12 sitagliptin [Januvia] 100 mg tablet 100 mg PO QDAY Qty: 90 RF: 3 nortriptyline 25 mg capsule 50 mg PO QHS RF: 0 metformin 850 mg tablet 500 mg PO BID RF: 0 buspirone 5 mg tablet 7.5 mg PO BID RF: 0 olanzapine 10 mg tablet 10 mg PO QHS RF: 0 meclizine 12.5 mg tablet 12.5 mg PO TID RF: 0 No Action (DME) lancets [TRUEplus Lancets] 28 gauge misc See Dose Instructions .ROUTE .MEDSUPPLY Qty: 400 RF: 3 (DME) blood-glucose meter [True Metrix Glucose Meter] misc See Dose Instructions .ROUTE .MEDSUPPLY Qty: 1 RF: 0 (DME) blood sugar diagnostic [True Metrix Glucose Test Strip] strip See Dose Instructions .ROUTE .MEDSUPPLY Qty: 100 RF: 3 Other Ambulatory Orders: OT Discharge Order (Routine) Facility: [facility] - Location: [facility] Ordered By: Errol Boyd Physical Therapy at Discharge - General (Routine) Facility: [facility] - Location: Con[facility] Ordered By: Errol Boyd Follow Up Plan Follow up with: Gabino Winn MD [Physician] - (follow up at wound clinic as new patient if right lateral ankle wound is not healed in 2 weeks.) Cali Herron MD [Primary Care Provider] - Patient Disposition: Xfer SNF Prognosis: Serious Rehab Potential: Good I certify that the patient requires SNF services: Yes Overall status at discharge: patient is back to baseline Discharge Orders: Discharge Order (Routine); Ordered 03/11/21 Ordered By: Errol Boyd QUALITY VTE Deep Vein Thrombosis/Pulmonary Embolism Present on Admission: No
== END 2021-03-11 16:15 | DRG 71 ==
LOC: ED 20:42 → ICU 03-08 01:37
PROVIDERS: ADMIT Internal Medicine; ATTEND Internal Medicine

== ENCOUNTER 2021-07-03 11:44 | Inpatient (IN) ==
[2021-07-03] MEDS ORDERED: 0.9 % SODIUM CHLORIDE 1,000 ML IV ONE ×2 (11:51→14:19)
[2021-07-03] MEDS ORDERED: DIPH,PERTUSS(ACELL),TET VAC/PF 0.5 ML SYRINGE IM ONE (11:54)
--- NOTE | 2021-07-03 12:03 | Emergency Department Note ---
Fall HPI General Chief Complaint: Fall Stated Complaint: fall Time Seen by Provider: 07/03/21 11:51 Source: patient, family, EMS, RN notes reviewed and old records reviewed Mode of arrival: ambulatory Limitations: altered mental status History of Present Illness HPI Narrative: Narrative: 70-year-old female was found on floor covered in urine confused. Last seen normal was approximately 2 days ago according to family members reported to EMS. Patient is confused she knows her name she knows where she is at she cannot recall any of the event of her fall. She can direct me to what is painful on her body right now. Review of past medical record reveals similar presentation with rhabdomyolysis in the past. History is mostly from EMS and review of past medical records MD Complaint: fall Onset (ago): day(s) (2) Fall Witnessed: no Place Fall Occurred: home Loss of Consciousness: unsure Prolonged Down Time?: yes Location of injury: face (Left eyebrow laceration), neck (Neck tender to palpation), chest (Right chest wall bruise) and pelvis (Bilateral hips tender with range of motion) Quality: aching Associated symptoms (after fall): Reports neck pain and confusion Related Data Home Medications Medication Instructions Recorded Confirmed buspirone 7.5 mg PO BID 03/08/21 03/08/21 meclizine 12.5 mg PO TID 03/08/21 03/08/21 metformin 500 mg PO BID 03/08/21 03/08/21 nortriptyline 50 mg PO QHS 03/08/21 03/08/21 olanzapine 10 mg PO QHS 03/08/21 03/08/21 Previous Rx's Medication Instructions Recorded albuterol sulfate 90 mcg/actuation 2 puff INHALATION Q6H PRN #18 g 08/04/16 aerosol inhaler TRUEplus Lancets 28 gauge #400 each NS 09/26/17 True Metrix Glucose Meter #1 each NS 09/26/17 sitagliptin 100 mg tablet 100 mg PO QDAY #90 tab 11/28/17 phenytoin sodium extended 100 mg See Rx Instructions PO .COMPLEX 12/01/17 capsule #60 cap duloxetine 60 mg capsule,delayed 60 mg PO QDAY #30 cap 12/21/17 release gemfibrozil 600 mg tablet 600 mg PO BID #60 tab 12/21/17 oxybutynin chloride 10 mg 10 mg PO QDAY #30 tab 01/23/18 tablet,extended release 24 hr omeprazole 40 mg capsule,delayed 40 mg PO ACB #90 cap 03/27/18 release True Metrix Glucose Test Strip #100 each NS 05/29/18 carvedilol 12.5 mg tablet 12.5 mg PO BID #60 tab 07/06/18 Allergies Allergy/AdvReac Type Severity Reaction Status Date / Time ciprofloxacin [From Cipro] Allergy Mild Hives Verified 03/09/21 06:53 Penicillins Allergy Mild Hives Verified 03/09/21 06:53 sulfamethoxazole Allergy Mild Hives Verified 03/09/21 06:53 [From Septra] trimethoprim [From Septra] Allergy Mild Hives Verified 03/10/21 06:55 azithromycin Allergy Unknown Unknown Verified 02/17/21 18:34 cefuroxime [From Ceftin] AdvReac Mild Diarrhea Verified 03/09/21 06:53 tetracycline [Tetracycline] AdvReac Unknown Unknown Verified 02/17/21 18:34 Review of Systems ROS ROS Narrative: Narrative: All systems ED: reviewed and negative except as stated. PFSH Narrative Patient History Narrative: Narrative: Medical/Surgical/Family History All Active Problems (Updated 07/03/21 @ 15:40 by Dimitri Corona MD) Acute dehydration (Acute) Acute UTI (urinary tract infection) (Acute) Abrasion of ankle without infection (Acute) Pressure sore on ankle (Acute) Diabetic keto-acidosis (Acute) Acute alteration in mental status (Acute) Hypokalemia (Acute) Metabolic acidosis (Acute) Diabetes mellitus type 2 in nonobese (Chronic) Excessive cerumen in both ear canals (Acute) Mental status change (Acute) Confusion (Acute) Paranoid ideation (Acute) Bacterial cystitis (Acute) Rhabdomyolysis (Acute) Metabolic acidosis (Acute) Delusions (Acute) GERD (gastroesophageal reflux disease) (Chronic) Diabetes mellitus type 2 in nonobese (Chronic) Pyelonephritis (Acute) Decubitus Ulcer (Acute) Paronychia of finger of left hand (Acute) Diarrhea of presumed infectious origin (Chronic) Decubitus Ulcer (Acute) Diarrhea due to drug (Acute) Trigger finger, acquired (Chronic) Schizophrenia (Chronic) Menopausal syndrome (Chronic) Hypertension, essential (Chronic) Hyperlipemia (Chronic) Depressive disorder (Chronic) Medical History (Updated 07/03/21 @ 15:40 by Dimitri Corona MD) Acute bronchitis Decubitus ulcer of buttock, stage 2 Depressive disorder recurrent, recent grief reaction from brother's Hyperlipemia Hypertension, essential Impacted cerumen Menopausal syndrome Menopausal-Postmenopausal Disorder NOS Neck sprain and strain Postmenopausal related mood disorder Repetitive strain injury of lower back Schizophrenia Unspec/Chronic Trigger finger, acquired Type 2 diabetes mellitus Surgical History History of colonoscopy (04/04/18) No history of previous surgery Family History Unknown Diabetes mellitus Cardiac disease Malignant neoplasm colon cancer Presence of cardiac pacemaker Father Cerebrovascular accident, Onset Age: 80 Malignant neoplasm of colon Family/Other Malignant neoplasm of colon uncle Social History Smoking Status: Never smoker Alcohol Intake Frequency: holiday/special occasion only Exam Narrative Narrative: Narrative: General Limitations: altered mental status General appearance: Present alert, in distress and obese Head Head: Present atraumatic, normocephalic and normal inspection Eye Eye: Present PERRL, EOMI, periorbital swelling (Left eyebrow) and periorbital tenderness ENT ENT: Present normal exam and mucous membranes dry Neck Neck: Present normal inspection, trachea midline and tenderness; Absent lymphadenopathy Chest Chest: Present normal inspection and tenderness (Bruise to right anterior superior chest wall) Respiratory Respiratory: Present normal lung sounds bilaterally; Absent respiratory distress Cardiovascular Cardiovascular: Present regular rate, normal rhythm and systolic murmur Adbominal Abdominal: Present soft; Absent distention, tenderness, guarding and rebound Extremities Extremities: Present normal inspection, full ROM, tenderness (Tenderness with range of motion of bilateral hips) and normal capillary refill; Absent pedal edema and pretibial edema Back Back: Present normal inspection and full ROM; Absent tenderness, CVA tenderness (R), CVA tenderness (L), L-S tenderness, muscle spasm, paraspinal tenderness and spinous process tenderness Neurological Neurological: Present alert Psychiatric Psychiatric: Present agitated and anxious Skin Skin: Present warm (WNL); Absent rash Course Vital Signs Vital signs: Vital Signs Temperature 97.8 F 07/03/21 11:45 Pulse Rate 87 07/03/21 11:45 Respiratory Rate 18 07/03/21 11:45 Blood Pressure 136/82 07/03/21 11:45 Pulse Oximetry (%) 96 07/03/21 11:45 Temperature 97.8 F 07/03/21 11:45 Pulse Rate 95 H 07/03/21 16:45 Respiratory Rate 19 07/03/21 16:45 Blood Pressure 118/62 07/03/21 16:45 Pulse Oximetry (%) 97 07/03/21 16:45 MDM MDM Narrative Medical decision making narrative: Narrative: 70-year-old female who fell CK is marginally elevated and is trending downward with IV fluids her sodium is actually a little bit with the IV fluids and BUN and creatinine are holding stable as is elevated and. Patient is treated with Rocephin for her UTI Differential Diagnosis Differential Diagnosis: Closed head injury, cervical spine injury, bleed, rhabdomyolysis, infection Medical Records Medical records reviewed: Yes I reviewed the patient's medical records. Lab Data Lab results reviewed: Yes I reviewed the patient's lab results. Result diagrams: 07/03/21 12:35 07/03/21 14:40 Labs: Lab Results 07/03/21 07/03/21 07/03/21 Range/Units 11:28 11:28 12:35 WBC 9.2 (4.5-11.0) K/mcL RBC 3.57 L (3.59-5.38) M/mcL Hgb 11.5 (11.2-15.7) g/dL Hct 34.4 (34.1-44.9) % MCV 96.4 (80.0-100.0) fL MCH 32.2 (26.0-34.0) pg MCHC 33.4 (31.0-36.0) g/dL RDW 14.6 H (11.5-14.5) % Plt Count 127 L (140-440) K/mcL MPV 9.9 (7.4-10.4) fL Neut % (Auto) 90.0 H (38.0-78.0) % Lymph % (Auto) 3.5 L (15.5-49.0) % [place] % (Auto) 5.4 (1.0-12.0) % Eos % (Auto) 0.1 (0.0-7.0) % Baso % (Auto) 1.0 (0.0-2.0) % Lymph # (Auto) 0.32 L (1.50-4.80) K/mcL [place] # (Auto) 0.50 (0.10-0.90) K/mcL Eos # (Auto) 0.01 (0.00-0.70) K/mcL Baso # (Auto) 0.09 (0.00-0.30) K/mcL Absolute Neutrophils 8.29 H (1.80-8.00) K/mcL VBG Lactic Acid (0.5-2.0) mmol/L Sodium (133-145) mmol/L Potassium (3.3-5.1) mmol/L Chloride (96-108) mmol/L Carbon Dioxide (22-30) mmol/L Anion Gap (8.0-16.0) BUN (8-23) mg/dL Creatinine (0.6-1.1) mg/dL GFR Calculation Glucose (70-105) mg/dL Calcium (8.6-10.4) mg/dL Total Bilirubin (0.1-1.0) mg/dL AST (<32) U/L ALT (<40) U/L Alkaline Phosphatase (39-117) U/L Total Creatine Kinase (24-170) U/L Total Protein (5.9-8.4) gm/dL Albumin (3.2-5.2) gm/dL Globulin (2.2-3.7) gm/dL Albumin/Globulin Ratio (1.0-2.3) Prolactin 11.6 (4.8-23.3) ng/mL Urine Color Urine Appearance (Clear) Urine pH (5.0-9.0) Ur Specific [place] (1.000-1.035) Urine Protein (Negative) mg/dL Urine Glucose (UA) (Negative) mg/dL Urine Ketones (Negative) mg/dL Urine Occult Blood (Negative) mg/dL Urine Nitrate (Negative) Urine Bilirubin (Negative) mg/dL Urine Urobilinogen mg/dL Ur Leukocyte Esterase (Negative) /uL Urine RBC (0-3) /hpf Urine WBC (0-4) /hpf Ur Squamous Epith Cells (0-4) /hpf Urine Bacteria (0) /hpf Urine Mucus (None) /hpf Ur Culture Indicated? Phenytoin < 0.8 ug/mL 07/03/21 07/03/21 07/03/21 Range/Units 12:35 12:35 12:35 WBC (4.5-11.0) K/mcL RBC (3.59-5.38) M/mcL Hgb (11.2-15.7) g/dL Hct (34.1-44.9) % MCV (80.0-100.0) fL MCH (26.0-34.0) pg MCHC (31.0-36.0) g/dL RDW (11.5-14.5) % Plt Count (140-440) K/mcL MPV (7.4-10.4) fL Neut % (Auto) (38.0-78.0) % Lymph % (Auto) (15.5-49.0) % [place] % (Auto) (1.0-12.0) % Eos % (Auto) (0.0-7.0) % Baso % (Auto) (0.0-2.0) % Lymph # (Auto) (1.50-4.80) K/mcL [place] # (Auto) (0.10-0.90) K/mcL Eos # (Auto) (0.00-0.70) K/mcL Baso # (Auto) (0.00-0.30) K/mcL Absolute Neutrophils (1.80-8.00) K/mcL VBG Lactic Acid 1.1 (0.5-2.0) mmol/L Sodium 144 (133-145) mmol/L Potassium 3.9 (3.3-5.1) mmol/L Chloride 109 H (96-108) mmol/L Carbon Dioxide 13 L (22-30) mmol/L Anion Gap 22.0 H (8.0-16.0) BUN 66 H (8-23) mg/dL Creatinine 1.2 H (0.6-1.1) mg/dL GFR Calculation 46 Glucose 149 H (70-105) mg/dL Calcium 10.1 (8.6-10.4) mg/dL Total Bilirubin 0.3 (0.1-1.0) mg/dL AST 30 (<32) U/L ALT 18 (<40) U/L Alkaline Phosphatase 199 H (39-117) U/L Total Creatine Kinase 557 H (24-170) U/L Total Protein 7.2 (5.9-8.4) gm/dL Albumin 3.3 (3.2-5.2) gm/dL Globulin 3.9 H (2.2-3.7) gm/dL Albumin/Globulin Ratio 0.8 L (1.0-2.3) Prolactin (4.8-23.3) ng/mL Urine Color Urine Appearance (Clear) Urine pH (5.0-9.0) Ur Specific [place] (1.000-1.035) Urine Protein (Negative) mg/dL Urine Glucose (UA) (Negative) mg/dL Urine Ketones (Negative) mg/dL Urine Occult Blood (Negative) mg/dL Urine Nitrate (Negative) Urine Bilirubin (Negative) mg/dL Urine Urobilinogen mg/dL Ur Leukocyte Esterase (Negative) /uL Urine RBC (0-3) /hpf Urine WBC (0-4) /hpf Ur Squamous Epith Cells (0-4) /hpf Urine Bacteria (0) /hpf Urine Mucus (None) /hpf Ur Culture Indicated? Phenytoin 1.1 ug/mL 07/03/21 07/03/21 Range/Units 13:03 14:40 WBC (4.5-11.0) K/mcL RBC (3.59-5.38) M/mcL Hgb (11.2-15.7) g/dL Hct (34.1-44.9) % MCV (80.0-100.0) fL MCH (26.0-34.0) pg MCHC (31.0-36.0) g/dL RDW (11.5-14.5) % Plt Count (140-440) K/mcL MPV (7.4-10.4) fL Neut % (Auto) (38.0-78.0) % Lymph % (Auto) (15.5-49.0) % [place] % (Auto) (1.0-12.0) % Eos % (Auto) (0.0-7.0) % Baso % (Auto) (0.0-2.0) % Lymph # (Auto) (1.50-4.80) K/mcL [place] # (Auto) (0.10-0.90) K/mcL Eos # (Auto) (0.00-0.70) K/mcL Baso # (Auto) (0.00-0.30) K/mcL Absolute Neutrophils (1.80-8.00) K/mcL VBG Lactic Acid (0.5-2.0) mmol/L Sodium 148 H (133-145) mmol/L Potassium 3.4 (3.3-5.1) mmol/L Chloride 113 H (96-108) mmol/L Carbon Dioxide 13 L (22-30) mmol/L Anion Gap 22.0 H (8.0-16.0) BUN 72 H (8-23) mg/dL Creatinine 1.2 H (0.6-1.1) mg/dL GFR Calculation 46 Glucose 152 H (70-105) mg/dL Calcium 9.6 (8.6-10.4) mg/dL Total Bilirubin (0.1-1.0) mg/dL AST (<32) U/L ALT (<40) U/L Alkaline Phosphatase (39-117) U/L Total Creatine Kinase 548 H (24-170) U/L Total Protein (5.9-8.4) gm/dL Albumin (3.2-5.2) gm/dL Globulin (2.2-3.7) gm/dL Albumin/Globulin Ratio (1.0-2.3) Prolactin (4.8-23.3) ng/mL Urine Color Yellow Urine Appearance Hazy A (Clear) Urine pH 5.0 (5.0-9.0) Ur Specific [place] 1.015 (1.000-1.035) Urine Protein 100 A (Negative) mg/dL Urine Glucose (UA) Negative (Negative) mg/dL Urine Ketones 20 A (Negative) mg/dL Urine Occult Blood 0.20 (Negative) mg/dL Urine Nitrate Negative (Negative) Urine Bilirubin Negative (Negative) mg/dL Urine Urobilinogen Negative mg/dL Ur Leukocyte Esterase 75 A (Negative) /uL Urine RBC 1 (0-3) /hpf Urine WBC 15 H (0-4) /hpf Ur Squamous Epith Cells < 1 (0-4) /hpf Urine Bacteria None (0) /hpf Urine Mucus Many A (None) /hpf Ur Culture Indicated? yes Phenytoin ug/mL ED POC Tests ED POC Tests: RADHA - SARS Antigen Negative Radiology Data Radiology results reviewed: Yes I reviewed the patient's radiology results. Radiology results narrative: Head CT IMPRESSION: Mild atrophy and chronic ischemic changes in the deep cerebral white matter-expected for age. No acute findings Maxillofacial CT IMPRESSION: No fracture or other posttraumatic change Moderate calcific plaque in both carotid bifurcations. Consider carotid Doppler exam evaluate for stenosis Cervical spine CT impression multilevel degeneration. At C5-6 and C6-7, significant left lateral recess and IV foraminal narrowing results in exiting left C6 and left C7 nerve root impingement. Please correlate with left upper extremity radiculopathy. No change from prior exam Chest x-ray and hip x-rays are NAD EKG Data EKG #1: EKG attestation: Yes I reviewed and interpreted this EKG. and Yes There are no EKG findings of acute coronary syndrome EKG shows normal: sinus rhythm Rate: normal (88) [place]/QRS: IVCD Interpretation: nonspecific ST-T wave changes (Diffuse artifact noted) Pulse Oximetry Data Pulse Ox %: 100 Interpretation: 100% on room air is within normal limits Discharge Plan Patient/Caregiver Discharge Instructions Pt seen by [employer]/PA only: No Clinical Impression: Acute dehydration, Acute UTI (urinary tract infection), Metabolic acidosis Rhabdomyolysis Qualifiers: Rhabdomyolysis type: traumatic Encounter type: initial encounter Qualified Code(s): T79.6XXA - Traumatic ischemia of muscle, initial encounter Patient Disposition: Xfer As Inpt ([facility]) Follow up with: Cali Herron MD [Primary Care Provider] - Prescriptions: No Action albuterol sulfate 90 mcg/actuation HFA aerosol inhaler 2 puff INHALATION Q6H PRN (Reason: for cough wheeze or shortness of breath) Qty: 18 RF: 12 (DME) lancets [TRUEplus Lancets] 28 gauge misc See Dose Instructions .ROUTE .MEDSUPPLY Qty: 400 RF: 3 (DME) blood-glucose meter [True Metrix Glucose Meter] misc See Dose Instructions .ROUTE .MEDSUPPLY Qty: 1 RF: 0 phenytoin sodium extended 100 mg capsule See Rx Instructions PO .COMPLEX Qty: 60 RF: 12 duloxetine 60 mg capsule,delayed release(DR/EC) 60 mg PO QDAY Qty: 30 RF: 12 gemfibrozil 600 mg tablet 600 mg PO BID Qty: 60 RF: 12 oxybutynin chloride 10 mg tablet extended release 24hr 10 mg PO QDAY Qty: 30 RF: 12 omeprazole 40 mg capsule,delayed release(DR/EC) 40 mg PO ACB Qty: 90 RF: 3 carvedilol 12.5 mg tablet 12.5 mg PO BID Qty: 60 RF: 12 sitagliptin [Januvia] 100 mg tablet 100 mg PO QDAY Qty: 90 RF: 3 (DME) blood sugar diagnostic [True Metrix Glucose Test Strip] strip See Dose Instructions .ROUTE .MEDSUPPLY Qty: 100 RF: 3 nortriptyline 25 mg capsule 50 mg PO QHS RF: 0 metformin 850 mg tablet 500 mg PO BID RF: 0 buspirone 5 mg tablet 7.5 mg PO BID RF: 0 olanzapine 10 mg tablet 10 mg PO QHS RF: 0 meclizine 12.5 mg tablet 12.5 mg PO TID RF: 0
--- NOTE | 2021-07-03 12:29 | Cat Scan Report ---
CLINICAL INFORMATION: Trauma-fall COMPARISON: 03/07/2021 TECHNIQUE: 2.5 mm helical slices were obtained in the skull base to vertex. Following reconstruction, axial reformatted images were reviewed at bone and parenchymal windows. The exam was performed using radiation dose optimization techniques including, but not limited to, automated exposure control, adjustment of the mA and/or kV according to patient size and use of iterative reconstruction technique. FINDINGS: The ventricles, sulci, fissures, and cisterns are symmetrically enlarged compatible with mild age-related atrophy. No extra-axial fluid collections are identified. Mild patchy chronic ischemic changes, in the deep cerebral white matter, are expected for age. There is no hemorrhage, mass effect, or edema. Bone windows show no osseous abnormality. IMPRESSION: Mild atrophy and chronic ischemic changes in the deep cerebral white matter-expected for age. No acute findings Interpreted and Authenticated by: Zach Tang 07/03/21
--- NOTE | 2021-07-03 12:33 | Cat Scan Report ---
CLINICAL INFORMATION: Trauma COMPARISON: Cervical spine CT 03/07/2021. TECHNIQUE: 0.625 mm helical slices were obtained from the skull base through the superior T2 end plate, and following reconstruction, 2.5 mm sagittal, coronal and axial reformations were then processed. The exam was reviewed at bone and soft tissue windows. The exam was performed using radiation dose optimization techniques including, but not limited to, automated exposure control, adjustment of the mA and/or kV according to patient size and use of iterative reconstruction technique. FINDINGS: The sagittal reformatted images show the cervical spine is anatomically aligned. There is no fracture or other osseous abnormality. The cervical cord is normal in contour and caliber without hemorrhage or other abnormality. Multinodular thyroid adenoma is stable. Small amount of calcific plaque present in the carotid bifurcations. No other soft tissue abnormalities. Lung apices are normal. The C2-3 and C3-4 disc levels are normal. At C4-5, mild broad disc protrusion mildly impinges the anterior thecal sac. At C5-6, moderate broad disc protrusion left-sided asymmetry results in moderate left lateral recess narrowing. There is impingement of the exiting left C6 nerve root. Mild central canal narrowing noted. At C6-7, moderate broad disc protrusion with left-sided asymmetry results in severe left lateral recess/ IV foraminal narrowing with impingement of the exiting left C7 nerve root. Mild central canal narrowing The C7-T1 disc level is normal IMPRESSION: No fracture or posttraumatic change. Multilevel degeneration. At C5-6 and C6-7, significant left lateral recess and IV foraminal narrowing results in exiting left C6 and left C7 nerve root impingement. Please correlate with left upper extremity radiculopathy. No change from prior exam Interpreted and Authenticated by: aZch Tang 07/03/21
--- NOTE | 2021-07-03 12:38 | Cat Scan Report ---
CLINICAL INFORMATION: Trauma-fall COMPARISON: None. TECHNIQUE: 0.625 mm axial slices were obtained through the facial region. Following reconstruction, 2.5 millimeter axial, sagittal and coronal reformations were obtained and reviewed in bone and soft tissue windows.The exam was performed using radiation dose optimization techniques including, but not limited to, automated exposure control, adjustment of the mA and/or kV according to patient size and use of iterative reconstruction technique. FINDINGS: No fracture or other osseous abnormalities facial skeleton or visualized calvaria. The paranasal sinuses and nasal region are clear. Both orbital regions including the ocular globes, optic nerves, throughout and extraconal fat and extraocular muscles are normal. Petrous temporal regions show no abnormality. Both TMJs are normal and symmetric in width and alignment. There is moderate calcific plaque in both carotid bifurcation. No other soft tissue abnormality. IMPRESSION: No fracture or other posttraumatic change Moderate calcific plaque in both carotid bifurcations. Consider carotid Doppler exam evaluate for stenosis Interpreted and Authenticated by: Zach Tang 07/03/21
--- NOTE | 2021-07-03 12:40 | XRay Report ---
CLINICAL INFORMATION: Trauma-fall COMPARISON: 03/07/2021. TECHNIQUE: Portable FINDINGS: The heart size, mediastinum and pulmonary vessels are unremarkable. The lungs are clear. There are no effusions. The bones and soft tissues are within normal limits. IMPRESSION: Normal chest. Interpreted and Authenticated by: Zach Tang 07/03/21
--- NOTE | 2021-07-03 12:41 | XRay Report ---
CLINICAL INFORMATION: Fall-trauma COMPARISON: 02/07/2021 FINDINGS: Sacroiliac and hip joints are normal in width and alignment without arthritic change. There is no fracture or osseous abnormality. Soft tissues are unremarkable. IMPRESSION: Normal exam. Interpreted and Authenticated by: Zach Tang 07/03/21
[2021-07-03 14:00] LABS: Basophils # (Auto) 0.09 K/mcL (0.00-0.30); Eosinophils # (Auto) 0.01 K/mcL (0.00-0.70); Eosinophils % (Auto) 0.1 % (0.0-7.0); Hematocrit 34.4 % (34.1-44.9); Hemoglobin 11.5 g/dL (11.2-15.7); Lymphocytes # (Auto) 0.32 K/mcL (1.50-4.80); Lymphocytes % (Auto) 3.5 % (15.5-49.0); Mean Cell Volume 96.4 fL (80.0-100.0); Mean Corpuscular HGB Conc 33.4 g/dL (31.0-36.0); Mean Platelet Volume 9.9 fL (7.4-10.4); Monocytes % (Auto) 5.4 % (1.0-12.0); Platelet Count 127 K/mcL (140-440); RBC 3.57 M/mcL (3.59-5.38); Red Cell Distribution Width 14.6 % (11.5-14.5); WBC 9.2 K/mcL (4.5-11.0)
[2021-07-03 14:04] LABS: ALT/SGPT 18 U/L (<40); AST/SGOT 30 U/L (<32); Albumin 3.3 gm/dL (3.2-5.2); Albumin/Globulin Ratio 0.8 (1.0-2.3); Alkaline Phosphatase 199 U/L (39-117); Bilirubin,Total 0.3 mg/dL (0.1-1.0); Blood Urea Nitrogen 66 mg/dL (8-23); Calcium 10.1 mg/dL (8.6-10.4); Carbon Dioxide 13 mmol/L (22-30); Chloride 109 mmol/L (96-108); Creatine Kinase 557 U/L (24-170); Dilantin Test 1.1 ug/mL; Globulin 3.9 gm/dL (2.2-3.7); Glomerular Filtration Rate 46; Glucose 149 mg/dL (70-105)
[2021-07-03 14:13] LABS: Appearance,Urine HAZY (Clear); Bilirubin,Urine Negative (Negative); Color,Urine YELLOW; Culture Indicated,Urine yes; Glucose,Urine (UA) Negative (Negative); Ketones,Urine 20 mg/dL (Negative); Leukocyte Esterase,Urine 75 /uL (Negative); Mucus,Urine MANY /hpf; Nitrate,Urine Negative (Negative); Protein,Urine 100 mg/dL (Negative); Specific Gravity,Urine 1.015 (1.000-1.035); Urine RBC 1 /hpf (0-3); Urine Squamous Epithelial Cell < 1 /hpf (0-4); Urine WBC 15 /hpf (0-4); Urobilinogen,Urine Negative
[2021-07-03] MEDS ORDERED: cefTRIAXone 1 GM VIAL IV ONE (15:20)
[2021-07-03] MEDS ORDERED: diphenhydrAMINE 50 MG/ML VIAL IV ONE (15:21)
[2021-07-03 15:36] LABS: Blood Urea Nitrogen 72 mg/dL (8-23); Calcium 9.6 mg/dL (8.6-10.4); Carbon Dioxide 13 mmol/L (22-30); Chloride 113 mmol/L (96-108); Creatine Kinase 548 U/L (24-170); Glomerular Filtration Rate 46; Glucose 152 mg/dL (70-105)
--- NOTE | 2021-07-03 16:33 | Internal Med History&Physical ---
HPI History of Present Illness Patient information: Note initiated : 07/03/21 at 4:21 pm Service Date, if different from initiated Date: [] Patient: Bibi Murrell a 70 y/o F admitted on for fall. Chief Complaint: [] History of present illness: Ms. Murrell is a 70 year old F History obtained from chart as patient is a poor historian and could not give me much information. Per the report patient was found on the floor covered in urine. Last seen normal 2 days prior by family members. Patient confused. She is aware of her name and that she is in the hospital but could not give any course of events or answer any other questions with clarity. In the ED she was found to have elevated sodium elevated BUN/creatinine ratio mildly elevated CK. Urine concerning for infection. Concern for sepsis in the ED. She has had several hospitalizations since 2017 at our similar presentation. She also has a history of epilepsy as well as schizophrenia and perhaps she had a seizure. She did say to me during the course of my interview that she did not take her new medication but I was unable to ascertain who prescribed it to her and what the name of the medication was or what it was for -she cannot give me any details. Review of systems: Unable to gather as patient is altered [facility] All Active Problems (Updated 07/03/21 @ 15:40 by Dimitri Corona MD) Acute dehydration (Acute) Acute UTI (urinary tract infection) (Acute) Abrasion of ankle without infection (Acute) Pressure sore on ankle (Acute) Diabetic keto-acidosis (Acute) Acute alteration in mental status (Acute) Hypokalemia (Acute) Metabolic acidosis (Acute) Diabetes mellitus type 2 in nonobese (Chronic) Excessive cerumen in both ear canals (Acute) Mental status change (Acute) Confusion (Acute) Paranoid ideation (Acute) Bacterial cystitis (Acute) Rhabdomyolysis (Acute) Metabolic acidosis (Acute) Delusions (Acute) GERD (gastroesophageal reflux disease) (Chronic) Diabetes mellitus type 2 in nonobese (Chronic) Pyelonephritis (Acute) Decubitus Ulcer (Acute) Paronychia of finger of left hand (Acute) Diarrhea of presumed infectious origin (Chronic) Decubitus Ulcer (Acute) Diarrhea due to drug (Acute) Trigger finger, acquired (Chronic) Schizophrenia (Chronic) Menopausal syndrome (Chronic) Hypertension, essential (Chronic) Hyperlipemia (Chronic) Depressive disorder (Chronic) Medical History (Updated 07/03/21 @ 15:40 by Dimitri Corona MD) Acute bronchitis Decubitus ulcer of buttock, stage 2 Depressive disorder recurrent, recent grief reaction from brother's Hyperlipemia Hypertension, essential Impacted cerumen Menopausal syndrome Menopausal-Postmenopausal Disorder NOS Neck sprain and strain Postmenopausal related mood disorder Repetitive strain injury of lower back Schizophrenia Unspec/Chronic Trigger finger, acquired Type 2 diabetes mellitus Surgical History History of colonoscopy (04/04/18) No history of previous surgery Family History Unknown Diabetes mellitus Cardiac disease Malignant neoplasm colon cancer Presence of cardiac pacemaker Father Cerebrovascular accident, Onset Age: 80 Malignant neoplasm of colon Family/Other Malignant neoplasm of colon uncle Social History (Updated 08/28/18 @ 10:28 by Cali Herron MD) household members: alone lives independently: Yes marital status: single alcohol intake frequency: holiday/special occasion only MEDS/ALLERGIES Home Medications and Allergies Home Medications Medication Instructions Recorded Confirmed Type albuterol sulfate 90 mcg/actuation 2 puff INHALATION Q6H PRN #18 g 08/04/16 07/03/21 Rx aerosol inhaler TRUEplus Lancets 28 gauge #400 each NS 09/26/17 07/03/21 Rx True Metrix Glucose Meter #1 each NS 09/26/17 07/03/21 Rx sitagliptin 100 mg tablet 100 mg PO QDAY #90 tab 11/28/17 07/03/21 Rx phenytoin sodium extended 100 mg See Rx Instructions PO .COMPLEX 12/01/17 07/03/21 Rx capsule #60 cap duloxetine 60 mg capsule,delayed 60 mg PO QDAY #30 cap 12/21/17 07/03/21 Rx release gemfibrozil 600 mg tablet 600 mg PO BID #60 tab 12/21/17 07/03/21 Rx oxybutynin chloride 10 mg 10 mg PO QDAY #30 tab 01/23/18 07/03/21 Rx tablet,extended release 24 hr omeprazole 40 mg capsule,delayed 40 mg PO ACB #90 cap 03/27/18 07/03/21 Rx release True Metrix Glucose Test Strip #100 each NS 05/29/18 07/03/21 Rx carvedilol 12.5 mg tablet 12.5 mg PO BID #60 tab 07/06/18 07/03/21 Rx buspirone 7.5 mg PO BID 03/08/21 07/03/21 History meclizine 12.5 mg PO TID 03/08/21 07/03/21 History metformin 500 mg PO BID 03/08/21 07/03/21 History nortriptyline 50 mg PO QHS 03/08/21 07/03/21 History olanzapine 10 mg PO QHS 03/08/21 07/03/21 History Allergies Allergy/AdvReac Type Severity Reaction Status Date / Time ciprofloxacin [From Cipro] Allergy Mild Hives Verified 03/09/21 06:53 Penicillins Allergy Mild Hives Verified 03/09/21 06:53 sulfamethoxazole Allergy Mild Hives Verified 03/09/21 06:53 [From Septra] trimethoprim [From Septra] Allergy Mild Hives Verified 03/10/21 06:55 azithromycin Allergy Unknown Unknown Verified 02/17/21 18:34 cefuroxime [From Ceftin] AdvReac Mild Diarrhea Verified 03/09/21 06:53 tetracycline [Tetracycline] AdvReac Unknown Unknown Verified 02/17/21 18:34 EXAM Constitutional Vitals: Temp Pulse Resp BP Pulse Ox 97.8 F 94 H 14 123/71 97 07/03/21 11:45 07/03/21 16:01 07/03/21 16:01 07/03/21 16:01 07/03/21 16:01 Exam: General: Alert, Awake, No acute Distress Eyes/N/T: EOMI, PERRL, dry MM Head/Neck: neck supple, normocephalic atraumatic CV: RRR, No murmurs, normal s1/s2 Pulm: Clear b/l, no wheezing/rhonchi/rales Abd: soft, nontender, +BS x4 Ext: no clubbing/cyanosis/edema Neuro: Alert, no focal deficits, moves all extremities, CN 2-12 grossly intact, symmetrical strength b/l upper/lower, sensations intact b/l upper/lower. Oriented to place and name but unable to answer any other questions Skin: warm/dry DATA Data Completed and Pending Labs: Labs from last 24 hours 07/03/21 07/03/21 07/03/21 14:40 13:03 12:35 WBC RBC Hgb Hct MCV MCH MCHC RDW Plt Count MPV Neut % (Auto) Lymph % (Auto) [place] % (Auto) Eos % (Auto) Baso % (Auto) Lymph # (Auto) [place] # (Auto) Eos # (Auto) Baso # (Auto) Absolute Neutrophils VBG Lactic Acid Sodium 148 H Potassium 3.4 Chloride 113 H Carbon Dioxide 13 L Anion Gap 22.0 H BUN 72 H Creatinine 1.2 H GFR Calculation 46 Glucose 152 H Calcium 9.6 Total Bilirubin AST ALT Alkaline Phosphatase Total Creatine Kinase 548 H Total Protein Albumin Globulin Albumin/Globulin Ratio Prolactin Urine Color Yellow Urine Appearance Hazy A Urine pH 5.0 Ur Specific [place] 1.015 Urine Protein 100 A Urine Glucose (UA) Negative Urine Ketones 20 A Urine Occult Blood 0.20 Urine Nitrate Negative Urine Bilirubin Negative Urine Urobilinogen Negative Ur Leukocyte Esterase 75 A Urine RBC 1 Urine WBC 15 H Ur Squamous Epith Cells < 1 Urine Bacteria None Urine Mucus Many A Ur Culture Indicated? yes Phenytoin 1.1 07/03/21 07/03/21 07/03/21 12:35 12:35 12:35 WBC 9.2 RBC 3.57 L Hgb 11.5 Hct 34.4 MCV 96.4 MCH 32.2 MCHC 33.4 RDW 14.6 H Plt Count 127 L MPV 9.9 Neut % (Auto) 90.0 H Lymph % (Auto) 3.5 L [place] % (Auto) 5.4 Eos % (Auto) 0.1 Baso % (Auto) 1.0 Lymph # (Auto) 0.32 L [place] # (Auto) 0.50 Eos # (Auto) 0.01 Baso # (Auto) 0.09 Absolute Neutrophils 8.29 H VBG Lactic Acid 1.1 Sodium 144 Potassium 3.9 Chloride 109 H Carbon Dioxide 13 L Anion Gap 22.0 H BUN 66 H Creatinine 1.2 H GFR Calculation 46 Glucose 149 H Calcium 10.1 Total Bilirubin 0.3 AST 30 ALT 18 Alkaline Phosphatase 199 H Total Creatine Kinase 557 H Total Protein 7.2 Albumin 3.3 Globulin 3.9 H Albumin/Globulin Ratio 0.8 L Prolactin Urine Color Urine Appearance Urine pH Ur Specific [place] Urine Protein Urine Glucose (UA) Urine Ketones Urine Occult Blood Urine Nitrate Urine Bilirubin Urine Urobilinogen Ur Leukocyte Esterase Urine RBC Urine WBC Ur Squamous Epith Cells Urine Bacteria Urine Mucus Ur Culture Indicated? Phenytoin 07/03/21 07/03/21 11:28 11:28 WBC RBC Hgb Hct MCV MCH MCHC RDW Plt Count MPV Neut % (Auto) Lymph % (Auto) [place] % (Auto) Eos % (Auto) Baso % (Auto) Lymph # (Auto) [place] # (Auto) Eos # (Auto) Baso # (Auto) Absolute Neutrophils VBG Lactic Acid Sodium Potassium Chloride Carbon Dioxide Anion Gap BUN Creatinine GFR Calculation Glucose Calcium Total Bilirubin AST ALT Alkaline Phosphatase Total Creatine Kinase Total Protein Albumin Globulin Albumin/Globulin Ratio Prolactin Pending Urine Color Urine Appearance Urine pH Ur Specific [place] Urine Protein Urine Glucose (UA) Urine Ketones Urine Occult Blood Urine Nitrate Urine Bilirubin Urine Urobilinogen Ur Leukocyte Esterase Urine RBC Urine WBC Ur Squamous Epith Cells Urine Bacteria Urine Mucus Ur Culture Indicated? Phenytoin Pending A/P Narrative A/P Narrative: A: *Dehydration w/hypernatremia: *JANETH: *UTI: *Metabolic Encephalopathy: 2/2 above + underly psych vs MCI or early dementia *Likely starvation ketosis (h/o same): *AG Met acidosis: 2/2 above, possible that she had seizure as inciting event *Generalyzed weakness/deconditioning/fall: *Schizophrenia: *DM: *Hypomagnesemia/hypophosphatemia/hypokalemia: *HTN/HLD: *GERD: *h/o persistently elevated CPK on past/current labs: always attributed to fall or downtime, but could also be caused by seizure and also of note she is on gemfibrozil *h/o Sz d/o: on phenytoin *Diarrhea: none since admit P: -hypotonic IVF -Rocephin pending UC -check dilantin level, seizure precautions -check/replace electrolytes -SSI -cont psych meds -cont come BB -f/u cpk, d/c gemfibrozil and f/u with PCP -dietary consult - -PT/OT -CM for placement needs -ppx: lonvenox/home ppi Time Spent With Patient Time: Total time spent is greater than 50% in coordination of care (as documented) at patient's floor/unit and/or counseling patient:
[2021-07-03 16:50] LABS: Dilantin Test < 0.8 ug/mL
[2021-07-03] MEDS ORDERED: DEXTROSE 5% IN WATER 500 ML IV SCH (17:44)
[2021-07-03] MEDS ORDERED: DEXTROSE 50% 50 ML VIAL IV PRN (17:44)
[2021-07-03] MEDS ORDERED: POTASSIUM CHLORIDE 20 MEQ TABLET PO PRN ×2 (17:44)
[2021-07-03] MEDS ORDERED: DEXTROSE 31 GM ORAL.SUSP PO PRN (17:44)
[2021-07-03] MEDS ORDERED: ONDANSETRON 4 MG/2 ML VIAL IV PRN (17:44)
[2021-07-03] MEDS ORDERED: POLYETHYLENE GLYCOL 3350 17 GM PACKET PO PRN (17:44)
[2021-07-03] MEDS ORDERED: PHENYTOIN SOD 100 MG CAPSULE PO SCH (17:44)
[2021-07-03] MEDS ORDERED: MAGNESIUM SULFATE 2 GM/50 ML BAG IV PRN (17:44)
[2021-07-03] MEDS ORDERED: POTASSIUM CHLORIDE 40 MEQ in DEXTROSE 5% IN WATER 500 ML IV PRN (17:44)
[2021-07-03] MEDS ORDERED: LORazepam 2 MG/ML VIAL IV PRN (17:44)
[2021-07-03] MEDS ORDERED: METOCLOPRAMIDE 10 MG/2 ML VIAL IV PRN (17:44)
[2021-07-03] MEDS ORDERED: IPRATROPIUM/ALBUTEROL 3 ML AMPUL.NEB NEB PRN (17:44)
[2021-07-03] MEDS ORDERED: cefTRIAXone 1 GM in DEXTROSE 5% IN WATER 50 ML IV SCH (17:44)
[2021-07-03] MEDS: INSULIN LISPRO 1 UNIT/0.01 ML UNIT SQ SCH ×2 (17:54→22:15)
[2021-07-03 18:31] LABS: Phosphorous 3.8 mg/dL (2.5-4.5)
[2021-07-03] MEDS: 0.45 % SODIUM CHLORIDE 1,000 ML IV SCH (20:34)
[2021-07-03] MEDS: ACETAMINOPHEN 325 MG TABLET PO PRN (22:01)
[2021-07-03] MEDS: MECLIZINE 25 MG TABLET PO SCH (22:02)
[2021-07-03] MEDS: PHENYTOIN SOD 100 MG CAPSULE PO SCH (22:02)
[2021-07-03] MEDS: NORTRIPTYLINE 25 MG CAPSULE PO SCH (22:02)
[2021-07-03] MEDS: OLANZapine 5 MG TABLET PO SCH (22:03)
[2021-07-03] MEDS: busPIRone 5 MG TABLET PO SCH (22:03)
[2021-07-03] MEDS: 0.9 % SODIUM CHLORIDE 10 ML SYRINGE IV SCH (22:04)
[2021-07-03] MEDS: CARVEDILOL 12.5 MG TABLET PO SCH (22:15)
[2021-07-04] MEDS: 0.9 % SODIUM CHLORIDE 10 ML SYRINGE IV SCH ×3 (06:04→22:13)
[2021-07-04 07:54] LABS: Basophils # (Auto) 0.05 K/mcL (0.00-0.30); Basophils % (Auto) 0.7 % (0.0-2.0); Eosinophils # (Auto) 0.06 K/mcL (0.00-0.70); Eosinophils % (Auto) 0.9 % (0.0-7.0); Hematocrit 28.3 % (34.1-44.9); Hemoglobin 9.3 g/dL (11.2-15.7); Lymphocytes % (Auto) 4.5 % (15.5-49.0); Mean Cell Volume 97.3 fL (80.0-100.0); Mean Corpuscular HGB Conc 32.9 g/dL (31.0-36.0); Mean Platelet Volume 9.6 fL (7.4-10.4); Monocytes # (Auto) 0.39 K/mcL (0.10-0.90); Monocytes % (Auto) 5.8 % (1.0-12.0); Platelet Count 99 K/mcL (140-440); RBC 2.91 M/mcL (3.59-5.38); Red Cell Distribution Width 14.8 % (11.5-14.5); WBC 6.7 K/mcL (4.5-11.0)
[2021-07-04 07:59] LABS: ALT/SGPT 12 U/L (<40); AST/SGOT 16 U/L (<32); Albumin 2.5 gm/dL (3.2-5.2); Albumin/Globulin Ratio 0.8 (1.0-2.3); Alkaline Phosphatase 158 U/L (39-117); Bilirubin,Direct 0.2 mg/dL (<0.3); Bilirubin,Total 0.3 mg/dL (0.1-1.0); Blood Urea Nitrogen 57 mg/dL (8-23); Calcium 9.1 mg/dL (8.6-10.4); Carbon Dioxide 13 mmol/L (22-30); Chloride 112 mmol/L (96-108); Globulin 3.2 gm/dL (2.2-3.7); Glomerular Filtration Rate 51; Glucose 134 mg/dL (70-105); Lactate Dehydrogenase 270 U/L (135-225); Phosphorous 2.2 mg/dL (2.5-4.5); Triglycerides 308 mg/dL (<150); Uric Acid 11.1 mg/dL (2.5-8.0)
--- NOTE | 2021-07-04 08:09 | Internal Med Progress Note ---
SUBJECTIVE Subjective Patient information: Note initiated : 07/04/21 at 8:01 am Service Date, if different from initiated Date: [] Patient: Bibi Murrell a 70 y/o F admitted on 07/03/21 for fall. Chief Complaint: [] Interval history: History of present illness: Ms. Murrell is a 70 year old F History obtained from chart as patient is a poor historian and could not give me much information. Per the report patient was found on the floor covered in urine. Last seen normal 2 days prior by family members. Patient confused. She is aware of her name and that she is in the hospital but could not give any course of events or answer any other questions with clarity. In the ED she was found to have elevated sodium elevated BUN/creatinine ratio mildly elevated CK. Urine concerning for infection. Concern for sepsis in the ED. She has had several hospitalizations since 2017 at our similar presentation. She also has a history of epilepsy as well as schizophrenia and perhaps she had a seizure. She did say to me during the course of my interview that she did not take her new medication but I was unable to ascertain who prescribed it to her and what the name of the medication was or what it was for -she cannot give me any details. 07/04 Patient slept well per nursing staff. Patient confused. I suspect she may not have been taking her medications correctly, Dilantin level was quite low. CK improved, sodium within normal limits. Still acidotic. BUN/creatinine improved. Constitutional Vitals: Vital Signs Temp Pulse Resp BP Pulse Ox 98.6 F 77 17 118/49 97 07/04/21 04:01 07/04/21 04:01 07/04/21 04:01 07/04/21 04:01 07/04/21 04:01 Period Temp Pulse Resp BP Sys/Jessica Pulse Ox Last 24 Hr 96.9 F-98.6 F 69-112 14-29 82-136/41-107 96-100 Intake and Output 07/03/21 07/04/21 07/04/21 21:59 05:59 13:59 Intake Total 1000 500 Output Total 400 750 Balance 600 -250 Weight 69.49 kg Intake & Output: Intake & Output 07/03/21 07/04/21 07/04/21 21:59 05:59 13:59 Intake Total 1000 500 Output Total 400 750 Balance 600 -250 Weight 69.49 kg Intake: IV 1000 500 Sodium Chloride 0.9% 1,000 ml @ 1000 Wide Open IV BOLUS ONE Rx#: [id number] Dextrose 5% in Water 500 ml @ 500 200 mls/hr IV .Q2H30M [facility] Rx#: [id number] Output: Urine Catheter Amount 400 750 Other: Urine Appearance Cloudy Cloudy Sediment Sediment Mucous Threads Straight Cloudy Clear Sediment Mucous Threads Urine Color Pale Light [place]az Straight Pale Bright Yellow Urine Odor Strong Exam: General: Alert, Awake, No acute Distress Eyes/N/T: EOMI, Head/Neck: neck supple, CV: RRR, No murmurs, Pulm: Clear b/l, no wheezing/rhonchi/rales Abd: soft, nontender, +BS x4 Ext: no clubbing/cyanosis/edema Neuro: Alert, no focal deficits, moves all extremities, follows commands Skin: warm/dry Psych: disoriented OBJ DATA Labs CBC & Chem 7: 07/04/21 05:23 07/04/21 05:23 Labs: Abnormal Lab Results 07/04/21 07/04/21 07/03/21 05:23 05:23 14:40 RBC 2.91 L Hgb 9.3 L Hct 28.3 L RDW 14.8 H Plt Count 99 L Neut % (Auto) 88.1 H Lymph % (Auto) 4.5 L Lymph # (Auto) 0.30 L Absolute Neutrophils Sodium 148 H Chloride 112 H 113 H Carbon Dioxide 13 L 13 L Anion Gap 22.0 H BUN 57 H 72 H Creatinine 1.2 H Glucose 134 H 152 H Uric Acid 11.1 H Phosphorus 2.2 L Alkaline Phosphatase 158 H Lactate Dehydrogenase 270 H Total Creatine Kinase 548 H Total Protein 5.7 L Albumin 2.5 L Globulin Albumin/Globulin Ratio 0.8 L Triglycerides 308 H Urine Appearance Urine Protein Urine Ketones Ur Leukocyte Esterase Urine WBC Urine Mucus 07/03/21 07/03/21 07/03/21 13:03 12:35 12:35 RBC 3.57 L Hgb Hct RDW 14.6 H Plt Count 127 L Neut % (Auto) 90.0 H Lymph % (Auto) 3.5 L Lymph # (Auto) 0.32 L Absolute Neutrophils 8.29 H Sodium Chloride 109 H Carbon Dioxide 13 L Anion Gap 22.0 H BUN 66 H Creatinine 1.2 H Glucose 149 H Uric Acid Phosphorus Alkaline Phosphatase 199 H Lactate Dehydrogenase Total Creatine Kinase 557 H Total Protein Albumin Globulin 3.9 H Albumin/Globulin Ratio 0.8 L Triglycerides Urine Appearance Hazy A Urine Protein 100 A Urine Ketones 20 A Ur Leukocyte Esterase 75 A Urine WBC 15 H Urine Mucus Many A Meds: Medications Acetaminophen (Acetaminophen 325 Mg Tablet) 650 mg PO Q6HP PRN; Protocol PRN Reason: Per Pain Protocol/Fever > 101 Last Admin: 07/03/21 22:01 Dose: 650 mg Documented by: Albuterol/Ipratropium (Ipratropium/Albuterol 3 Ml Ampul.Neb) 3 ml NEB Q4HP PRN PRN Reason: Shortness Of Breath Buspirone HCl (Buspirone 5 Mg Tablet) 7.5 mg PO BID [facility] Last Admin: 07/03/21 22:03 Dose: 7.5 mg Documented by: Carvedilol (Carvedilol 12.5 Mg Tablet) [facility] Last Admin: 07/03/21 22:15 Dose: 12.5 mg Documented by: Ceftriaxone Sodium (Ceftriaxone 1 Gm Vial) 1 gm IV DAILY [facility] Dextrose (Dextrose 50% 50 Ml Vial) 0 ml IV UD PRN PRN Reason: Hypoglycemia Diagnostic Test (Pha) (Accu-Chek 1 Each Strip) 1 each FS ACHS [facility] Last Admin: 07/04/21 06:54 Dose: 1 each Documented by: Duloxetine HCl (Duloxetine 30 Mg Capsule) 60 mg PO DAILY [facility] Enoxaparin Sodium (Enoxaparin 40 Mg/0.4 Ml Syringe) 40 mg SQ DAILY [facility] Glucose (Dextrose 31 Gm Oral.Susp) 15 gm PO PRN PRN PRN Reason: Hypoglycemia Potassium Chloride 40 meq/ (Dextrose) 520 mls @ 130 mls/hr IV UD PRN PRN Reason: Potassium < 3 Magnesium Sulfate (Magnesium Sulfate) 2 gm in 50 mls @ 50 mls/hr IV UD PRN PRN Reason: Magnesium </= 1.6 Sodium Chloride (Sodium Chloride 0.45%) 1,000 mls @ 84 mls/hr IV .[id number] [facility] Stop: 07/04/21 17:32 Last Admin: 07/03/21 20:34 Dose: 84 mls/hr Documented by: Insulin Human Lispro (Insulin Lispro 1 Unit/0.01 Ml Unit) 0 unit SQ ACHS [facility]; Protocol Last Admin: 07/03/21 22:15 Dose: 4 unit Documented by: Lorazepam (Lorazepam 2 Mg/Ml Vial) 0 mg IV Q1HP PRN PRN Reason: Seizure Activity Meclizine HCl (Meclizine 25 Mg Tablet) 12.5 mg PO TID [facility] Last Admin: 07/03/21 22:02 Dose: 12.5 mg Documented by: Metoclopramide HCl (Metoclopramide 10 Mg/2 Ml Vial) 10 mg IV Q6HP PRN PRN Reason: Nausea And Vomiting Nortriptyline HCl (Nortriptyline 25 Mg Capsule) 50 mg PO QHS [facility] Last Admin: 07/03/21 22:02 Dose: 50 mg Documented by: Olanzapine (Olanzapine 5 Mg Tablet) 10 mg PO HS [facility] Last Admin: 07/03/21 22:03 Dose: 10 mg Documented by: Omeprazole (Omeprazole 20 Mg Capsule) 40 mg PO ACB [facility] Ondansetron HCl (Ondansetron 4 Mg/2 Ml Vial) 4 mg IV Q4HP PRN PRN Reason: Nausea And Vomiting Oxybutynin Chloride (Oxybutynin Chloride 5 Mg Tab.Xl.24h) 10 mg PO QDAY [facility] Phenytoin Sodium (Phenytoin Sod 100 Mg Capsule) 100 mg PO BID@0800,1200 [facility] Phenytoin Sodium (Phenytoin Sod 100 Mg Capsule) 200 mg PO HS [facility] Last Admin: 07/03/21 22:02 Dose: 200 mg Documented by: Polyethylene Glycol (Polyethylene Glycol 3350 17 Gm Packet) 17 gm PO DAILYP PRN PRN Reason: Constipation Potassium Chloride (Potassium Chloride 20 Meq Tablet) 40 meq PO UD PRN PRN Reason: Potssium is 3-3.5 Last Admin: 07/03/21 22:03 Dose: 40 meq Documented by: Potassium Chloride (Potassium Chloride 20 Meq Tablet) 40 meq PO UD PRN PRN Reason: Potassium < 3 Sitagliptin Phosphate (Sitagliptin 50 Mg Tablet) 50 mg PO DAILY [facility] Sodium Chloride (0.9 % Sodium Chloride 10 Ml Syringe) 10 ml IV Q8 [facility] Last Admin: 07/04/21 06:04 Dose: 10 ml Documented by: A/P Narrative A/P Narrative: A: *Dehydration w/hypernatremia: resolved *JANETH: improving *UTI ( ): *Metabolic Encephalopathy: 2/2 above + underly psych vs MCI or early dementia *Likely starvation ketosis (h/o same): *AG Met acidosis: 2/2 above, possible that she had seizure as inciting event *Generalized weakness/deconditioning/fall: *Schizophrenia: *DM: *HTN/HLD: *GERD: *h/o persistently elevated CPK on past/current labs: always attributed to fall or downtime, but could also be caused by seizure and also of note she is on gemfibrozil *h/o Sz d/o: on phenytoin (low levels- ?compliance) P: -cont hypotonic IVF -Rocephin pending UC -seizure precautions -check/replace electrolytes -SSI -cont psych meds, pheyntoin (repeat level in 2 days) -cont come BB -f/u cpk, d/c gemfibrozil and f/u with PCP -dietary consult - -PT/OT -CM for placement needs -f/u with neurology for seizure history and likely phenytoin dose adjustment -ppx: lonvenox/home ppi Time Spent With Patient Time: Total time spent is greater than 50% in coordination of care (as documented) at patient's floor/unit and/or counseling patient:
[2021-07-04 08:21] LABS: Neutrophils % (Auto) 88.1 % (38.0-78.0)
[2021-07-04] MEDS: 0.45 % SODIUM CHLORIDE 1,000 ML IV SCH (08:28)
[2021-07-04] MEDS: ENOXAPARIN 40 MG/0.4 ML SYRINGE SQ SCH (08:29)
[2021-07-04] MEDS: OMEPRAZOLE 20 MG CAPSULE PO SCH (08:30)
[2021-07-04] MEDS: SODIUM BICARBONATE 650 MG TABLET PO SCH ×3 (08:30→21:07)
[2021-07-04] MEDS: CARVEDILOL 12.5 MG TABLET PO SCH ×2 (08:30→18:10)
[2021-07-04] MEDS: cefTRIAXone 1 GM VIAL IV SCH (08:30)
[2021-07-04] MEDS: DULoxetine 30 MG CAPSULE PO SCH (08:31)
[2021-07-04] MEDS: MECLIZINE 25 MG TABLET PO SCH ×3 (08:31→21:09)
[2021-07-04] MEDS: PHENYTOIN SOD 100 MG CAPSULE PO SCH ×4 (08:32→21:08)
[2021-07-04] MEDS: busPIRone 5 MG TABLET PO SCH ×2 (08:32→21:10)
[2021-07-04] MEDS: OXYBUTYNIN CHLORIDE 5 MG TAB.XL.24H PO SCH (08:33)
[2021-07-04] MEDS: sitaGLIPtin 50 MG TABLET PO SCH (08:33)
[2021-07-04] MEDS: INSULIN LISPRO 1 UNIT/0.01 ML UNIT SQ SCH ×4 (09:00→21:30)
[2021-07-04] MEDS: NORTRIPTYLINE 25 MG CAPSULE PO SCH (21:08)
[2021-07-04] MEDS: OLANZapine 5 MG TABLET PO SCH (21:10)
[2021-07-05] MEDS ORDERED: ACETAMINOPHEN 650 MG/65 ML BAG IV PRN (02:07)
[2021-07-05] MEDS ORDERED: ACETAMINOPHEN 1,000 MG/100 ML BAG IV ONE (02:29)
[2021-07-05] MEDS: MECLIZINE 25 MG TABLET PO SCH ×4 (05:31→20:18)
[2021-07-05] MEDS: busPIRone 5 MG TABLET PO SCH ×3 (05:32→20:17)
[2021-07-05] MEDS: OLANZapine 5 MG TABLET PO SCH ×2 (05:33→20:17)
[2021-07-05] MEDS: NORTRIPTYLINE 25 MG CAPSULE PO SCH ×2 (05:33→20:17)
[2021-07-05] MEDS: PHENYTOIN SOD 100 MG CAPSULE PO SCH ×4 (05:33→20:16)
[2021-07-05] MEDS: 0.9 % SODIUM CHLORIDE 10 ML SYRINGE IV SCH ×3 (05:45→22:51)
--- NOTE | 2021-07-05 08:07 | Internal Med Progress Note ---
SUBJECTIVE Subjective Patient information: Note initiated : 07/05/21 at 8:00 am Service Date, if different from initiated Date: [] Patient: Bibi Murrell a 70 y/o F admitted on 07/03/21 for fall. Chief Complaint: [] Interval history: History of present illness: Ms. Murrell is a 70 year old F History obtained from chart as patient is a poor historian and could not give me much information. Per the report patient was found on the floor covered in urine. Last seen normal 2 days prior by family members. Patient confused. She is aware of her name and that she is in the hospital but could not give any course of events or answer any other questions with clarity. In the ED she was found to have elevated sodium elevated BUN/creatinine ratio mildly elevated CK. Urine concerning for infection. Concern for sepsis in the ED. She has had several hospitalizations since 2017 at our similar presentation. She also has a history of epilepsy as well as schizophrenia and perhaps she had a seizure. She did say to me during the course of my interview that she did not take her new medication but I was unable to ascertain who prescribed it to her and what the name of the medication was or what it was for -she cannot give me any details. 07/04 Patient slept well per nursing staff. Patient confused. I suspect she may not have been taking her medications correctly, Dilantin level was quite low. CK improved, sodium within normal limits. Still acidotic. BUN/creatinine improved. 07/05 Mentation a bit more clear this morning. Was febrile last night. Urine culture with E. coli. Blood cultures pending. No diarrhea. She has occasional cough and nursing notes cough with eating and drinking. Denies shortness of breath or other complaints. CPK within normal limits. Electrolyte abnormalities present. She does admit to missing a lot of her medications. Review of Systems: denies headache/fever/chills/nausea/vomiting/chest or abdominal pain. Otherwise see above. Constitutional Vitals: Vital Signs Temp Pulse Resp BP Pulse Ox 100.1 F H 74 18 151/98 95 07/05/21 04:23 07/05/21 04:23 07/05/21 04:23 07/05/21 04:05 07/05/21 04:23 Period Temp Pulse Resp BP Sys/Jessica Pulse Ox Last 24 Hr 98.8 F-101.1 F 73-92 17-44 73-151/37-98 92-98 Intake and Output 07/04/21 07/05/21 07/05/21 21:59 05:59 13:59 Intake Total 723 09 6369 Output Total 110 540 Balance 370 -475 1000 Weight 69.49 kg Intake & Output: Intake & Output 07/04/21 07/05/21 07/05/21 21:59 05:59 13:59 Intake Total 873 55 0334 Output Total 110 540 Balance 370 -475 1000 Weight 69.49 kg Intake: IV 65 1000 Sodium Chloride 0.45% 1,000 ml 1000 @ 84 mls/hr IV .[id number] [facility] Rx# :[id number] OFIRMEV 1,000 mg In 100 ml @ 0 65 mls/hr IV .K-MED ONE Rx#: [id number] Oral 480 Output: Urine Catheter Amount 110 540 Other: Meal Lunch Percent of Meal Consumed 25% Urine Appearance Clear Cloudy Mucous Threads Urine Color Bright Yellow Light Paz Urine Odor Normal Strong Exam: General: Alert, Awake, No acute Distress Eyes/N/T: EOMI, Head/Neck: neck supple, CV: RRR, No murmurs, Pulm: mild rhonchi right base, no wheezing Abd: soft, nontender, +BS x4 Ext: no clubbing/cyanosis/edema Neuro: Alert, no focal deficits, moves all extremities, follows commands Skin: warm/dry Psych: disoriented OBJ DATA Labs CBC & Chem 7: 07/04/21 05:23 07/05/21 05:34 Labs: Abnormal Lab Results 07/04/21 07/04/21 07/04/21 05:46 05:23 05:23 RBC 2.91 L Hgb 9.3 L Hct 28.3 L RDW 14.8 H Plt Count 99 L Neut % (Auto) 88.1 H Lymph % (Auto) 4.5 L Lymph # (Auto) 0.30 L Absolute Neutrophils Sodium Chloride 112 H Carbon Dioxide 13 L Anion Gap BUN 57 H Creatinine Glucose 134 H Uric Acid 11.1 H Phosphorus 2.2 L Alkaline Phosphatase 158 H Lactate Dehydrogenase 270 H Total Creatine Kinase 243 H Total Protein 5.7 L Albumin 2.5 L Globulin Albumin/Globulin Ratio 0.8 L Triglycerides 308 H Urine Appearance Urine Protein Urine Ketones Ur Leukocyte Esterase Urine WBC Urine Mucus 07/03/21 07/03/21 07/03/21 14:40 13:03 12:35 RBC Hgb Hct RDW Plt Count Neut % (Auto) Lymph % (Auto) Lymph # (Auto) Absolute Neutrophils Sodium 148 H Chloride 113 H 109 H Carbon Dioxide 13 L 13 L Anion Gap 22.0 H 22.0 H BUN 72 H 66 H Creatinine 1.2 H 1.2 H Glucose 152 H 149 H Uric Acid Phosphorus Alkaline Phosphatase 199 H Lactate Dehydrogenase Total Creatine Kinase 548 H 557 H Total Protein Albumin Globulin 3.9 H Albumin/Globulin Ratio 0.8 L Triglycerides Urine Appearance Hazy A Urine Protein 100 A Urine Ketones 20 A Ur Leukocyte Esterase 75 A Urine WBC 15 H Urine Mucus Many A 07/03/21 12:35 RBC 3.57 L Hgb Hct RDW 14.6 H Plt Count 127 L Neut % (Auto) 90.0 H Lymph % (Auto) 3.5 L Lymph # (Auto) 0.32 L Absolute Neutrophils 8.29 H Sodium Chloride Carbon Dioxide Anion Gap BUN Creatinine Glucose Uric Acid Phosphorus Alkaline Phosphatase Lactate Dehydrogenase Total Creatine Kinase Total Protein Albumin Globulin Albumin/Globulin Ratio Triglycerides Urine Appearance Urine Protein Urine Ketones Ur Leukocyte Esterase Urine WBC Urine Mucus Meds: Medications Acetaminophen (Acetaminophen 325 Mg Tablet) 650 mg PO Q6HP PRN; Protocol PRN Reason: Per Pain Protocol/Fever > 101 Last Admin: 07/03/21 22:01 Dose: 650 mg Documented by: Albuterol/Ipratropium (Ipratropium/Albuterol 3 Ml Ampul.Neb) 3 ml NEB Q4HP PRN PRN Reason: Shortness Of Breath Buspirone HCl (Buspirone 5 Mg Tablet) 7.5 mg PO BID [facility] Last Admin: 07/05/21 05:32 Dose: Not Given Documented by: Carvedilol (Carvedilol 12.5 Mg Tablet) 12.5 mg PO BIDCC [facility] Last Admin: 07/04/21 18:10 Dose: Not Given Documented by: Ceftriaxone Sodium (Ceftriaxone 1 Gm Vial) 1 gm IV DAILY [facility] Last Admin: 07/04/21 08:30 Dose: 1 gm Documented by: Dextrose (Dextrose 50% 50 Ml Vial) 0 ml IV UD PRN PRN Reason: Hypoglycemia Diagnostic Test (Pha) (Accu-Chek 1 Each Strip) 1 each FS ACHS [facility] Last Admin: 07/04/21 21:30 Dose: 1 each Documented by: Duloxetine HCl (Duloxetine 30 Mg Capsule) 60 mg PO DAILY [facility] Last Admin: 07/04/21 08:31 Dose: 60 mg Documented by: Enoxaparin Sodium (Enoxaparin 40 Mg/0.4 Ml Syringe) 40 mg SQ DAILY [facility] Last Admin: 07/04/21 08:29 Dose: 40 mg Documented by: Glucose (Dextrose 31 Gm Oral.Susp) 15 gm PO PRN PRN PRN Reason: Hypoglycemia Potassium Chloride 40 meq/ (Dextrose) 520 mls @ 130 mls/hr IV UD PRN PRN Reason: Potassium < 3 Magnesium Sulfate (Magnesium Sulfate) 2 gm in 50 mls @ 50 mls/hr IV UD PRN PRN Reason: Magnesium </= 1.6 Acetaminophen (Ofirmev) 650 mg in 65 mls @ 130 mls/hr IV Q6HP PRN; Protocol PRN Reason: PAIN/FEVER > 101 Insulin Human Lispro (Insulin Lispro 1 Unit/0.01 Ml Unit) 0 unit SQ ACHS [facility]; Protocol Last Admin: 07/04/21 21:30 Dose: 6 unit Documented by: Lorazepam (Lorazepam 2 Mg/Ml Vial) 0 mg IV Q1HP PRN PRN Reason: Seizure Activity Meclizine HCl (Meclizine 25 Mg Tablet) 12.5 mg PO TID [facility] Last Admin: 07/05/21 05:31 Dose: Not Given Documented by: Metoclopramide HCl (Metoclopramide 10 Mg/2 Ml Vial) 10 mg IV Q6HP PRN PRN Reason: Nausea And Vomiting Nortriptyline HCl (Nortriptyline 25 Mg Capsule) 50 mg PO QHS [facility] Last Admin: 07/05/21 05:33 Dose: Not Given Documented by: Olanzapine (Olanzapine 5 Mg Tablet) 10 mg PO HS [facility] Last Admin: 07/05/21 05:33 Dose: Not Given Documented by: Omeprazole (Omeprazole 20 Mg Capsule) 40 mg PO ACB [facility] Last Admin: 07/04/21 08:30 Dose: 40 mg Documented by: Ondansetron HCl (Ondansetron 4 Mg/2 Ml Vial) 4 mg IV Q4HP PRN PRN Reason: Nausea And Vomiting Oxybutynin Chloride (Oxybutynin Chloride 5 Mg Tab.Xl.24h) 10 mg PO QDAY [facility] Last Admin: 07/04/21 08:33 Dose: 10 mg Documented by: Phenytoin Sodium (Phenytoin Sod 100 Mg Capsule) 100 mg PO BID@0800,1200 [facility] Last Admin: 07/04/21 14:02 Dose: Not Given Documented by: Phenytoin Sodium (Phenytoin Sod 100 Mg Capsule) 200 mg PO HS [facility] Last Admin: 07/05/21 05:33 Dose: Not Given Documented by: Polyethylene Glycol (Polyethylene Glycol 3350 17 Gm Packet) 17 gm PO DAILYP PRN PRN Reason: Constipation Potassium Chloride (Potassium Chloride 20 Meq Tablet) 40 meq PO UD PRN PRN Reason: Potssium is 3-3.5 Last Admin: 07/03/21 22:03 Dose: 40 meq Documented by: Potassium Chloride (Potassium Chloride 20 Meq Tablet) 40 meq PO UD PRN PRN Reason: Potassium < 3 Sitagliptin Phosphate (Sitagliptin 50 Mg Tablet) 50 mg PO DAILY [facility] Last Admin: 07/04/21 08:33 Dose: 50 mg Documented by: Sodium Chloride (0.9 % Sodium Chloride 10 Ml Syringe) 10 ml IV Q8 [facility] Last Admin: 07/05/21 05:45 Dose: 10 ml Documented by: A/P Narrative A/P Narrative: A: *Dehydration w/hypernatremia: resolved *JANETH: resolved *UTI (E.coli): -Febrile last night *Metabolic Encephalopathy: 2/2 above + underly psych vs MCI or early dementia. seems more clear this morning -CT brain mild diffuse atrophy, no acute *Likely starvation ketosis (h/o same): *AG Met acidosis: 2/2 above, possible that she had seizure as inciting event *Generalized weakness/deconditioning/fall: *Med noncompliance: pt admits to missing meds *Hypophosphatemia: *Schizophrenia: *DM: *HTN/HLD: on coreg *GERD: *h/o persistently elevated CPK on past/current labs: always attributed to fall or downtime, but could also be caused by seizure and also of note she is on gemfibrozil. Resolved *h/o Sz d/o: on phenytoin (low levels - 2/2 noncompliance) P: -Rocephin pending UC/BC -seizure precautions -replace electrolytes -SSI -cont psych meds, pheyntoin (repeat level 2-3 day) -cont come BB -d/c gemfibrozil and f/u with PCP -dietary consult -PT/OT, ST eval for possible aspiration with food/drink -CM for placement needs -f/u with neurology for seizure history and phenytoin levels/dose adjustment if necessary -ppx: lonvenox/home ppi DNR Time Spent With Patient Time: Total time spent is greater than 50% in coordination of care (as documented) at patient's floor/unit and/or counseling patient:
[2021-07-05 08:14] LABS: ALT/SGPT 9 U/L (<40); AST/SGOT 12 U/L (<32); Albumin/Globulin Ratio 0.6 (1.0-2.3); Alkaline Phosphatase 133 U/L (39-117); Bilirubin,Direct 0.2 mg/dL (<0.3); Bilirubin,Total 0.4 mg/dL (0.1-1.0); Blood Urea Nitrogen 45 mg/dL (8-23); Calcium 8.7 mg/dL (8.6-10.4); Carbon Dioxide 14 mmol/L (22-30); Chloride 114 mmol/L (96-108); Globulin 3.1 gm/dL (2.2-3.7); Glomerular Filtration Rate 57; Glucose 129 mg/dL (70-105); Lactate Dehydrogenase 258 U/L (135-225); Phosphorous 1.2 mg/dL (2.5-4.5); Triglycerides 182 mg/dL (<150); Uric Acid 8.8 mg/dL (2.5-8.0)
[2021-07-05] MEDS: ENOXAPARIN 40 MG/0.4 ML SYRINGE SQ SCH (08:24)
[2021-07-05] MEDS: cefTRIAXone 1 GM VIAL IV SCH (08:24)
[2021-07-05] MEDS: OMEPRAZOLE 20 MG CAPSULE PO SCH (08:25)
[2021-07-05] MEDS: OXYBUTYNIN CHLORIDE 5 MG TAB.XL.24H PO SCH (08:25)
[2021-07-05] MEDS: sitaGLIPtin 50 MG TABLET PO SCH (08:26)
[2021-07-05] MEDS: DULoxetine 30 MG CAPSULE PO SCH (08:26)
[2021-07-05 08:27] LABS: Dilantin Test 1.4 ug/mL
[2021-07-05] MEDS: INSULIN LISPRO 1 UNIT/0.01 ML UNIT SQ SCH ×4 (08:27→21:00)
[2021-07-05] MEDS ORDERED: DEXTROSE 5% IN WATER 750 ML IV SCH (09:30)
[2021-07-05] MEDS: CARVEDILOL 12.5 MG TABLET PO SCH ×2 (09:51→17:19)
[2021-07-05] MEDS ORDERED: POTASSIUM PHOSPHATE 40 MEQ in DEXTROSE 5% IN WATER 500 ML IV ONE (10:00)
[2021-07-05] MEDS: PHOSPHORUS 250 MG TABLET PO SCH ×2 (10:15→20:15)
[2021-07-05] MEDS: SODIUM BICARBONATE 650 MG TABLET PO SCH ×3 (10:15→20:15)
[2021-07-05] MEDS: ACETAMINOPHEN 325 MG TABLET PO PRN (15:13)
[2021-07-06] MEDS: 0.9 % SODIUM CHLORIDE 10 ML SYRINGE IV SCH ×3 (05:40→21:37)
[2021-07-06] MEDS: OMEPRAZOLE 20 MG CAPSULE PO SCH (07:51)
[2021-07-06] MEDS: INSULIN LISPRO 1 UNIT/0.01 ML UNIT SQ SCH ×4 (08:03→21:37)
[2021-07-06] MEDS: ENOXAPARIN 40 MG/0.4 ML SYRINGE SQ SCH (08:13)
[2021-07-06] MEDS: CARVEDILOL 12.5 MG TABLET PO SCH ×2 (08:13→17:05)
[2021-07-06] MEDS: PHENYTOIN SOD 100 MG CAPSULE PO SCH ×3 (08:13→21:34)
[2021-07-06] MEDS ORDERED: VANCOMYCIN PER PHARMACY IV SCH (08:22)
[2021-07-06] MEDS: SODIUM BICARBONATE 650 MG TABLET PO SCH (08:24)
[2021-07-06] MEDS: sitaGLIPtin 50 MG TABLET PO SCH (08:25)
[2021-07-06] MEDS: MECLIZINE 25 MG TABLET PO SCH ×3 (08:25→21:34)
[2021-07-06] MEDS: OXYBUTYNIN CHLORIDE 5 MG TAB.XL.24H PO SCH (08:25)
[2021-07-06] MEDS: busPIRone 5 MG TABLET PO SCH ×2 (08:25→21:34)
[2021-07-06] MEDS: DULoxetine 30 MG CAPSULE PO SCH (08:25)
--- NOTE | 2021-07-06 08:25 | Internal Med Progress Note ---
SUBJECTIVE Subjective Patient information: Note initiated : 07/06/21 at 8:20 am Service Date, if different from initiated Date: [] Patient: Bibi Murrell a 70 y/o F admitted on 07/03/21 for fall. Chief Complaint: [] Interval history: History of present illness: Ms. Murrell is a 70 year old F History obtained from chart as patient is a poor historian and could not give me much information. Per the report patient was found on the floor covered in urine. Last seen normal 2 days prior by family members. Patient confused. She is aware of her name and that she is in the hospital but could not give any course of events or answer any other questions with clarity. In the ED she was found to have elevated sodium elevated BUN/creatinine ratio mildly elevated CK. Urine concerning for infection. Concern for sepsis in the ED. She has had several hospitalizations since 2017 at our similar presentation. She also has a history of epilepsy as well as schizophrenia and perhaps she had a seizure. She did say to me during the course of my interview that she did not take her new medication but I was unable to ascertain who prescribed it to her and what the name of the medication was or what it was for -she cannot give me any details. 07/04 Patient slept well per nursing staff. Patient confused. I suspect she may not have been taking her medications correctly, Dilantin level was quite low. CK improved, sodium within normal limits. Still acidotic. BUN/creatinine improved. 07/05 Mentation a bit more clear this morning. Was febrile last night. Urine culture with E. coli. Blood cultures pending. No diarrhea. She has occasional cough and nursing notes cough with eating and drinking. Denies shortness of breath or other complaints. CPK within normal limits. Electrolyte abnormalities present. She does admit to missing a lot of her medications. 07/06 Patient having fevers still. Pending blood cultures. Urine culture growing E. coli. Mentation similar to yesterday. Chemistry still pending. Review of Systems: denies headache/fever/chills/nausea/vomiting/chest or abdominal pain. Otherwise see above. Constitutional Vitals: Vital Signs Temp Pulse Resp BP Pulse Ox 100.5 F H 84 19 160/90 97 07/06/21 08:05 07/06/21 08:05 07/06/21 08:05 07/06/21 08:05 07/06/21 08:05 Period Temp Pulse Resp BP Sys/Jessica Pulse Ox Last 24 Hr 99.5 F-101.7 F 75-93 18-30 70-160/44-105 95-100 Intake and Output 07/05/21 07/06/21 07/06/21 21:59 05:59 13:59 Intake Total 509.0909 285 Output Total 625 900 Balance -115.9091 -615 Weight 73.391 kg Intake & Output: Intake & Output 07/05/21 07/06/21 07/06/21 21:59 05:59 13:59 Intake Total 509.0909 285 Output Total 625 900 Balance -115.9091 -615 Weight 73.391 kg Intake: IV 509.0909 65 Potassium Phosphate 40 Meq In 509.0909 Dextrose 5% in Water 500 ml @ 127.273 mls/hr IV ONCE ONE Rx#: [id number] Oral 220 Output: Urine Catheter Amount 625 900 Other: Urine Appearance Cloudy Cloudy Sediment Urine Color Light Paz Light Paz Uretheral (Bai) Dark Paz Urine Odor Strong Exam: General: Alert, Awake, No acute Distress Eyes/N/T: EOMI, Head/Neck: neck supple no nuchal rigidity CV: RRR, No murmurs, Pulm: mild rhonchi right base, no wheezing Abd: soft, nontender, +BS x4 Ext: no clubbing/cyanosis/edema Neuro: Alert, no focal deficits, moves all extremities, follows commands, answers simple questions, knows she's in [place], knows name, s Skin: warm/dry OBJ DATA Labs CBC & Chem 7: 07/04/21 05:23 07/05/21 05:34 Labs: Abnormal Lab Results 07/05/21 07/04/21 07/04/21 05:34 05:46 05:23 RBC Hgb Hct RDW Plt Count Neut % (Auto) Lymph % (Auto) Lymph # (Auto) Absolute Neutrophils Sodium Chloride 114 H 112 H Carbon Dioxide 14 L 13 L Anion Gap BUN 45 H 57 H Creatinine Glucose 129 H 134 H Uric Acid 8.8 H 11.1 H Phosphorus 1.2 L 2.2 L Alkaline Phosphatase 133 H 158 H Lactate Dehydrogenase 258 H 270 H Total Creatine Kinase 243 H Total Protein 5.1 L 5.7 L Albumin 2.0 L 2.5 L Globulin Albumin/Globulin Ratio 0.6 L 0.8 L Triglycerides 182 H 308 H Urine Appearance Urine Protein Urine Ketones Ur Leukocyte Esterase Urine WBC Urine Mucus 07/04/21 07/03/21 07/03/21 05:23 14:40 13:03 RBC 2.91 L Hgb 9.3 L Hct 28.3 L RDW 14.8 H Plt Count 99 L Neut % (Auto) 88.1 H Lymph % (Auto) 4.5 L Lymph # (Auto) 0.30 L Absolute Neutrophils Sodium 148 H Chloride 113 H Carbon Dioxide 13 L Anion Gap 22.0 H BUN 72 H Creatinine 1.2 H Glucose 152 H Uric Acid Phosphorus Alkaline Phosphatase Lactate Dehydrogenase Total Creatine Kinase 548 H Total Protein Albumin Globulin Albumin/Globulin Ratio Triglycerides Urine Appearance Hazy A Urine Protein 100 A Urine Ketones 20 A Ur Leukocyte Esterase 75 A Urine WBC 15 H Urine Mucus Many A 07/03/21 07/03/21 12:35 12:35 RBC 3.57 L Hgb Hct RDW 14.6 H Plt Count 127 L Neut % (Auto) 90.0 H Lymph % (Auto) 3.5 L Lymph # (Auto) 0.32 L Absolute Neutrophils 8.29 H Sodium Chloride 109 H Carbon Dioxide 13 L Anion Gap 22.0 H BUN 66 H Creatinine 1.2 H Glucose 149 H Uric Acid Phosphorus Alkaline Phosphatase 199 H Lactate Dehydrogenase Total Creatine Kinase 557 H Total Protein Albumin Globulin 3.9 H Albumin/Globulin Ratio 0.8 L Triglycerides Urine Appearance Urine Protein Urine Ketones Ur Leukocyte Esterase Urine WBC Urine Mucus Meds: Medications Acetaminophen (Acetaminophen 325 Mg Tablet) 650 mg PO Q6HP PRN; Protocol PRN Reason: Per Pain Protocol/Fever > 101 Last Admin: 07/05/21 15:13 Dose: 650 mg Documented by: Albuterol/Ipratropium (Ipratropium/Albuterol 3 Ml Ampul.Neb) 3 ml NEB Q4HP PRN PRN Reason: Shortness Of Breath Buspirone HCl (Buspirone 5 Mg Tablet) 7.5 mg PO BID [facility] Last Admin: 07/05/21 20:17 Dose: 7.5 mg Documented by: Carvedilol ([facility] 12.5 Mg [facility]) [facility] Last Admin: 07/06/21 08:13 Dose: 12.5 mg Documented by: Ceftriaxone Sodium (Ceftriaxone 1 Gm Vial) 1 gm IV DAILY [facility] Last Admin: 07/05/21 08:24 Dose: 1 gm Documented by: Dextrose (Dextrose 50% 50 Ml Vial) 0 ml IV UD PRN PRN Reason: Hypoglycemia Diagnostic Test (Pha) (Accu-Chek 1 Each Strip) 1 each FS [facility] Last Admin: 07/06/21 07:50 Dose: 1 each Documented by: Duloxetine HCl (Duloxetine 30 Mg Capsule) 60 mg PO DAILY [facility] Last Admin: 07/05/21 08:26 Dose: 60 mg Documented by: Enoxaparin Sodium (Enoxaparin 40 Mg/0.4 Ml Syringe) 40 mg SQ DAILY [facility] Last Admin: 07/06/21 08:13 Dose: 40 mg Documented by: Glucose (Dextrose 31 Gm Oral.Susp) 15 gm PO PRN PRN PRN Reason: Hypoglycemia Potassium Chloride 40 meq/ (Dextrose) 520 mls @ 130 mls/hr IV UD PRN PRN Reason: Potassium < 3 Magnesium Sulfate (Magnesium Sulfate) 2 gm in 50 mls @ 50 mls/hr IV UD PRN PRN Reason: Magnesium </= 1.6 Acetaminophen (Ofirmev) 650 mg in 65 mls @ 130 mls/hr IV Q6HP PRN; Protocol PRN Reason: PAIN/FEVER > 101 Last Infusion: 07/06/21 04:08 Dose: Infused Documented by: Insulin Human Lispro (Insulin Lispro 1 Unit/0.01 Ml Unit) 0 unit SQ [facility]; Protocol Last Admin: 07/06/21 08:03 Dose: 4 unit Documented by: Lorazepam (Lorazepam 2 Mg/Ml Vial) 0 mg IV Q1HP PRN PRN Reason: Seizure Activity Meclizine HCl (Meclizine 25 Mg Tablet) 12.5 mg PO TID [facility] Last Admin: 07/05/21 20:18 Dose: 12.5 mg Documented by: Metoclopramide HCl (Metoclopramide 10 Mg/2 Ml Vial) 10 mg IV Q6HP PRN PRN Reason: Nausea And Vomiting Nortriptyline HCl (Nortriptyline 25 Mg Capsule) 50 mg PO QHS [facility] Last Admin: 07/05/21 20:17 Dose: 50 mg Documented by: Olanzapine (Olanzapine 5 Mg Tablet) 10 mg PO [facility] Last Admin: 07/05/21 20:17 Dose: 10 mg Documented by: Omeprazole (Omeprazole 20 Mg Capsule) 40 mg PO ACB [facility] Last Admin: 07/06/21 07:51 Dose: 40 mg Documented by: Ondansetron HCl (Ondansetron 4 Mg/2 Ml Vial) 4 mg IV Q4HP PRN PRN Reason: Nausea And Vomiting Oxybutynin Chloride (Oxybutynin Chloride 5 Mg Tab.Xl.24h) 10 mg PO QDAY [facility] Last Admin: 07/05/21 08:25 Dose: 10 mg Documented by: Phenytoin Sodium (Phenytoin Sod 100 Mg Capsule) 100 mg PO BID@0800,1200 [facility] Last Admin: 07/06/21 08:13 Dose: 100 mg Documented by: Phenytoin Sodium (Phenytoin Sod 100 Mg Capsule) 200 mg PO HS [facility] Last Admin: 07/05/21 20:16 Dose: 200 mg Documented by: Polyethylene Glycol (Polyethylene Glycol 3350 17 Gm Packet) 17 gm PO DAILYP PRN PRN Reason: Constipation Potassium Chloride (Potassium Chloride 20 Meq Tablet) 40 meq PO UD PRN PRN Reason: Potssium is 3-3.5 Last Admin: 07/03/21 22:03 Dose: 40 meq Documented by: Potassium Chloride (Potassium Chloride 20 Meq Tablet) 40 meq PO UD PRN PRN Reason: Potassium < 3 Sitagliptin Phosphate (Sitagliptin 50 Mg Tablet) 50 mg PO DAILY [facility] Last Admin: 07/05/21 08:26 Dose: 50 mg Documented by: Sodium Bicarbonate (Sodium Bicarbonate 650 Mg Tablet) 1,300 mg PO TID [facility] Stop: 07/06/21 09:01 Last Admin: 07/05/21 20:15 Dose: 1,300 mg Documented by: Sodium Chloride (0.9 % Sodium Chloride 10 Ml Syringe) 10 ml IV Q8 [facility] Last Admin: 07/06/21 05:40 Dose: 10 ml Documented by: A/P Narrative A/P Narrative: A: *Dehydration w/hypernatremia: resolved *JANETH: resolved *UTI (E.coli): *Fevers: continue, infectious vs withdrawal from some unknown med?, not tachycardic *Metabolic Encephalopathy: 2/2 above + underly psych vs MCI or early dementia. seems more clear this morning -CT brain mild diffuse atrophy, no acute -Improved overall but stable from yesterday *Likely starvation ketosis (h/o same): *AG Met acidosis: 2/2 above, possible that she had seizure as inciting event *Generalized weakness/deconditioning/fall: *Med noncompliance: pt admits to missing meds *Hypophosphatemia: *Schizophrenia: *DM: *HTN/HLD: on coreg *GERD: *h/o persistently elevated CPK on past/current labs: always attributed to fall or downtime, but could also be caused by seizure and also of note she is on gemfibrozil. Resolved *h/o Sz d/o: on phenytoin (low levels - 2/2 noncompliance) P: -Rocephin pending UC/BC, added vanco given continued fevers and pending MRSA screen -MRI brain pending -UDS pending -seizure precautions -replace electrolytes -SSI -cont psych meds, pheyntoin (repeat level in several days) -cont come BB -d/c gemfibrozil and f/u with PCP -dietary consult -PT/OT, ST eval for possible aspiration with food/drink -CM for placement needs -f/u with neurology for seizure history and phenytoin levels/dose adjustment if necessary -ppx: lonvenox/home ppi DNR Time Spent With Patient Time: Total time spent is greater than 50% in coordination of care (as documented) at patient's floor/unit and/or counseling patient:
[2021-07-06] MEDS: cefTRIAXone 1 GM VIAL IV SCH (08:26)
[2021-07-06] MEDS ORDERED: VANCOMYCIN 1,000 MG in 0.9 % SODIUM CHLORIDE 250 ML IV SCH (09:00)
--- NOTE | 2021-07-06 09:00 | EKG ---
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
[2021-07-06 09:03] LABS: ALT/SGPT 8 U/L (<40); AST/SGOT 10 U/L (<32); Albumin/Globulin Ratio 0.6 (1.0-2.3); Alkaline Phosphatase 117 U/L (39-117); Bilirubin,Direct < 0.2 mg/dL (0-0.3); Bilirubin,Total 0.3 mg/dL (0.1-1.0); Blood Urea Nitrogen 27 mg/dL (8-23); Calcium 8.8 mg/dL (8.6-10.4); Carbon Dioxide 16 mmol/L (22-30); Chloride 113 mmol/L (96-108); Globulin 3.3 gm/dL (2.2-3.7); Glomerular Filtration Rate 88; Glucose 172 mg/dL (70-105); Lactate Dehydrogenase 219 U/L (135-225); Phosphorous 2.5 mg/dL (2.5-4.5); Triglycerides 162 mg/dL (<150); Uric Acid 7.4 mg/dL (2.5-8.0)
[2021-07-06] MEDS ORDERED: MAGNESIUM SULFATE 8.12 MEQ in DEXTROSE 5% IN WATER 50 ML IV ONE (09:10)
[2021-07-06] MEDS ORDERED: MAGNESIUM SULFATE 2 GM/50 ML BAG IV ONE (10:00)
[2021-07-06 10:36] LABS: Amphetamine Screen,Urine None detected; Barbiturate Screen,Urine None detected; Benzodiazepines Screen,Urine None detected; Cannabinoid Screen,Urine None detected; Cocaine Screen,Urine None detected; Opiate Screen,Urine None detected; Oxycodone, Urine Screen None detected; Phencyclidine Screen,Urine None detected
[2021-07-06] MEDS ORDERED: ACETAMINOPHEN 325 MG TABLET PO ONE (11:56)
[2021-07-06] MEDS ORDERED: LORazepam 2 MG/ML VIAL IV PRN (15:03)
--- NOTE | 2021-07-06 18:35 | Magnetic Resonance Report ---
History: Fell, altered mental status, fever TECHNIQUE: Multiplanar imaging was performed using multiple pulse sequences. 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 There is no infiltrative process in the bone marrow no disruption of the cortex. This is a chronic finding with no change compared with prior head CT in 2017. On the T2 FLAIR weighted images there is high signal in the sulci on both sides of the brain, above the tentorium. No corresponding abnormality is seen on T1 or T2 and the gradient sequence shows no blood products within the subarachnoid space. The underlying brain is normal without evidence of cerebritis There is no atrophy. No mass, hemorrhage or infarct are present. The ventricles are normal in size. There is no abnormal extra-axial fluid collection. The brainstem, cerebellum and basal ganglia are normal. There is low-grade bilateral ethmoid sinusitis. IMPRESSION: Increased signal in the sulci of the tentorium. This may be an artifact related to the thick calvarium. However, meningitis is also in the differential. No evidence of acute brain injury from the recent fall Interpreted and Authenticated by: Les Childress 07/06/21
[2021-07-06] MEDS: NORTRIPTYLINE 25 MG CAPSULE PO SCH (21:34)
[2021-07-06] MEDS: OLANZapine 5 MG TABLET PO SCH (21:35)
[2021-07-06] MEDS: VANCOMYCIN 1,000 MG in DEXTROSE 5% IN WATER 250 ML IV SCH (21:36)
[2021-07-06] MEDS: ACETAMINOPHEN 325 MG TABLET PO PRN (22:11)
[2021-07-07] MEDS: 0.9 % SODIUM CHLORIDE 10 ML SYRINGE IV SCH ×3 (06:00→21:57)
[2021-07-07] MEDS: INSULIN LISPRO 1 UNIT/0.01 ML UNIT SQ SCH ×4 (08:38→21:56)
[2021-07-07] MEDS: ENOXAPARIN 40 MG/0.4 ML SYRINGE SQ SCH (08:39)
[2021-07-07] MEDS: sitaGLIPtin 50 MG TABLET PO SCH (08:39)
[2021-07-07] MEDS: OXYBUTYNIN CHLORIDE 5 MG TAB.XL.24H PO SCH (08:39)
[2021-07-07] MEDS: cefTRIAXone 1 GM VIAL IV SCH (08:39)
[2021-07-07] MEDS: busPIRone 5 MG TABLET PO SCH ×2 (08:39→21:55)
[2021-07-07] MEDS: PHENYTOIN SOD 100 MG CAPSULE PO SCH ×3 (08:40→21:54)
[2021-07-07] MEDS: MECLIZINE 25 MG TABLET PO SCH ×3 (08:40→21:55)
[2021-07-07] MEDS: OMEPRAZOLE 20 MG CAPSULE PO SCH (08:40)
[2021-07-07] MEDS: DULoxetine 30 MG CAPSULE PO SCH (08:40)
[2021-07-07] MEDS: CARVEDILOL 12.5 MG TABLET PO SCH ×2 (08:40→17:20)
[2021-07-07 09:18] LABS: ALT/SGPT 7 U/L (<40); AST/SGOT 10 U/L (<32); Albumin 2.1 gm/dL (3.2-5.2); Albumin/Globulin Ratio 0.6 (1.0-2.3); Alkaline Phosphatase 139 U/L (39-117); Bilirubin,Total 0.2 mg/dL (0.1-1.0); Blood Urea Nitrogen 21 mg/dL (8-23); Carbon Dioxide 18 mmol/L (22-30); Chloride 109 mmol/L (96-108); Globulin 3.3 gm/dL (2.2-3.7); Glomerular Filtration Rate 88; Glucose 160 mg/dL (70-105)
[2021-07-07 10:10] LABS: Basophils # (Auto) 0.02 K/mcL (0.00-0.30); Basophils % (Auto) 0.2 % (0.0-2.0); Eosinophils # (Auto) 0.25 K/mcL (0.00-0.70); Eosinophils % (Auto) 2.8 % (0.0-7.0); Hematocrit 26.8 % (34.1-44.9); Hemoglobin 8.3 g/dL (11.2-15.7); Lymphocytes # (Auto) 0.58 K/mcL (1.50-4.80); Lymphocytes % (Auto) 6.5 % (15.5-49.0); Mean Platelet Volume 10.7 fL (7.4-10.4); Monocytes # (Auto) 0.47 K/mcL (0.10-0.90); Monocytes % (Auto) 5.3 % (1.0-12.0); Neutrophils % (Auto) 85.2 % (38.0-78.0); Platelet Count 76 K/mcL (140-440); RBC 2.68 M/mcL (3.59-5.38); Red Cell Distribution Width 15.3 % (11.5-14.5); WBC 8.9 K/mcL (4.5-11.0)
[2021-07-07] MEDS: VANCOMYCIN 1,000 MG in DEXTROSE 5% IN WATER 250 ML IV SCH (10:23)
[2021-07-07] MEDS ORDERED: VANCOMYCIN 1,000 MG in 0.9 % SODIUM CHLORIDE 250 ML IV SCH (11:00)
--- NOTE | 2021-07-07 12:12 | Internal Med Progress Note ---
SUBJECTIVE Subjective Patient information: Note initiated : 07/07/21 at 12:02 pm Service Date, if different from initiated Date: [] Patient: Bibi Murrell a 70 y/o F admitted on 07/03/21 for fall. Chief Complaint: [UTI, sacral stage 3 ulcer] Interval history: History of present illness: Ms. Murrell is a 70 year old F History obtained from chart as patient is a poor historian and could not give me much information. Per the report patient was found on the floor covered in urine. Last seen normal 2 days prior by family members. Patient confused. She is aware of her name and that she is in the hospital but could not give any course of events or answer any other questions with clarity. In the ED she was found to have elevated sodium elevated BUN/creatinine ratio mildly elevated CK. Urine concerning for infection. Concern for sepsis in the ED. She has had several hospitalizations since 2017 at our similar presentation. She also has a history of epilepsy as well as schizophrenia and perhaps she had a seizure. She did say to me during the course of my interview that she did not take her new medication but I was unable to ascertain who prescribed it to her and what the name of the medication was or what it was for -she cannot give me any details. 07/04 Patient slept well per nursing staff. Patient confused. I suspect she may not have been taking her medications correctly, Dilantin level was quite low. CK improved, sodium within normal limits. Still acidotic. BUN/creatinine improved. 07/05 Mentation a bit more clear this morning. Was febrile last night. Urine culture with E. coli. Blood cultures pending. No diarrhea. She has occasional cough and nursing notes cough with eating and drinking. Denies shortness of breath or other complaints. CPK within normal limits. Electrolyte abnormalities present. She does admit to missing a lot of her medications. 07/06 Patient having fevers still. Pending blood cultures. Urine culture growing E. coli. Mentation similar to yesterday. Chemistry still pending. 07/07: Afebrile. MRI brain: increased signal in the sulci of the tentorium likely artifact. No evidence of acute brain injury from recent falls. Urine culture: E. coli. Wound and blood culure no growth to date. Denies fever or chills. Denies dysuria. Denies back pain. c/o left lateral hip pain. Denies confusion or lethargy. Constitutional Vitals: Vital Signs Temp Pulse Resp BP Pulse Ox 36.9 C 84 25 H 129/60 97 07/07/21 08:14 07/06/21 08:05 07/07/21 08:14 07/07/21 08:14 07/07/21 08:14 Period Temp Pulse Resp BP Sys/Jessica Pulse Ox Last 24 Hr 36.2 C-36.9 C 80-149/19-82 96-100 Intake and Output 07/06/21 07/07/21 07/07/21 21:59 05:59 13:59 Intake Total 400 250 Output Total 415 925 350 Balance -15 -675 -350 Weight 73.142 kg Intake & Output: Intake & Output 07/06/21 07/07/21 07/07/21 21:59 05:59 13:59 Intake Total 400 250 Output Total 415 925 350 Balance -15 -675 -350 Weight 73.142 kg Intake: IV 250 Vancomycin 1,000 mg In Dextrose 250 5% in Water 250 ml @ 250 mls/ hr IV Q12H [facility] Rx#:[id number] Oral 400 Output: Urine Catheter Amount 415 615 350 Void Amount 310 Other: Meal Dinner Breakfast Percent of Meal Consumed 25% 50% Feeding Ability Assist with Tray Set Up Urine Appearance Clear Clear Clear Uretheral (Bai) Clear Urine Color Dark Yellow Dark Yellow Bright Yellow Uretheral (Bai) Light Paz Urine Odor Normal Uretheral (Bai) Strong General appearance: cooperative and no acute distress Head Head exam: Present atraumatic and normocephalic Eye Eye exam: Present EOMI and PERRL ENT ENT exam: Present mucous membranes moist, normal exam and normal external ear exam Neck Neck exam: Present normal inspection; Absent lymphadenopathy, tenderness and thyromegaly Respiratory Respiratory exam: Absent accessory muscle use, respiratory distress and wheezes Cardiovascular Cardiovascular exam: Present normal rate and rhythm; Absent JVD GI/Abdominal GI/Abdominal exam: Present normal bowel sounds and soft; Absent organomegaly and tenderness Additional comments: Bai catheter in place Extremities Exam Extremities exam: Present full ROM, normal capillary refill and normal inspection; Absent tenderness Neurological Exam Neurological exam: Present alert, CN II-XII intact and oriented X3; Absent motor sensory deficit Psychiatric Psychiatric exam: Present normal affect and normal mood; Absent anxious and depressed Skin Skin exam: Present dry; Absent intact Additional comments: Sacral ulcer stage 3 OBJ DATA Labs CBC & Chem 7: 07/07/21 05:34 07/07/21 05:33 Labs: Abnormal Lab Results 07/07/21 07/07/21 07/07/21 05:34 05:33 05:33 RBC 2.68 L Hgb 8.3 L Hct 26.8 L RDW 15.3 H Plt Count 76 L MPV 10.7 H Neut % (Auto) 85.2 H Lymph % (Auto) 6.5 L Lymph # (Auto) 0.58 L ESR Chloride 109 H Carbon Dioxide 18 L BUN Glucose 160 H Uric Acid Phosphorus Magnesium Alkaline Phosphatase 139 H Lactate Dehydrogenase C-Reactive Protein Total Protein 5.4 L Albumin 2.1 L Albumin/Globulin Ratio 0.6 L Triglycerides Procalcitonin 2.20 H 07/07/21 07/06/21 07/06/21 05:33 05:30 05:30 RBC Hgb Hct RDW Plt Count MPV Neut % (Auto) Lymph % (Auto) Lymph # (Auto) ESR Chloride Carbon Dioxide BUN Glucose Uric Acid Phosphorus Magnesium Alkaline Phosphatase Lactate Dehydrogenase C-Reactive Protein 29.50 H 30.30 H Total Protein Albumin Albumin/Globulin Ratio Triglycerides Procalcitonin 3.54 H 07/06/21 07/06/21 07/05/21 05:30 05:30 05:34 RBC Hgb Hct RDW Plt Count MPV Neut % (Auto) Lymph % (Auto) Lymph # (Auto) ESR 122 H Chloride 113 H 114 H Carbon Dioxide 16 L 14 L BUN 27 H 45 H Glucose 172 H 129 H Uric Acid 8.8 H Phosphorus 1.2 L Magnesium 1.5 L Alkaline Phosphatase 133 H Lactate Dehydrogenase 258 H C-Reactive Protein Total Protein 5.3 L 5.1 L Albumin 2.0 L 2.0 L Albumin/Globulin Ratio 0.6 L 0.6 L Triglycerides 162 H 182 H Procalcitonin Meds: Medications Acetaminophen (Acetaminophen 325 Mg Tablet) 650 mg PO Q6HP PRN; Protocol PRN Reason: Per Pain Protocol/Fever > 101 Last Admin: 07/06/21 22:11 Dose: 650 mg Documented by: Albuterol/Ipratropium (Ipratropium/Albuterol 3 Ml Ampul.Neb) 3 ml NEB Q4HP PRN PRN Reason: Shortness Of Breath Buspirone HCl (Buspirone 5 Mg Tablet) 7.5 mg PO BID [facility] Last Admin: 07/07/21 08:39 Dose: 7.5 mg Documented by: Carvedilol (Carvedilol 12.5 Mg Tablet) 12.5 mg PO BIDCC [facility] Last Admin: 07/07/21 08:40 Dose: 12.5 mg Documented by: Ceftriaxone Sodium (Ceftriaxone 1 Gm Vial) 1 gm IV DAILY [facility] Last Admin: 07/07/21 08:39 Dose: 1 gm Documented by: Dextrose (Dextrose 50% 50 Ml Vial) 0 ml IV UD PRN PRN Reason: Hypoglycemia Diagnostic Test (Pha) (Accu-Chek 1 Each Strip) 1 each FS [facility] Last Admin: 07/07/21 08:38 Dose: 1 each Documented by: Duloxetine HCl (Duloxetine 30 Mg Capsule) 60 mg PO DAILY [facility] Last Admin: 07/07/21 08:40 Dose: 60 mg Documented by: Enoxaparin Sodium (Enoxaparin 40 Mg/0.4 Ml Syringe) 40 mg SQ DAILY [facility] Last Admin: 07/07/21 08:39 Dose: 40 mg Documented by: Glucose (Dextrose 31 Gm Oral.Susp) 15 gm PO PRN PRN PRN Reason: Hypoglycemia Potassium Chloride 40 meq/ (Dextrose) 520 mls @ 130 mls/hr IV UD PRN PRN Reason: Potassium < 3 Magnesium Sulfate (Magnesium Sulfate) 2 gm in 50 mls @ 50 mls/hr IV UD PRN PRN Reason: Magnesium </= 1.6 Acetaminophen (Ofirmev) 650 mg in 65 mls @ 130 mls/hr IV Q6HP PRN; Protocol PRN Reason: PAIN/FEVER > 101 Last Infusion: 07/06/21 04:08 Dose: Infused Documented by: Vancomycin HCl 1,000 mg/ (Sodium Chloride) 250 mls @ 250 mls/hr IV Q24H [facility] Insulin Human Lispro (Insulin Lispro 1 Unit/0.01 Ml Unit) 0 unit SQ [facility]; Protocol Last Admin: 07/07/21 08:38 Dose: 2 unit Documented by: Lorazepam (Lorazepam 2 Mg/Ml Vial) 0 mg IV Q1HP PRN PRN Reason: Seizure Activity Lorazepam (Lorazepam 2 Mg/Ml Vial) 1 mg IV Q1HP PRN PRN Reason: Seizure Activity Meclizine HCl (Meclizine 25 Mg Tablet) 12.5 mg PO TID [facility] Last Admin: 07/07/21 08:40 Dose: 12.5 mg Documented by: Metoclopramide HCl (Metoclopramide 10 Mg/2 Ml Vial) 10 mg IV Q6HP PRN PRN Reason: Nausea And Vomiting Nortriptyline HCl (Nortriptyline 25 Mg Capsule) 50 mg PO QHS [facility] Last Admin: 07/06/21 21:34 Dose: 50 mg Documented by: Olanzapine (Olanzapine 5 Mg Tablet) 10 mg PO [facility] Last Admin: 07/06/21 21:35 Dose: 10 mg Documented by: Omeprazole (Omeprazole 20 Mg Capsule) 40 mg PO ACB [facility] Last Admin: 07/07/21 08:40 Dose: 40 mg Documented by: Ondansetron HCl (Ondansetron 4 Mg/2 Ml Vial) 4 mg IV Q4HP PRN PRN Reason: Nausea And Vomiting Oxybutynin Chloride (Oxybutynin Chloride 5 Mg Tab.Xl.24h) 10 mg PO QDAY [facility] Last Admin: 07/07/21 08:39 Dose: 10 mg Documented by: Phenytoin Sodium (Phenytoin Sod 100 Mg Capsule) 100 mg PO BID@0800,1200 [facility] Last Admin: 07/07/21 08:40 Dose: 100 mg Documented by: Phenytoin Sodium (Phenytoin Sod 100 Mg Capsule) 200 mg PO [facility] Last Admin: 07/06/21 21:34 Dose: 200 mg Documented by: Polyethylene Glycol (Polyethylene Glycol 3350 17 Gm Packet) 17 gm PO DAILYP PRN PRN Reason: Constipation Potassium Chloride (Potassium Chloride 20 Meq Tablet) 40 meq PO UD PRN PRN Reason: Potssium is 3-3.5 Last Admin: 07/03/21 22:03 Dose: 40 meq Documented by: Potassium Chloride (Potassium Chloride 20 Meq Tablet) 40 meq PO UD PRN PRN Reason: Potassium < 3 Sitagliptin Phosphate (Sitagliptin 50 Mg Tablet) 50 mg PO DAILY [facility] Last Admin: 07/07/21 08:39 Dose: 50 mg Documented by: Sodium Chloride (0.9 % Sodium Chloride 10 Ml Syringe) 10 ml IV Q8 [facility] Last Admin: 07/07/21 06:00 Dose: 10 ml Documented by: Vancomycin HCl (Vancomycin Per Pharmacy) 1 order IV UD [facility]; Protocol A/P Assessment and plan (1) Acute UTI (urinary tract infection): Status: Acute (2) Diabetes mellitus type 2 in nonobese: Status: Chronic (3) Sacral decubitus ulcer, stage III: Status: Acute (4) Hypertension, essential: Status: Chronic (5) Depressive disorder: Status: Chronic Comment: recurrent, recent grief reaction from brother's (6) Schizophrenia: Status: Chronic Comment: Unspec/Chronic (7) Dysphagia: Status: Acute Narrative A/P Narrative: Assessment and Plans: 1. UTI: Stays in inpatient med surg Urine culture E coli Blood culture no growth to date Rocephin cbc w. auto diff in the AM to trend WBC Tylenol PRN fever 2. Sacral ulcer stage 3: Dr. Mckeon consulted for wound care, recs. appreciated Tylenol PRN fever Vancomycin Blood culture no growth to date Wound culture no growth to date 3. Schizophrenia with depression: Buspirone Duloxetine Nortriptyline Olanzapine 4. T2DM: HgA1c Januvia Correctional scale insulin AC HS Accu Chek AC HS Hypoglycemia protocol Diabetic diet 5. Essential HTN: Currently normotensive Continue Coreg 6. Dysphagia: Speech therapist evaluation: level 6 dysphagia diet GI ppx: oral PPI DVT ppx: Lovenox Code status: DNI DNR Prognosis: guarded Disposition: inpatient med surg; PT OT evaluations Time Spent With Patient Time: Total time spent is greater than 50% in coordination of care (as documented) at patient's floor/unit and/or counseling patient: Total time spent with greater than 50% in coordination of care (as documented) at patient's floor/unit and/or counseling patient:: Greater than 35 minutes
[2021-07-07] MEDS: ACETAMINOPHEN 325 MG TABLET PO PRN (12:24)
[2021-07-07] MEDS ORDERED: METOCLOPRAMIDE 10 MG/2 ML VIAL IV PRN (12:33)
[2021-07-07] MEDS ORDERED: DEXTROSE 31 GM ORAL.SUSP PO PRN (12:33)
[2021-07-07] MEDS ORDERED: ACETAMINOPHEN 650 MG/65 ML BAG IV PRN (12:33)
[2021-07-07] MEDS ORDERED: VANCOMYCIN PER PHARMACY IV SCH (12:33)
[2021-07-07] MEDS ORDERED: ONDANSETRON 4 MG/2 ML VIAL IV PRN (12:33)
[2021-07-07] MEDS ORDERED: DEXTROSE 50% 50 ML VIAL IV PRN (12:33)
[2021-07-07] MEDS ORDERED: POTASSIUM CHLORIDE 40 MEQ in DEXTROSE 5% IN WATER 500 ML IV PRN (12:33)
[2021-07-07] MEDS ORDERED: IPRATROPIUM/ALBUTEROL 3 ML AMPUL.NEB NEB PRN (12:33)
[2021-07-07] MEDS ORDERED: MAGNESIUM SULFATE 2 GM/50 ML BAG IV PRN (12:33)
[2021-07-07] MEDS ORDERED: POLYETHYLENE GLYCOL 3350 17 GM PACKET PO PRN (12:33)
[2021-07-07] MEDS ORDERED: LORazepam 2 MG/ML VIAL IV PRN ×2 (12:33)
[2021-07-07] MEDS ORDERED: POTASSIUM CHLORIDE 20 MEQ TABLET PO PRN ×2 (12:33)
[2021-07-07] MEDS: NORTRIPTYLINE 25 MG CAPSULE PO SCH (21:54)
[2021-07-07] MEDS: OLANZapine 5 MG TABLET PO SCH (21:55)
[2021-07-08] MEDS: ACETAMINOPHEN 325 MG TABLET PO PRN ×2 (04:28→21:19)
[2021-07-08] MEDS: 0.9 % SODIUM CHLORIDE 10 ML SYRINGE IV SCH ×3 (04:28→21:22)
[2021-07-08 07:37] LABS: Basophils # (Auto) 0.02 K/mcL (0.00-0.30); Basophils % (Auto) 0.2 % (0.0-2.0); Eosinophils # (Auto) 0.24 K/mcL (0.00-0.70); Eosinophils % (Auto) 2.6 % (0.0-7.0); Hematocrit 25.1 % (34.1-44.9); Hemoglobin 7.9 g/dL (11.2-15.7); Lymphocytes # (Auto) 0.69 K/mcL (1.50-4.80); Lymphocytes % (Auto) 7.5 % (15.5-49.0); Mean Corpuscular HGB Conc 31.5 g/dL (31.0-36.0); Mean Platelet Volume 10.8 fL (7.4-10.4); Monocytes # (Auto) 0.59 K/mcL (0.10-0.90); Monocytes % (Auto) 6.4 % (1.0-12.0); Neutrophils % (Auto) 83.3 % (38.0-78.0); Platelet Count 85 K/mcL (140-440); RBC 2.56 M/mcL (3.59-5.38); Red Cell Distribution Width 14.6 % (11.5-14.5); WBC 9.2 K/mcL (4.5-11.0)
[2021-07-08] MEDS: INSULIN LISPRO 1 UNIT/0.01 ML UNIT SQ SCH ×4 (08:08→21:21)
[2021-07-08] MEDS: OXYBUTYNIN CHLORIDE 5 MG TAB.XL.24H PO SCH (08:08)
[2021-07-08] MEDS: cefTRIAXone 1 GM VIAL IV SCH (08:09)
[2021-07-08] MEDS: PHENYTOIN SOD 100 MG CAPSULE PO SCH ×3 (08:09→21:19)
[2021-07-08] MEDS: DULoxetine 30 MG CAPSULE PO SCH (08:09)
[2021-07-08] MEDS: OMEPRAZOLE 20 MG CAPSULE PO SCH (08:09)
[2021-07-08] MEDS: sitaGLIPtin 50 MG TABLET PO SCH (08:09)
[2021-07-08] MEDS: CARVEDILOL 12.5 MG TABLET PO SCH ×2 (08:10→17:19)
[2021-07-08] MEDS: MECLIZINE 25 MG TABLET PO SCH ×3 (08:10→21:20)
[2021-07-08] MEDS: busPIRone 5 MG TABLET PO SCH ×2 (08:10→21:20)
[2021-07-08] MEDS: ENOXAPARIN 40 MG/0.4 ML SYRINGE SQ SCH (08:11)
[2021-07-08 08:23] LABS: ALT/SGPT 7 U/L (<40); AST/SGOT 12 U/L (<32); Albumin 2.1 gm/dL (3.2-5.2); Albumin/Globulin Ratio 0.7 (1.0-2.3); Alkaline Phosphatase 122 U/L (39-117); Bilirubin,Total 0.2 mg/dL (0.1-1.0); Blood Urea Nitrogen 23 mg/dL (8-23); Calcium 8.9 mg/dL (8.6-10.4); Carbon Dioxide 21 mmol/L (22-30); Chloride 110 mmol/L (96-108); Globulin 3.1 gm/dL (2.2-3.7); Glomerular Filtration Rate 93; Glucose 153 mg/dL (70-105)
[2021-07-08] MEDS: VANCOMYCIN 1,000 MG in 0.9 % SODIUM CHLORIDE 250 ML IV SCH (09:56)
--- NOTE | 2021-07-08 14:09 | Internal Med Progress Note ---
SUBJECTIVE Subjective Patient information: Note initiated : 07/08/21 at 2:05 pm Service Date, if different from initiated Date: [] Patient: Bibi Murrell a 70 y/o F admitted on 07/03/21 for fall. Chief Complaint: [UTI, altered mental status] Interval history: History of present illness: Ms. Murrell is a 70 year old F History obtained from chart as patient is a poor historian and could not give me much information. Per the report patient was found on the floor covered in urine. Last seen normal 2 days prior by family members. Patient confused. She is aware of her name and that she is in the hospital but could not give any course of events or answer any other questions with clarity. In the ED she was found to have elevated sodium elevated BUN/creatinine ratio mildly elevated CK. Urine concerning for infection. Concern for sepsis in the ED. She has had several hospitalizations since 2017 at our similar presentation. She also has a history of epilepsy as well as schizophrenia and perhaps she had a seizure. She did say to me during the course of my interview that she did not take her new medication but I was unable to ascertain who prescribed it to her and what the name of the medication was or what it was for -she cannot give me any details. 07/04 Patient slept well per nursing staff. Patient confused. I suspect she may not have been taking her medications correctly, Dilantin level was quite low. CK improved, sodium within normal limits. Still acidotic. BUN/creatinine improved. 07/05 Mentation a bit more clear this morning. Was febrile last night. Urine culture with E. coli. Blood cultures pending. No diarrhea. She has occasional cough and nursing notes cough with eating and drinking. Denies shortness of breath or other complaints. CPK within normal limits. Electrolyte abnormalities present. She does admit to missing a lot of her medications. 07/06 Patient having fevers still. Pending blood cultures. Urine culture growing E. coli. Mentation similar to yesterday. Chemistry still pending. 07/07: Afebrile. MRI brain: increased signal in the sulci of the tentorium likely artifact. No evidence of acute brain injury from recent falls. Urine culture: E. coli. Wound and blood culure no growth to date. Denies fever or chills. Denies dysuria. Denies back pain. c/o left lateral hip pain. Denies confusion or lethargy. 07/08: Afebrile. Urine culture: E. coli. Wound and blood culture no growth to date. Denies fever or chills. Denies dysuria. Denies back pain. c/o left lateral hip pain. Denies confusion or lethargy. Constitutional Vitals: Vital Signs Temp Pulse Resp BP Pulse Ox 36.1 C 76 20 108/55 98 07/08/21 08:00 07/08/21 08:00 07/08/21 08:00 07/08/21 08:00 07/08/21 08:00 Period Temp Pulse Resp BP Sys/Jessica Pulse Ox Last 24 Hr 36.1 C-36.7 C 76-84 12-22 105-123/52-55 98-100 Intake and Output 07/08/21 07/08/21 07/08/21 05:59 13:59 21:59 Intake Total 400 730 Output Total 835 Balance -435 730 Intake & Output: Intake & Output 07/08/21 07/08/21 07/08/21 05:59 13:59 21:59 Intake Total 400 730 Output Total 835 Balance -435 730 Intake: IV 250 Vancomycin 1,000 mg In Sodium 250 Chloride 0.9% 250 ml @ 250 mls/ hr IV Q24H [facility] Rx#:[id number] Oral 400 480 Output: Urine Catheter Amount 835 Other: Meal Breakfast Percent of Meal Consumed 75% Feeding Ability Independent Urine Appearance Clear Urine Color Bright Yellow Stool Size Large Stool Color Brown Stool Consistency Formed General appearance: cooperative and no acute distress Head Head exam: Present atraumatic and normocephalic Eye Eye exam: Present EOMI and PERRL ENT ENT exam: Present mucous membranes moist, normal exam and normal external ear exam Neck Neck exam: Present normal inspection; Absent lymphadenopathy, tenderness and thyromegaly Respiratory Respiratory exam: Absent accessory muscle use, respiratory distress and wheezes Cardiovascular Cardiovascular exam: Present normal rate and rhythm; Absent JVD GI/Abdominal GI/Abdominal exam: Present normal bowel sounds and soft; Absent organomegaly and tenderness Additional comments: Bai catheter in place Extremities Exam Extremities exam: Present full ROM, normal capillary refill and normal inspection; Absent tenderness Neurological Exam Neurological exam: Present alert, CN II-XII intact and oriented X3; Absent motor sensory deficit Psychiatric Psychiatric exam: Present normal affect and normal mood; Absent anxious and depressed Skin Skin exam: Present dry; Absent intact Additional comments: stage [address] OBJ DATA Labs CBC & Chem 7: 07/08/21 06:02 07/08/21 06:02 Labs: Abnormal Lab Results 07/08/21 07/08/21 07/07/21 06:02 06:02 05:34 RBC 2.56 L 2.68 L Hgb 7.9 L 8.3 L Hct 25.1 L 26.8 L RDW 14.6 H 15.3 H Plt Count 85 L 76 L MPV 10.8 H 10.7 H Neut % (Auto) 83.3 H 85.2 H Lymph % (Auto) 7.5 L 6.5 L Lymph # (Auto) 0.69 L 0.58 L ESR Chloride 110 H Carbon Dioxide 21 L BUN Glucose 153 H Magnesium 1.5 L Alkaline Phosphatase 122 H C-Reactive Protein Total Protein 5.2 L Albumin 2.1 L Albumin/Globulin Ratio 0.7 L Triglycerides Procalcitonin 07/07/21 07/07/21 07/07/21 05:33 05:33 05:33 RBC Hgb Hct RDW Plt Count MPV Neut % (Auto) Lymph % (Auto) Lymph # (Auto) ESR Chloride 109 H Carbon Dioxide 18 L BUN Glucose 160 H Magnesium Alkaline Phosphatase 139 H C-Reactive Protein 29.50 H Total Protein 5.4 L Albumin 2.1 L Albumin/Globulin Ratio 0.6 L Triglycerides Procalcitonin 2.20 H 07/06/21 07/06/21 07/06/21 05:30 05:30 05:30 RBC Hgb Hct RDW Plt Count MPV Neut % (Auto) Lymph % (Auto) Lymph # (Auto) ESR 122 H Chloride Carbon Dioxide BUN Glucose Magnesium Alkaline Phosphatase C-Reactive Protein 30.30 H Total Protein Albumin Albumin/Globulin Ratio Triglycerides Procalcitonin 3.54 H 07/06/21 05:30 RBC Hgb Hct RDW Plt Count MPV Neut % (Auto) Lymph % (Auto) Lymph # (Auto) ESR Chloride 113 H Carbon Dioxide 16 L BUN 27 H Glucose 172 H Magnesium 1.5 L Alkaline Phosphatase C-Reactive Protein Total Protein 5.3 L Albumin 2.0 L Albumin/Globulin Ratio 0.6 L Triglycerides 162 H Procalcitonin Meds: Medications Acetaminophen (Acetaminophen 325 Mg Tablet) 650 mg PO Q6HP PRN; Protocol PRN Reason: Per Pain Protocol/Fever > 101 Last Admin: 07/08/21 04:28 Dose: 650 mg Documented by: Albuterol/Ipratropium (Ipratropium/Albuterol 3 Ml Ampul.Neb) 3 ml NEB Q4HP PRN PRN Reason: Shortness Of Breath Buspirone HCl (Buspirone 5 Mg Tablet) 7.5 mg PO BID [facility] Last Admin: 07/08/21 08:10 Dose: 7.5 mg Documented by: Carvedilol (Carvedilol 12.5 Mg Tablet) 12.5 mg PO BIDCC [facility] Last Admin: 07/08/21 08:10 Dose: 12.5 mg Documented by: Ceftriaxone Sodium (Ceftriaxone 1 Gm Vial) 1 gm IV DAILY [facility] Stop: 07/09/21 09:01 Last Admin: 07/08/21 08:09 Dose: 1 gm Documented by: Dextrose (Dextrose 50% 50 Ml Vial) 0 ml IV UD PRN PRN Reason: Hypoglycemia Diagnostic Test (Pha) (Accu-Chek 1 Each Strip) 1 each FS ACHS [facility] Last Admin: 07/08/21 12:05 Dose: 1 each Documented by: Duloxetine HCl (Duloxetine 30 Mg Capsule) 60 mg PO DAILY [facility] Last Admin: 07/08/21 08:09 Dose: 60 mg Documented by: Enoxaparin Sodium (Enoxaparin 40 Mg/0.4 Ml Syringe) 40 mg SQ DAILY [facility] Last Admin: 07/08/21 08:11 Dose: 40 mg Documented by: Glucose (Dextrose 31 Gm Oral.Susp) 15 gm PO PRN PRN PRN Reason: Hypoglycemia Acetaminophen (Ofirmev) 650 mg in 65 mls @ 130 mls/hr IV Q6HP PRN; Protocol PRN Reason: PAIN/FEVER > 101 Magnesium Sulfate (Magnesium Sulfate) 2 gm in 50 mls @ 50 mls/hr IV UD PRN PRN Reason: Magnesium </= 1.6 Vancomycin HCl 1,000 mg/ (Sodium Chloride) 250 mls @ 250 mls/hr IV Q24H [facility] Last Infusion: 07/08/21 12:14 Dose: Infused Documented by: Potassium Chloride 40 meq/ (Dextrose) 520 mls @ 130 mls/hr IV UD PRN PRN Reason: Potassium < 3 Insulin Human Lispro (Insulin Lispro 1 Unit/0.01 Ml Unit) 0 unit SQ [facility]; Protocol Last Admin: 07/08/21 12:05 Dose: 6 unit Documented by: Lorazepam (Lorazepam 2 Mg/Ml Vial) 0 mg IV Q1HP PRN PRN Reason: Seizure Activity Meclizine HCl (Meclizine 25 Mg Tablet) 12.5 mg PO TID [facility] Last Admin: 07/08/21 08:10 Dose: 12.5 mg Documented by: Metoclopramide HCl (Metoclopramide 10 Mg/2 Ml Vial) 10 mg IV Q6HP PRN PRN Reason: Nausea And Vomiting Nortriptyline HCl (Nortriptyline 25 Mg Capsule) 50 mg PO QHS [facility] Last Admin: 07/07/21 21:54 Dose: 50 mg Documented by: Olanzapine (Olanzapine 5 Mg Tablet) 10 mg PO [facility] Last Admin: 07/07/21 21:55 Dose: 10 mg Documented by: Omeprazole (Omeprazole 20 Mg Capsule) 40 mg PO ACB [facility] Last Admin: 07/08/21 08:09 Dose: 40 mg Documented by: Ondansetron HCl (Ondansetron 4 Mg/2 Ml Vial) 4 mg IV Q4HP PRN PRN Reason: Nausea And Vomiting Oxybutynin Chloride (Oxybutynin Chloride 5 Mg Tab.Xl.24h) 10 mg PO QDAY [facility] Last Admin: 07/08/21 08:08 Dose: 10 mg Documented by: Phenytoin Sodium (Phenytoin Sod 100 Mg Capsule) 100 mg PO BID@0800,1200 [facility] Last Admin: 07/08/21 12:05 Dose: 100 mg Documented by: Phenytoin Sodium (Phenytoin Sod 100 Mg Capsule) 200 mg PO [facility] Last Admin: 07/07/21 21:54 Dose: 200 mg Documented by: Polyethylene Glycol (Polyethylene Glycol 3350 17 Gm Packet) 17 gm PO DAILYP PRN PRN Reason: Constipation Last Admin: 07/07/21 13:31 Dose: 17 gm Documented by: Potassium Chloride (Potassium Chloride 20 Meq Tablet) 40 meq PO UD PRN PRN Reason: Potssium is 3-3.5 Potassium Chloride (Potassium Chloride 20 Meq Tablet) 40 meq PO UD PRN PRN Reason: Potassium < 3 Sitagliptin Phosphate (Sitagliptin 50 Mg Tablet) 50 mg PO DAILY [facility] Last Admin: 07/08/21 08:09 Dose: 50 mg Documented by: Sodium Chloride (0.9 % Sodium Chloride 10 Ml Syringe) 10 ml IV Q8 [facility] Last Admin: 07/08/21 12:05 Dose: 10 ml Documented by: Vancomycin HCl (Vancomycin Per Pharmacy) 1 order IV UD [facility]; Protocol A/P Assessment and plan (1) Acute UTI (urinary tract infection): Status: Acute (2) Diabetes mellitus type 2 in nonobese: Status: Chronic (3) Sacral decubitus ulcer, stage III: Status: Acute (4) Hypertension, essential: Status: Chronic (5) Depressive disorder: Status: Chronic Comment: recurrent, recent grief reaction from brother's (6) Schizophrenia: Status: Chronic Comment: Unspec/Chronic (7) Dysphagia: Status: Acute Narrative A/P Narrative: Assessment and Plans: 1. UTI: Stays in inpatient med surg Urine culture E coli Blood culture no growth to date Rocephin until 07/09 cbc w. auto diff in the AM to trend WBC Tylenol PRN fever 2. Sacral ulcer stage 3: Dr. Merchant consulted for wound care, recs. appreciated Tylenol PRN fever Vancomycin, switch to oral antibiotics at time of discharge Blood culture no growth to date Wound culture no growth to date 3. Schizophrenia with depression: Buspirone Duloxetine Nortriptyline Olanzapine 4. T2DM: HgA1c Januvia Correctional scale insulin AC HS Accu Chek AC HS Hypoglycemia protocol Diabetic diet 5. Essential HTN: Currently normotensive Continue Coreg 6. Dysphagia: Speech therapist evaluation: level 6 dysphagia diet GI ppx: oral PPI DVT ppx: Lovenox Code status: DNI DNR Prognosis: stable Disposition: inpatient med surg; PT OT evaluations Time Spent With Patient Time: Total time spent is greater than 50% in coordination of care (as documented) at patient's floor/unit and/or counseling patient:
--- NOTE | 2021-07-08 20:26 | General Surgery Consult Note ---
HPI Data of Consult Patient: new to practice Consult date: 07/08/21 Primary Care Provider: Cali Herron Consult Narrative Chief complaint: Sacral Decubitus Reason for consult: Sacral Decubitus History of present illness: We were asked to see Bibi today in coverage of the wound service for a worsening Sacral Decubitus ulcer. She has had past pressure ulcerations and has been recently readmitted with chronically recurrent issues of confusion, immobility, mental health challenges and other concerns as well. We were asked to see her to further evaluate an area of sacral pressure ulceration. The area seems somewhat more pronounced and wound nursing care has been seeing her as well. cc:: CC: Raman Pineda Review of Systems All systems: reviewed and no additional remarkable complaints except as stated PFSH PFSH All Active Problems (Updated 07/07/21 @ 12:11 by Rigo Suarez MD) Dysphagia (Acute) Sacral decubitus ulcer, stage III (Acute) Acute dehydration (Acute) Acute UTI (urinary tract infection) (Acute) Abrasion of ankle without infection (Acute) Pressure sore on ankle (Acute) Diabetic keto-acidosis (Acute) Acute alteration in mental status (Acute) Hypokalemia (Acute) Metabolic acidosis (Acute) Diabetes mellitus type 2 in nonobese (Chronic) Excessive cerumen in both ear canals (Acute) Mental status change (Acute) Confusion (Acute) Paranoid ideation (Acute) Bacterial cystitis (Acute) Rhabdomyolysis (Acute) Metabolic acidosis (Acute) Delusions (Acute) GERD (gastroesophageal reflux disease) (Chronic) Diabetes mellitus type 2 in nonobese (Chronic) Pyelonephritis (Acute) Decubitus Ulcer (Acute) Paronychia of finger of left hand (Acute) Diarrhea of presumed infectious origin (Chronic) Decubitus Ulcer (Acute) Diarrhea due to drug (Acute) Trigger finger, acquired (Chronic) Schizophrenia (Chronic) Menopausal syndrome (Chronic) Hypertension, essential (Chronic) Hyperlipemia (Chronic) Depressive disorder (Chronic) Medical History (Updated 07/07/21 @ 12:11 by Rigo Suarez MD) Acute bronchitis Decubitus ulcer of buttock, stage 2 Depressive disorder recurrent, recent grief reaction from brother's Hyperlipemia Hypertension, essential Impacted cerumen Menopausal syndrome Menopausal-Postmenopausal Disorder NOS Neck sprain and strain Postmenopausal related mood disorder Repetitive strain injury of lower back Schizophrenia Unspec/Chronic Trigger finger, acquired Type 2 diabetes mellitus Surgical History History of colonoscopy (04/04/18) No history of previous surgery Family History Unknown Diabetes mellitus Cardiac disease Malignant neoplasm colon cancer Presence of cardiac pacemaker Father Cerebrovascular accident, Onset Age: 80 Malignant neoplasm of colon Family/Other Malignant neoplasm of colon uncle Social History (Updated 08/28/18 @ 10:28 by Cali Herron MD) household members: alone lives independently: Yes marital status: single alcohol intake frequency: holiday/special occasion only MEDS/ALLERGIES Home Medications and Allergies Home Medications Medication Instructions Recorded Confirmed Type albuterol sulfate 90 mcg/actuation 2 puff INHALATION Q6H PRN #18 g 08/04/16 07/03/21 Rx aerosol inhaler TRUEplus Lancets 28 gauge #400 each NS 09/26/17 07/03/21 Rx True Metrix Glucose Meter #1 each NS 09/26/17 07/03/21 Rx sitagliptin 100 mg tablet 100 mg PO QDAY #90 tab 11/28/17 07/03/21 Rx phenytoin sodium extended 100 mg See Rx Instructions PO .COMPLEX 12/01/17 07/03/21 Rx capsule #60 cap duloxetine 60 mg capsule,delayed 60 mg PO QDAY #30 cap 12/21/17 07/03/21 Rx release gemfibrozil 600 mg tablet 600 mg PO BID #60 tab 12/21/17 07/03/21 Rx oxybutynin chloride 10 mg 10 mg PO QDAY #30 tab 01/23/18 07/03/21 Rx tablet,extended release 24 hr omeprazole 40 mg capsule,delayed 40 mg PO ACB #90 cap 03/27/18 07/03/21 Rx release True Metrix Glucose Test Strip #100 each NS 05/29/18 07/03/21 Rx carvedilol 12.5 mg tablet 12.5 mg PO BID #60 tab 07/06/18 07/03/21 Rx buspirone 7.5 mg PO BID 03/08/21 07/03/21 History meclizine 12.5 mg PO TID 03/08/21 07/03/21 History metformin 500 mg PO BID 03/08/21 07/03/21 History nortriptyline 50 mg PO QHS 03/08/21 07/03/21 History olanzapine 10 mg PO QHS 03/08/21 07/03/21 History Allergies Allergy/AdvReac Type Severity Reaction Status Date / Time ciprofloxacin [From Cipro] Allergy Mild Hives Verified 03/09/21 06:53 Penicillins Allergy Mild Hives Verified 03/09/21 06:53 sulfamethoxazole Allergy Mild Hives Verified 03/09/21 06:53 [From Septra] trimethoprim [From Septra] Allergy Mild Hives Verified 03/10/21 06:55 azithromycin Allergy Unknown Unknown Verified 02/17/21 18:34 cefuroxime [From Ceftin] AdvReac Mild Diarrhea Verified 03/09/21 06:53 tetracycline [Tetracycline] AdvReac Unknown Unknown Verified 02/17/21 18:34 Physical Examination Vital Signs Vital signs: Temp Pulse Resp BP Pulse Ox 98.0 F 81 20 108/61 97 07/08/21 16:00 07/08/21 16:00 07/08/21 16:00 07/08/21 16:00 07/08/21 16:00 General physical appearance General physical exam: other (examined with nursing assistance, is conversant and responsive) Eyes Eye exam: other (eyes appear normal ); negative icteric Head Head exam IM: Present atraumatic and normocephalic Neck Neck exam: trachea midline and other (normal appearance ) Cardiovascular Cardiovascular exam IM: Present normal rate and rhythm and RRR Respiratory Respiratory exam: normal respiratory effort Abdomen Abdomen: Present soft and non tender Integumentary Integumentary: Present other (directed exam with nursing assistance, patient is log rolled to the Right - there is what appears to be a Stage II 4 cm sacral decubitus without infection or substantial drainage ) Neurologic Neurologic: Present disoriented; Absent combative Results Labs Result diagrams: 07/08/21 06:02 07/08/21 06:02 Labs: Abnormal lab results 07/08/21 07/08/21 Range/Units 06:02 06:02 RBC 2.56 L (3.59-5.38) M/mcL Hgb 7.9 L (11.2-15.7) g/dL Hct 25.1 L (34.1-44.9) % RDW 14.6 H (11.5-14.5) % Plt Count 85 L (140-440) K/mcL MPV 10.8 H (7.4-10.4) fL Neut % (Auto) 83.3 H (38.0-78.0) % Lymph % (Auto) 7.5 L (15.5-49.0) % Lymph # (Auto) 0.69 L (1.50-4.80) K/mcL Chloride 110 H (96-108) mmol/L Carbon Dioxide 21 L (22-30) mmol/L Glucose 153 H (70-105) mg/dL Magnesium 1.5 L (1.6-2.5) mg/dL Alkaline Phosphatase 122 H (39-117) U/L Total Protein 5.2 L (5.9-8.4) gm/dL Albumin 2.1 L (3.2-5.2) gm/dL Albumin/Globulin Ratio 0.7 L (1.0-2.3) Diabetes panel 07/08/21 Range/Units 06:02 Sodium 141 (133-145) mmol/L Potassium 3.6 (3.3-5.1) mmol/L Chloride 110 H (96-108) mmol/L Carbon Dioxide 21 L (22-30) mmol/L BUN 23 (8-23) mg/dL Creatinine 0.6 (0.6-1.1) mg/dL Glucose 153 H (70-105) mg/dL Calcium 8.9 (8.6-10.4) mg/dL AST 12 (<32) U/L ALT 7 (<40) U/L Alkaline Phosphatase 122 H (39-117) U/L Total Protein 5.2 L (5.9-8.4) gm/dL Albumin 2.1 L (3.2-5.2) gm/dL Calcium panel 07/08/21 Range/Units 06:02 Calcium 8.9 (8.6-10.4) mg/dL Albumin 2.1 L (3.2-5.2) gm/dL Pituitary panel 07/08/21 Range/Units 06:02 Sodium 141 (133-145) mmol/L Potassium 3.6 (3.3-5.1) mmol/L Chloride 110 H (96-108) mmol/L Carbon Dioxide 21 L (22-30) mmol/L BUN 23 (8-23) mg/dL Creatinine 0.6 (0.6-1.1) mg/dL Glucose 153 H (70-105) mg/dL Calcium 8.9 (8.6-10.4) mg/dL Adrenal panel 07/08/21 Range/Units 06:02 Sodium 141 (133-145) mmol/L Potassium 3.6 (3.3-5.1) mmol/L Chloride 110 H (96-108) mmol/L Carbon Dioxide 21 L (22-30) mmol/L BUN 23 (8-23) mg/dL Creatinine 0.6 (0.6-1.1) mg/dL Glucose 153 H (70-105) mg/dL Calcium 8.9 (8.6-10.4) mg/dL Total Bilirubin 0.2 (0.1-1.0) mg/dL AST 12 (<32) U/L ALT 7 (<40) U/L Alkaline Phosphatase 122 H (39-117) U/L Total Protein 5.2 L (5.9-8.4) gm/dL Albumin 2.1 L (3.2-5.2) gm/dL All other labs normal. A/P Narrative A/P Narrative: Stage II Sacral Decubitus There is no active evidence of infection at this time and I don't see any clear need for urgent or aggressive debridement at this time, either at the bedside or in the OR. Top priority would be to avoid any direct pressure in this area and to keep the wound moist and covered with padded antimicrobial dressing. Recommend that she continue to be seen in the wound clinic with Dr Ramirez in follow up post discharge to assure this are is healing and that more aggressive measures are not needed Time Spent With Patient Time: Total time spent is greater than 50% in coordination of care (as documented) at patient's floor/unit and/or counseling patient:
[2021-07-08] MEDS: NORTRIPTYLINE 25 MG CAPSULE PO SCH (21:20)
[2021-07-08] MEDS: OLANZapine 5 MG TABLET PO SCH (21:21)
[2021-07-09] MEDS: ACETAMINOPHEN 325 MG TABLET PO PRN (03:17)
[2021-07-09] MEDS: 0.9 % SODIUM CHLORIDE 10 ML SYRINGE IV SCH (04:03)
[2021-07-09 07:42] LABS: Basophils # (Auto) 0.04 K/mcL (0.00-0.30); Basophils % (Auto) 0.5 % (0.0-2.0); Eosinophils # (Auto) 0.21 K/mcL (0.00-0.70); Eosinophils % (Auto) 2.5 % (0.0-7.0); Hematocrit 24.7 % (34.1-44.9); Hemoglobin 7.8 g/dL (11.2-15.7); Lymphocytes # (Auto) 0.99 K/mcL (1.50-4.80); Lymphocytes % (Auto) 11.9 % (15.5-49.0); Mean Cell Volume 99.2 fL (80.0-100.0); Mean Corpuscular HGB Conc 31.6 g/dL (31.0-36.0); Mean Platelet Volume 10.8 fL (7.4-10.4); Monocytes # (Auto) 0.62 K/mcL (0.10-0.90); Monocytes % (Auto) 7.5 % (1.0-12.0); Neutrophils % (Auto) 77.6 % (38.0-78.0); Platelet Count 120 K/mcL (140-440); RBC 2.49 M/mcL (3.59-5.38); Red Cell Distribution Width 14.3 % (11.5-14.5); WBC 8.3 K/mcL (4.5-11.0)
[2021-07-09 07:50] LABS: ALT/SGPT 8 U/L (<40); AST/SGOT 13 U/L (<32); Albumin 2.1 gm/dL (3.2-5.2); Albumin/Globulin Ratio 0.7 (1.0-2.3); Alkaline Phosphatase 120 U/L (39-117); Bilirubin,Total 0.2 mg/dL (0.1-1.0); Blood Urea Nitrogen 22 mg/dL (8-23); Calcium 8.9 mg/dL (8.6-10.4); Carbon Dioxide 20 mmol/L (22-30); Chloride 112 mmol/L (96-108); Globulin 2.9 gm/dL (2.2-3.7); Glomerular Filtration Rate 75; Glucose 149 mg/dL (70-105)
[2021-07-09] MEDS: INSULIN LISPRO 1 UNIT/0.01 ML UNIT SQ SCH ×2 (08:18→13:13)
--- NOTE | 2021-07-09 08:47 | Discharge Summary ---
Discharge Provider Provider Patient information: Note initiated : 07/09/21 at 8:43 am Service Date, if different from initiated Date: [] Patient: Bibi Murrell 70 y/o F admitted on 07/03/21 for fall. Chief Complaint: [] Date of admission: 07/03/21 17:44 Discharge date: 07/09/21 Primary care physician: Cali Herron Consults: 07/03/21 Consult to Physician [CONS] Stat Comment: Consulting Provider: Raman Pineda Reason For Exam: Physician to Consult 07/07/21 08:22 Consult to Physician [CONS] Routine Comment: Consulting Provider: Samuel Mckeon Reason For Exam: Physician to Consult 07/08/21 14:04 Consult to Physician [CONS] Routine Comment: sacral wound Consulting Provider: Pa Merchant Reason For Exam: Physician to Consult Discharge Meds Discharge Medications Home Medications albuterol sulfate 90 mcg/actuation aerosol inhaler 2 puff INHALATION Q6H PRN #18 g 08/04/16 [Rx Confirmed 07/03/21 Last Taken Unknown] TRUEplus Lancets 28 gauge #400 each NS 09/26/17 [Rx Confirmed 07/03/21 Last Taken Unknown] True Metrix Glucose Meter #1 each NS 09/26/17 [Rx Confirmed 07/03/21 Last Taken Unknown] sitagliptin 100 mg tablet 100 mg PO QDAY #90 tab 11/28/17 [Rx Confirmed 07/03/21 Last Taken Unknown] phenytoin sodium extended 100 mg capsule See Rx Instructions PO .COMPLEX #60 cap 12/01/17 [Rx Confirmed 07/03/21 Last Taken Unknown] duloxetine 60 mg capsule,delayed release 60 mg PO QDAY #30 cap 12/21/17 [Rx Confirmed 07/03/21 Last Taken Unknown] gemfibrozil 600 mg tablet 600 mg PO BID #60 tab 12/21/17 [Rx Confirmed 07/03/21 Last Taken Unknown] oxybutynin chloride 10 mg tablet,extended release 24 hr 10 mg PO QDAY #30 tab 01/23/18 [Rx Confirmed 07/03/21 Last Taken Unknown] omeprazole 40 mg capsule,delayed release 40 mg PO ACB #90 cap 03/27/18 [Rx Confirmed 07/03/21 Last Taken Unknown] True Metrix Glucose Test Strip #100 each NS 05/29/18 [Rx Confirmed 07/03/21 Last Taken Unknown] carvedilol 12.5 mg tablet 12.5 mg PO BID #60 tab 07/06/18 [Rx Confirmed 07/03/21 Last Taken Unknown] buspirone 7.5 mg PO BID 03/08/21 [History Confirmed 07/03/21 Last Taken Unknown] meclizine 12.5 mg PO TID 03/08/21 [History Confirmed 07/03/21 Last Taken Unknown] metformin 500 mg PO BID 03/08/21 [History Confirmed 07/03/21 Last Taken Unknown] nortriptyline 50 mg PO QHS 03/08/21 [History Confirmed 07/03/21 Last Taken Unknown] olanzapine 10 mg PO QHS 03/08/21 [History Confirmed 07/03/21 Last Taken Unknown] COURSE Hospital Course Hospital course: History of present illness: Ms. Murrell is a 70 year old F History obtained from chart as patient is a poor historian and could not give me much information. Per the report patient was found on the floor covered in urine. Last seen normal 2 days prior by family members. Patient confused. She is aware of her name and that she is in the hospital but could not give any course of events or answer any other questions with clarity. In the ED she was found to have elevated sodium elevated BUN/creatinine ratio mildly elevated CK. Urine concerning for infection. Concern for sepsis in the ED. She has had several hospitalizations since 2017 at our similar presentation. She also has a history of epilepsy as well as schizophrenia and perhaps she had a seizure. She did say to me during the course of my interview that she did not take her new medication but I was unable to ascertain who prescribed it to her and what the name of the medication was or what it was for -she cannot give me any details. 07/04 Patient slept well per nursing staff. Patient confused. I suspect she may not have been taking her medications correctly, Dilantin level was quite low. CK improved, sodium within normal limits. Still acidotic. BUN/creatinine improved. 07/05 Mentation a bit more clear this morning. Was febrile last night. Urine culture with E. coli. Blood cultures pending. No diarrhea. She has occasional cough and nursing notes cough with eating and drinking. Denies shortness of breath or other complaints. CPK within normal limits. Electrolyte abnormalities present. She does admit to missing a lot of her medications. 07/06 Patient having fevers still. Pending blood cultures. Urine culture growing E. coli. Mentation similar to yesterday. Chemistry still pending. 07/07: Afebrile. MRI brain: increased signal in the sulci of the tentorium likely ar tifact. No evidence of acute brain injury from recent falls. Urine culture: E. coli. Wound and blood culure no growth to date. Denies fever or chills. Denies dysuria. Denies back pain. c/o left lateral hip pain. Denies confusion or lethargy. 07/08: Afebrile. Urine culture: E. coli. Wound and blood culture no growth to date. Denies fever or chills. Denies dysuria. Denies back pain. c/o left lateral hip pain. Denies confusion or lethargy. 07/09: Reached clinical stability, discharged to SNF. Discharge diagnosis: UTI, delirium Time Spent with Patient Time attestation: Total time spent providing and/or coordinating discharge services: History of present illness: Ms. Murrell is a 70 year old F History obtained from chart as patient is a poor historian and could not give me much information. Per the report patient was found on the floor covered in urine. Last seen normal 2 days prior by family members. Patient confused. She is aware of her name and that she is in the hospital but could not give any course of events or answer any other questions with clarity. In the ED she was found to have elevated sodium elevated BUN/creatinine ratio mildly elevated CK. Urine concerning for infection. Concern for sepsis in the ED. She has had several hospitalizations since 2017 at our similar presentation. She also has a history of epilepsy as well as schizophrenia and perhaps she had a seizure. She did say to me during the course of my interview that she did not take her new medication but I was unable to ascertain who prescribed it to her and what the name of the medication was or what it was for -she cannot give me any details. 07/04 Patient slept well per nursing staff. Patient confused. I suspect she may not have been taking her medications correctly, Dilantin level was quite low. CK improved, sodium within normal limits. Still acidotic. BUN/creatinine improved. 07/05 Mentation a bit more clear this morning. Was febrile last night. Urine culture with E. coli. Blood cultures pending. No diarrhea. She has occasional cough and nursing notes cough with eating and d rinking. Denies shortness of breath or other complaints. CPK within normal limits. Electrolyte abnormalities present. She does admit to missing a lot of her medications. 07/06 Patient having fevers still. Pending blood cultures. Urine culture growing E. coli. Mentation similar to yesterday. Chemistry still pending. 07/07: Afebrile. MRI brain: increased signal in the sulci of the tentorium likely artifact. No evidence of acute brain injury from recent falls. Urine culture: E. coli. Wound and blood culure no growth to date. Denies fever or chills. Denies dysuria. Denies back pain. c/o left lateral hip pain. Denies confusion or lethargy. 07/08: Afebrile. Urine culture: E. coli. Wound and blood culture no growth to date. Denies fever or chills. Denies dysuria. Denies back pain. c/o left lateral hip pain. Denies confusion or lethargy. 07/09: Reached clinical stability, discharged to SNF. EXAM Constitutional Vitals: Temp Pulse Resp BP Pulse Ox 36.7 C 84 18 115/55 96 07/09/21 07:08 07/09/21 07:08 07/09/21 07:08 07/09/21 07:08 07/09/21 07:08 General appearance: cooperative and no acute distress Head Head exam: Present atraumatic and normocephalic Eye Eye exam: Present EOMI and PERRL ENT ENT exam: Present mucous membranes moist, normal exam and normal external ear exam Neck Neck exam: Present normal inspection; Absent lymphadenopathy, tenderness and thyromegaly Respiratory Respiratory exam: Absent accessory muscle use, respiratory distress and wheezes Cardiovascular Cardiovascular exam: Present normal rate and rhythm; Absent JVD GI/Abdominal GI/Abdominal exam: Present normal bowel sounds and soft; Absent organomegaly and tenderness Additional comments: Bai catheter in place Extremities Exam Extremities exam: Present full ROM, normal capillary refill and normal inspection; Absent tenderness Neurological Exam Neurological exam: Present alert, CN II-XII intact and oriented X3; Absent motor sensory deficit Psychiatric Psychiatric exam: Present normal affect and normal mood; Absent anxious and depressed Skin Skin exam: Present dry; Absent intact Additional comments: stage 3 sacral ulcer Discharge Data Data Completed and Pending Labs on day of discharge: Labs from last 24 hours 07/09/21 07/09/21 07/09/21 07:56 06:08 06:08 WBC 8.3 RBC 2.49 L Hgb 7.8 L Hct 24.7 L MCV 99.2 MCH 31.3 MCHC 31.6 RDW 14.3 Plt Count 120 L MPV 10.8 H Neut % (Auto) 77.6 Lymph % (Auto) 11.9 L [place] % (Auto) 7.5 Eos % (Auto) 2.5 Baso % (Auto) 0.5 Lymph # (Auto) 0.99 L [place] # (Auto) 0.62 Eos # (Auto) 0.21 Baso # (Auto) 0.04 Absolute Neutrophils 6.45 Sodium 141 Potassium 4.2 Chloride 112 H Carbon Dioxide 20 L Anion Gap 9.0 BUN 22 Creatinine 0.8 GFR Calculation 75 Glucose 149 H Calcium 8.9 Magnesium 1.6 Total Bilirubin 0.2 AST 13 ALT 8 Alkaline Phosphatase 120 H Total Protein 5.0 L Albumin 2.1 L Globulin 2.9 Albumin/Globulin Ratio 0.7 L Vancomycin Trough Pending Preliminary micro results at discharge 07/05/21 08:28 Blood Culture - Preliminary Blood 07/05/21 08:22 Blood Culture - Preliminary Blood 07/07/21 05:28 Blood Culture - Preliminary Blood 07/07/21 05:22 Blood Culture - Preliminary Blood Discharge Plan Patient/Caregiver Discharge Instructions Activity: increase activity as tolerated Diet: Consistent Carbohydrate Prescriptions: Continued albuterol sulfate 90 mcg/actuation HFA aerosol inhaler 2 puff INHALATION Q6H PRN (Reason: for cough wheeze or shortness of breath) Qty: 18 RF: 12 (DME) lancets [TRUEplus Lancets] 28 gauge misc See Dose Instructions .ROUTE .MEDSUPPLY Qty: 400 RF: 3 (DME) blood-glucose meter [True Metrix Glucose Meter] misc See Dose Instructions .ROUTE .MEDSUPPLY Qty: 1 RF: 0 phenytoin sodium extended 100 mg capsule See Rx Instructions PO .COMPLEX Qty: 60 RF: 12 duloxetine 60 mg capsule,delayed release(DR/EC) 60 mg PO QDAY Qty: 30 RF: 12 gemfibrozil 600 mg tablet 600 mg PO BID Qty: 60 RF: 12 oxybutynin chloride 10 mg tablet extended release 24hr 10 mg PO QDAY Qty: 30 RF: 12 omeprazole 40 mg capsule,delayed release(DR/EC) 40 mg PO ACB Qty: 90 RF: 3 carvedilol 12.5 mg tablet 12.5 mg PO BID Qty: 60 RF: 12 sitagliptin [Januvia] 100 mg tablet 100 mg PO QDAY Qty: 90 RF: 3 (DME) blood sugar diagnostic [True Metrix Glucose Test Strip] strip See Dose Instructions .ROUTE .MEDSUPPLY Qty: 100 RF: 3 nortriptyline 25 mg capsule 50 mg PO QHS RF: 0 metformin 850 mg tablet 500 mg PO BID RF: 0 buspirone 5 mg tablet 7.5 mg PO BID RF: 0 olanzapine 10 mg tablet 10 mg PO QHS RF: 0 meclizine 12.5 mg tablet 12.5 mg PO TID RF: 0 Follow Up Plan Follow up with: Gabino Winn MD [Physician] - 07/16/21 9:00 am Cali Herron MD [Primary Care Provider] - Patient Disposition: Xfer SNF Rehab Potential: Good I certify that the patient requires SNF services: Yes Overall status at discharge: patient is back to baseline Discharge Orders: Discharge Order (Routine); Ordered 07/09/21 Ordered By: Rigo Suarez
[2021-07-09] MEDS: VANCOMYCIN 1,000 MG in 0.9 % SODIUM CHLORIDE 250 ML IV SCH (09:18)
[2021-07-09] MEDS: DULoxetine 30 MG CAPSULE PO SCH (09:31)
[2021-07-09] MEDS: OMEPRAZOLE 20 MG CAPSULE PO SCH (09:31)
[2021-07-09] MEDS: MECLIZINE 25 MG TABLET PO SCH (09:31)
[2021-07-09] MEDS: PHENYTOIN SOD 100 MG CAPSULE PO SCH ×2 (09:32→13:14)
[2021-07-09] MEDS: sitaGLIPtin 50 MG TABLET PO SCH (09:32)
[2021-07-09] MEDS: ENOXAPARIN 40 MG/0.4 ML SYRINGE SQ SCH (09:32)
[2021-07-09] MEDS: OXYBUTYNIN CHLORIDE 5 MG TAB.XL.24H PO SCH (09:32)
[2021-07-09] MEDS: CARVEDILOL 12.5 MG TABLET PO SCH (09:32)
[2021-07-09] MEDS: cefTRIAXone 1 GM VIAL IV SCH (09:32)
[2021-07-09] MEDS ORDERED: MAGNESIUM OXIDE 400 MG TABLET PO ONE (09:52)
[2021-07-09] MEDS: busPIRone 5 MG TABLET PO SCH (10:02)
== END 2021-07-09 10:45 | DRG 689 ==
LOC: ED 11:44 → ICU 17:44 → MEDSUR 07-07 14:54
PROVIDERS: ADMIT Internal Medicine; ATTEND Internal Medicine